=== PATIENT | male | born 1950 | race African-American/Black ===

== ENCOUNTER 2017-02-13 01:01 | Observation (INO) | payer BC, MEDICARE, OTHER ==
[2017-02-13 01:16] VITALS: BMI 25.8
--- NOTE | 2017-02-13 01:18 | PDOC ---
History of Present Illness - General Chief Complaint: Chest Pain Stated Complaint: CHEST PAIN Time Seen by Provider: 02/13/17 01:12 Past History - Past Medical History Allergies/Adverse Reactions: Allergies Allergy/AdvReac Type Severity Reaction Status Date / Time No Known Allergies Allergy Verified 02/13/17 01:14 Home Medications: Ambulatory Orders Apixaban [Eliquis] 2.5 mg PO BID 04/15/15 Insulin Glargine,Hum.rec.anlog [Lantus (10mL VIAL) -] 12 units SQ DAILY Carvedilol [Coreg -] 25 mg PO BID #60 tablet 01/26/16 Rosuvastatin [Crestor -] 20 mg PO DAILY #30 tablet 01/26/16 Aspirin Coated [Ecotrin -] 81 mg PO DAILY 02/18/16 Gabapentin 100 mg PO TID PRN 02/18/16 Acetaminophen [Tylenol .Regular Strength -] 650 mg PO Q6H PRN #0 tablet Albuterol 0.083% Nebulizer Shyla [Ventolin 0.083% Nebulizer Soln -] 1 amp NEB Q4H PRN #0 amp 02/19/16 Amlodipine Besylate [Norvasc -] 5 mg PO DAILY #30 tablet 02/19/16 Furosemide [Lasix -] 40 mg PO DAILY #30 tablet 02/19/16 Insulin Sliding Scale [Novolog Vial Sliding Scale -] 1 vial SQ HS units Levofloxacin [Levaquin -] 250 mg PO DAILY #7 tablet 02/19/16 Lisinopril [Prinivil] 5 mg PO DAILY tablet 02/19/16 Pantoprazole Sodium [Protonix -] 40 mg PO DAILY tablet.ec 02/19/16 Anemia: No Asthma: No Cardiac Disorders: Yes (CAD; ATRIAL FIBRILLATION) CVA: No COPD: No CHF: Yes Diabetes: Yes GI Disorders: No Disorders: Yes (RENAL INSUFFICIENCY) HTN: Yes Liver Disease: No Seizures: No Thyroid Disease: No - Surgical History Cardiac Surgery: Yes (POST ANGIOPLASTY) - Immunization History Immunization Up to Date: Yes - Psycho/Social/Smoking Cessation Hx Anxiety: No Suicidal Ideation: No Smoking History: Never smoked Have you smoked in the past 12 months: No Information on smoking cessation initiated: No Hx Alcohol Use: No Drug/Substance Use Hx: No Substance Use Type: None Hx Substance Use Treatment: No *Physical Exam - Vital Signs Last Vital Signs Temp Pulse Resp BP Pulse Ox 98.7 F 106 H 23 170/93 100 02/13/17 01:02/13/17 01:14 02/13/17 01:14 02/13/17 01:02/13/17 01:14
--- NOTE | 2017-02-13 01:36 | PDOC ---
History of Present Illness - General Chief Complaint: Chest Pain Stated Complaint: CHEST PAIN Time Seen by Provider: 02/13/17 01:12 - History of Present Illness Initial Comments: 02/13/17 01:30 67 year old male with PMH of Afib (on eliquist), [place] (01/2016), anemia, HTN, CHF ( EF 37% 01/2016), and DMII presenting with throat pain for the past three weeks that culminated in a "panic attack" earlier today. He said this burning sensation in his throat started all of a sudden three weeks ago. Pain is an 8/ 10 burning bilateral neck pain. Relieved by warm liquids without exacerbating factors. Relapsing and remitting. Nothing was different today about the pain but he just felt anxious because it has been going on for so long. Denies chest pain, nausea, vomiting, sob, diaphoresis, or radiation of pain. However, this exact pain occurred last year when he had his previous KS. 02/13/17 03:45 Past History - Past Medical History Allergies/Adverse Reactions: Allergies Allergy/AdvReac Type Severity Reaction Status Date / Time No Known Allergies Allergy Verified 02/13/17 01:14 Home Medications: Ambulatory Orders Apixaban [Eliquis] 2.5 mg PO BID 04/15/15 Insulin Glargine,Hum.rec.anlog [Lantus (10mL VIAL) -] 12 units SQ DAILY Rosuvastatin [Crestor -] 20 mg PO DAILY #30 tablet 01/26/16 Amlodipine Besylate [Norvasc -] 5 mg PO DAILY #30 tablet 02/19/16 Insulin Sliding Scale [Novolog Vial Sliding Scale -] 1 vial SQ HS units Hydralazine HCl [Apresoline -] 25 mg PO BID 02/13/17 Anemia: No Asthma: No Cardiac Disorders: Yes (CAD; ATRIAL FIBRILLATION) CVA: No COPD: No CHF: Yes Diabetes: Yes GI Disorders: No Disorders: Yes (RENAL INSUFFICIENCY) HTN: Yes Liver Disease: No Seizures: No Thyroid Disease: No - Surgical History Cardiac Surgery: Yes (POST ANGIOPLASTY) - Immunization History Immunization Up to Date: Yes - Psycho/Social/Smoking Cessation Hx Anxiety: No Suicidal Ideation: No Smoking History: Never smoked Have you smoked in the past 12 months: No Information on smoking cessation initiated: No Hx Alcohol Use: No Drug/Substance Use Hx: No Substance Use Type: None Hx Substance Use Treatment: No Review of Systems - Review of Systems Constitutional: No: Chills, Diaphoresis, Fever, Loss of Appetite HEENTM: Yes: Throat Pain Respiratory: No: Cough, Orthopnea, Shortness of Breath, SOB with Exertion Cardiac (ROS): Yes: Irregular Heart Rate. No: Chest Pain, Edema, Palpitations ABD/GI: No: Abdominal Distended, Constipated, Diarrhea, Nausea, Vomiting Neurological: No: Headache, Numbness, Paresthesia Psychiatric: Yes: Anxiety Endocrine: No: Excessive Sweating, Unexplained Weight Gain, Unexplained Weight Loss *Physical Exam - Vital Signs Last Vital Signs Temp Pulse Resp BP Pulse Ox 98.7 F 106 H 23 170/93 100 02/13/17 01:14 02/13/17 01:14 02/13/17 01:14 02/13/17 01:14 02/13/17 01:14 - Physical Exam General Appearance: Yes: Mild Distress HEENT: positive: Normal Voice Neck: positive: Trachea midline, Normal Thyroid, Supple. negative: Tender, Lymphadenopathy (R), Lymphadenopathy (L) Respiratory/Chest: positive: Lungs Clear, Normal Breath Sounds. negative: Respiratory Distress, Accessory Muscle Use Cardiovascular: positive: Irregular (Ocassionally irregular ). negative: Murmur , Tachycardia Gastrointestinal/Abdominal: positive: Normal Bowel Sounds, Flat, Soft. negative : Tender, Organomegaly Extremity: positive: Normal Capillary Refill, Normal Inspection Neurologic: positive: Fully Oriented, Alert ED Treatment Course - LABORATORY CBC & Chemistry Diagram: 02/13/17 01:27 02/13/17 01:27 Medical Decision Making - Medical Decision Making 67 year old male with PMH of HTN, DMII, afib (on eliquist) presenting with neck pain concerning for ACS. He claims this is the same type of pain he had when he had an KS last year. However, there are no EKG changes with a negative Troponin and this pain has been happening for three weeks. Creatinine also elevated to 2.4 which is around his baseline. His glucose returned elevated to 607. Patient admits that he has not been taking insulin for the past three days. 02/13/17 03:34 FS sugar was out of range confirming the elevated blood sugar. Will give 10 units IV push regular insulin and recheck FS in one hour. Attempted to get in touch with Dr. Cochran x 2 without response so will touched base with Dr. Harding for admission given this patient's presentation and lack of medical compliance leading to elevated blood sugars. Dr. Harding is willing to accept admission for this patient. Further HEART score pathway rule out is also warranted given his HEART score of 6 despite negative troponin. *DC/Admit/Observation/Transfer Diagnosis at time of Disposition: Type 2 diabetes mellitus with hyperglycemia - Discharge Dispostion Condition at time of disposition: Stable Admit: Yes - Attestations Physician Attestion: 02/13/17 03:51 I, Dr. Tim Adams, attest that this document has been prepared under my direction and personally reviewed by me in its entirety. I further attest, that it accurately reflects all work, treatment, procedures and medical decision -making performed by me.
[2017-02-13 01:42] LABS: MCH 28.5 pg (25.7-33.7); MCHC 32.7 g/dl (32.0-35.9); MEAN CELL VOLUME 87.2 fl (80-96); MEAN PLT VOLUME 9.7 fl (7.5-11.1); PLATELET COUNT 184 K/MM3 (134-434); RDW 14.2 % (11.9-15.9); WHITE BLOOD COUNT 6.2 K/mm3 (4.0-10.0)
[2017-02-13 01:50] LABS: INR 1.04 (0.82-1.09); PROTHROMBIN TIME (PATIENT) 11.5 SEC (9.98-11.88)
[2017-02-13 01:59] LABS: ALBUMIN 3.5 g/dl (3.4-5.0); ALK PHOS 55 U/L (45-117); ANION GAP 13 (8-16); BILIRUBIN,TOTAL 0.6 mg/dL (0.2-1.0); CALCIUM 8.7 mg/dL (8.5-10.1); CO2 23 mmol/L (21-32); CREATININE 2.4 mg/dL (0.7-1.3); SGOT/AST 18 U/L (15-37); SGPT/ALT 21 U/L (12-78); TOT PROT 6.9 g/dl (6.4-8.2); TROPONIN I < 0.02 ng/ml (0.00-0.05)
[2017-02-13 02:04] LABS: GLUCOSE,RANDOM 609 mg/dL (74-106)
[2017-02-13] MEDS ORDERED: INSULIN REGULAR HUMAN 100 UNITS/ML *VIAL IVPUSH ONE (03:47)
[2017-02-13] MEDS ORDERED: SODIUM CHLORIDE 0.9% 1000 ML INFUS.BAG IV ONE (03:49)
--- NOTE | 2017-02-13 04:06 | PDOC ---
Attending Attestation - Resident Resident Name: Tim Adams - ED Attending Attestation I have performed the following: I have examined & evaluated the patient, The case was reviewed & discussed with the resident, I agree w/resident's findings & plan, Exceptions are as noted <Karl Cook - Last Filed: 02/13/17 04:04> - Resident Resident Name: Tim Adams - ED Attending Attestation I have performed the following: I have examined & evaluated the patient, The case was reviewed & discussed with the resident, I agree w/resident's findings & plan, Exceptions are as noted - HPI HPI: 02/13/17 04:22 The patient is a 67 year old male with significant past medical history of afib on [place], [place] (01/2016), CAD s/p stents x3, hypertension, hyperlipidemia, and diabetes who presents to the ED for 3 weeks of throat pain. Patient describes his pain as a non-radiating burning sensation starting at the chest and radiating to both sides of his neck and 8/10. His pain is alleviated with warm liquids without exacerbating factors. States his pain is consistent with his previous OR last year. Admits to being noncompliant with his medications. Denies lightheadedness, diaphoresis, SOB, shoulder pain, arm pain, nausea, or vomiting. The patient denies fever, chills, cough, abdominal pain, and diarrhea. PCP: Dr. Luis Alberto Harding - Physicial Exam PE: 02/13/17 04:22 GENERAL: Well developed, well nourished. Awake and alert. No acute distress. HEENT: Normocephalic, atraumatic. PERRLA, EOMI. No conjunctival pallor. Sclera are non- icteric. Moist mucous membranes. Oropharynx is clear. NECK: Supple. Full ROM. No JVD. Carotid pulses 2+ and symmetric, without bruits. No thyromegaly. No lymphadenopathy. CARDIOVASCULAR: Regular rate and rhythm. No murmurs, rubs, or gallops. PULMONARY: No evidence of respiratory distress. Lungs clear to auscultation bilaterally. No wheezing, rales or rhonchi. ABDOMINAL: Soft. Non-tender. Non-distended. No rebound or guarding. No organomegaly. Normoactive bowel sounds. MUSCULOSKELETAL Normal range of motion at all joints. No bony deformities or tenderness. No CVA tenderness. EXTREMITIES: No cyanosis. No clubbing. No edema. No calf tenderness. SKIN: Warm and dry. Normal capillary refill. No rashes. No jaundice. NEUROLOGICAL: Alert, awake, appropriate. Cranial nerves 2-12 intact. No gross neurological deficits. <Kari Mckee - Last Filed: 02/13/17 05:01> Heart Score/ECG Review - ECG Impressions Comment:: 02/13/17 05:00 Atrial fibrillation @94bpm Incomplete LBBB ST & T wave abnormality, consider lateral ischemia Abnormal ECG <Kari Mckee - Last Filed: 02/13/17 05:01> Medical Decision Making - Medical Decision Making 02/13/17 04:22 Documentation prepared by Kari Mckee, acting as emergency medical technician for Karl Cook MD/. <Kari Mckee - Last Filed: 02/13/17 05:01>
[2017-02-13] MEDS ORDERED: INSULIN REGULAR HUMAN 100 UNITS/ML *VIAL ONE (04:13)
[2017-02-13] MEDS ORDERED: ACETAMINOPHEN 325 MG TABLET (FP) PO PRN (08:01)
[2017-02-13 08:53] LABS: BASOPHIL 0.9 % (0-2.0); EOSINOPHIL 0.9 % (0-4.5); MCHC 33.4 g/dl (32.0-35.9); MEAN CELL VOLUME 86.8 fl (80-96); MEAN PLT VOLUME 8.6 fl (7.5-11.1); NEUTROPHILS 69.8 % (42.8-82.8); PLATELET COUNT 186 K/MM3 (134-434); RDW 14.3 % (11.9-15.9)
[2017-02-13 09:26] LABS: ALBUMIN 3.3 g/dl (3.4-5.0); ALK PHOS 54 U/L (45-117); ANION GAP 6 (8-16); BILIRUBIN,TOTAL 0.6 mg/dL (0.2-1.0); CALCIUM 9.2 mg/dL (8.5-10.1); CHOLESTEROL 165 mg/dL (50-200); CO2 29 mmol/L (21-32); CREATININE 1.9 mg/dL (0.7-1.3); GLUCOSE,RANDOM 245 mg/dL (74-106); LDL CHOLESTEROL (ONLY SJRH) 83 mg/dL (5-100); MAGNESIUM 2.4 mg/dL (1.8-2.4); SGOT/AST 16 U/L (15-37); SGPT/ALT 21 U/L (12-78); TOT PROT 6.6 g/dl (6.4-8.2); TROPONIN I 0.46 ng/ml (0.00-0.05)
--- NOTE | 2017-02-13 09:28 | HP ---
Admitting History and Physical - Primary Care Physician PCP: Luis Alberto Harding - Admission Chief Complaint: chest pain History of Present Illness: ER HISTORY HPI: 02/13/17 04:22 The patient is a 67 year old male with significant past medical history of afib on eliquis, [place] (01/2016), CAD s/p stents x3, hypertension, hyperlipidemia, and diabetes who presents to the ED for 3 weeks of throat pain. Patient describes his pain as a non-radiating burning sensation starting at the chest and radiating to both sides of his neck and 8/10. His pain is alleviated with warm liquids without exacerbating factors. States his pain is consistent with his previous [place] last year. Admits to being noncompliant with his medications. Denies lightheadedness, diaphoresis, SOB, shoulder pain, arm pain, nausea, or vomiting. The patient denies fever, chills, cough, abdominal pain, and diarrhea. PCP: Dr. Luis Alberto Harding Pt examined by me in Telemetry pt states he feels fine. He c/o intermittent throat pain , moves upwards to chin and shoulders. He states he feels like he may have a heart attack and decided to come to ER . He states it felt like the OH he had last year. History Source: Patient Limitations to Obtaining History: No Limitations - Past Medical History Cardiovascular: Yes: AFIB, CAD (stent x3), HTN, Hyperlipdemia Pulmonary: Yes: Sleep Apnea Renal/: Yes: Renal Inusuff - Smoking History Smoking history: Never smoked Have you smoked in the past 12 months: No - Alcohol/Substance Use Hx Alcohol Use: No Home Medications - Allergies Allergies/Adverse Reactions: Allergies Allergy/AdvReac Type Severity Reaction Status Date / Time No Known Allergies Allergy Verified 02/13/17 01:14 - Home Medications Home Medications: Ambulatory Orders Apixaban [Eliquis] 2.5 mg PO BID 04/15/15 Insulin Glargine,Hum.rec.anlog [Lantus (10mL VIAL) -] 12 units SQ DAILY Rosuvastatin [Crestor -] 20 mg PO DAILY #30 tablet 01/26/16 Amlodipine Besylate [Norvasc -] 5 mg PO DAILY #30 tablet 02/19/16 Insulin Sliding Scale [Novolog Vial Sliding Scale -] 1 vial SQ HS units Hydralazine HCl [Apresoline -] 25 mg PO BID 02/13/17 Review of Systems - Review of Systems Constitutional: denies: Chills, Fever, Lethargy, Loss of Appetite, Weakness Cardiovascular: reports: Other (neck pain). denies: Chest Pain, Edema, Palpitations, Shortness of Breath Physical Examination Vital Signs: Vital Signs Temperature 98.7 F 02/13/17 01:14 Pulse Rate 82 02/13/17 06:37 Respiratory Rate 19 02/13/17 06:37 Blood Pressure 160/88 02/13/17 06:37 O2 Sat by Pulse Oximetry (%) 100 02/13/17 06:37 Constitutional: Yes: No Distress, Calm Neck: Yes: Trachea Midline. No: Lymphadenopathy, Tenderness Cardiovascular: Yes: Pulse Irregular Respiratory: Yes: CTA Bilaterally Gastrointestinal: Yes: Normal Bowel Sounds, Soft. 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) use of insulin (2) Chest pain Code(s): R07.9 - CHEST PAIN, UNSPECIFIED Qualifiers: Chest pain type: other chest pain Qualified Code(s): R07.89 - Other chest pain; R07.8 - Other chest pain (3) Chronic renal insufficiency, stage III (moderate) Code(s): N18.3 - CHRONIC KIDNEY DISEASE, STAGE 3 (MODERATE) (4) Diabetes mellitus, insulin dependent (IDDM), uncontrolled Code(s): E10.65 - TYPE 1 DIABETES MELLITUS WITH HYPERGLYCEMIA Qualifiers: Diabetes mellitus complication status: without complication Qualified Code(s): E10.65 - Type 1 diabetes mellitus with hyperglycemia (5) HTN (hypertension) Code(s): I10 - ESSENTIAL (PRIMARY) HYPERTENSION Qualifiers: Hypertension type: renovascular hypertension Qualified Code(s): I15.0 - Renovascular hypertension Assessment/Plan PLAN Telemetry monitoring Cardiology eval Noted second set Troponin elevated, will check third set Check Kidney and urinary bladder sono - for renal failure iv fluids continue with meds stress test as per Cardiology DVT prophylaxis-- ELiquis check A1C Time spent 40 min
[2017-02-13] MEDS: INSULIN DETEMIR 100 UNITS/ML MDV SQ SCH ×2 (10:00→21:34)
[2017-02-13] MEDS: APIXABAN 2.5 MG TABLET PO SCH ×2 (10:31→21:33)
[2017-02-13] MEDS: amLODIPine BESYLATE 5 MG TABLET (FP) PO SCH (10:31)
[2017-02-13] MEDS: hydrALAZINE HCL 25 MG TABLET (FP) PO SCH ×2 (10:32→21:32)
--- NOTE | 2017-02-13 11:34 | CON.CARD ---
Cardiology Consult (text) - Consultation Consultation Note: CC: cp hpi: 67 yo m hx cad s/p pci, htn, hld, ckd, pafib, zachary, ED, here with cp. has been having some cold symptoms for the past few weeks with intermittent throat pain in the past few weeks when breathing cold air. On presentation had been sitting in front of air conditioner and had recurrence of throat discomfort. Somewhat similar to prior anginal pain which radiated to throat and so patient became concerned. no symptoms on exertion. no recent decrease in exercise capacity. no sob, palps, dizzy, loc, pnd, orthopnea, le edema. Sees Dr. Cochran for cardio. pmhx: Per hpi psurghx: PCI social hx: no tob fam hx: no premature cad/scd ROS: per hpi; no nvd, fever, rash, BAR, vision changes, wt loss, muscle pain, nasal congestion Ambulatory Orders Apixaban [Eliquis] 2.5 mg PO BID 04/15/15 Insulin Glargine,Hum.rec.anlog [Lantus (10mL VIAL) -] 12 units SQ DAILY Rosuvastatin [Crestor -] 20 mg PO DAILY #30 tablet 01/26/16 Amlodipine Besylate [Norvasc -] 5 mg PO DAILY #30 tablet 02/19/16 Insulin Sliding Scale [Novolog Vial Sliding Scale -] 1 vial SQ HS units Hydralazine HCl [Apresoline -] 25 mg PO BID 02/13/17 Current Medications Acetaminophen (Tylenol -) 650 mg PO Q6H PRN PRN Reason: FEVER OR PAIN Amlodipine Besylate (Norvasc -) 5 mg PO DAILY [facility] Last Admin: 02/13/17 10:31 Dose: 5 mg Apixaban (Eliquis -) 2.5 mg PO BID [facility] Last Admin: 02/13/17 10:31 Dose: 2.5 mg Hydralazine HCl (Apresoline -) 25 mg PO BID [facility] Last Admin: 02/13/17 10:32 Dose: 25 mg Insulin Aspart (Novolog Vial Sliding Scale -) 1 vial SQ [facility] PRN Reason: Protocol Insulin Detemir (Levemir Vial) 15 units SQ BID@0700,2200 [facility] Rosuvastatin Calcium (Crestor -) 20 mg PO HS [facility] Vital Signs - 24 hr 02/13/17 02/13/17 02/13/17 01:14 01:15 06:37 Temperature 98.7 F Pulse Rate 106 H Pulse Rate [ 82 Right] Respiratory 23 19 Rate Blood Pressure 170/93 Blood Pressure 160/88 [Left Arm] O2 Sat by Pulse 100 98 100 Oximetry (%) 02/13/17 08:02 Temperature 98 F Pulse Rate 77 Pulse Rate [ Right] Respiratory 20 Rate Blood Pressure 149/95 Blood Pressure [Left Arm] O2 Sat by Pulse Oximetry (%) Intake & Output 02/11/17 02/12/17 02/13/17 02/14/17 07:59 07:59 07:59 07:59 Weight 160 lb NAD, calm JVD flat, neck supple RRR nl s1, s2 2/6 murmur at apex CTAB, nl effort + bs soft nt nd ext without edema, cyanosis, clubbing + dp/pt no jaundice, diaphoresis CBC, BMP 02/13/17 08:35 02/13/17 08:35 Laboratory Tests 02/17/16 02/13/17 02/13/17 23:45 01:27 01:27 Creatinine 2.4 H D Random Glucose 609 H* D Hemoglobin A1c % Magnesium Total Bilirubin AST ALT Alkaline Phosphatase B-Natriuretic Peptide 2988.18 H Troponin I < 0.02 D Albumin Triglycerides Cholesterol Total LDL Cholesterol HDL Cholesterol 02/13/17 02/13/17 08:35 08:35 Creatinine Random Glucose Hemoglobin A1c % 10.6 H D Magnesium 2.4 Total Bilirubin 0.6 AST 16 ALT 21 Alkaline Phosphatase 54 B-Natriuretic Peptide 1047.86 H Troponin I 0.46 H D Albumin 3.3 L Triglycerides 126 D Cholesterol 165 Total LDL Cholesterol 83 HDL Cholesterol 47 D CXR: wnl ekg: afib, incomplete lbbb. lateral STD/TWI. similar to priors tele: rate controlled afib Cath/PCI 11/2013: left dominant system , LCx-OM1 and OM2 NEIDA PCI 11/2013 , then staged for mid LAD orb atherectomy and NEIDA PCI 12/2013--++ FFR Stress MPI 10/2013: 5 mins 30 secs, moderate inferior / infero-lateral ischemia (cath after this) pharm nuc stress 01/2016: No EKG changes. Large inferior fixed defect from base to apex with vibha-infarct ischemia of the apex. EF 37%. DEVIN 04/2015: normal LV / RV function, mod MR Echo 02/2015: normal LV/RV function, imp relaxation, no sig valv abn echo 01/2016: Mild LV dilation. Normal EF. Mild HK of basal inferior wall. Nl RV. Severe LAE. Mild RICARDO. Moderate to severe MR. Mild-mod TR. PVR 02/2015: mild left PAD, PÉREZ right 1.06, left 0.87 Arterial Doppler 03/2015: no sig stenosis Carotid Doppler 02/2015: mild athero, no sig stenosis a/p: 67 yo m hx cad s/p pci, htn, hld, ckd, pafib, zachary, ED, here with cp. cad s/p pci's: - intermediate troponin elevation from normal in setting of DEVORAH (cr 2.4 yesterday - blood sugar 609). Flat trend. nl ck-mb. low suspicion for acs - He is poor candidate for pci given anemia of unclear source and CKD thus have continued with med rx of cad. Will get stress test in am to rule out high risk disease. otherwise, con't current mgm't. -cont asa, crestor, norvasc. also on coreg as outpatient. will resume after stress testing. Anemia - stable, hgb pAF: - CHADSVasc = 3, on eliquis, stable. was on 5 mg bid as outpatient. will adjust dose accordingly - rate controlled. BB mgm't as above. Mod MR -bp control CKD - initially here with elevated CR, now improved. HPL: - cont crestor HTN: - monitor with ongoing med adjustments. zachary -cpap
[2017-02-13] MEDS: INSULIN SLIDING SCALE (NOVOLOG) 1 VIAL SQ SCH ×3 (13:04→21:33)
[2017-02-13 13:21] LABS: TROPONIN I 0.44 ng/ml (0.00-0.05)
--- NOTE | 2017-02-13 17:06 | EKG ---
Test Reason : Blood Pressure : / mmHG Vent. Rate : 094 BPM Atrial Rate : 357 BPM P-R Int : 000 ms QRS Dur : 106 ms QT Int : 346 ms P-R-T Axes : 000 063 161 degrees QTc Int : 432 ms ATRIAL FIBRILLATION WITH MODERATE VENTRICULAR RESPONSE INCOMPLETE LEFT BUNDLE BRANCH BLOCK ABNORMAL ECG WHEN COMPARED WITH ECG OF 17-FEB-2016 22:46, ATRIAL FIBRILLATION HAS REPLACED SINUS RHYTHM QT HAS SHORTENED Confirmed by NICK OVIEDO MD ([id number]) on 02/13/2017 5:06:12 PM Referred By: Confirmed By:NICK OVIEDO MD
[2017-02-13] MEDS: ROSUVASTATIN CA 20 MG TABLET (FP) PO SCH (21:32)
[2017-02-14] MEDS: INSULIN DETEMIR 100 UNITS/ML MDV SQ SCH ×2 (06:29→22:43)
[2017-02-14] MEDS: INSULIN SLIDING SCALE (NOVOLOG) 1 VIAL SQ SCH ×4 (06:31→22:43)
[2017-02-14 09:34] LABS: ANION GAP 9 (8-16); CALCIUM 8.6 mg/dL (8.5-10.1); CO2 27 mmol/L (21-32); CREATININE 1.9 mg/dL (0.7-1.3); GLUCOSE,RANDOM 151 mg/dL (74-106)
--- NOTE | 2017-02-14 10:10 | PN ---
Progress Note, Physician Chief Complaint: for stress test no complaints - Current Medication List Current Medications: Active Medications Acetaminophen (Tylenol -) 650 mg PO Q6H PRN PRN Reason: FEVER OR PAIN Amlodipine Besylate (Norvasc -) 5 mg PO DAILY [facility] Last Admin: 02/13/17 10:31 Dose: 5 mg Apixaban (Eliquis -) 5 mg PO BID [facility] Hydralazine HCl (Apresoline -) 25 mg PO BID [facility] Last Admin: 02/13/17 21:32 Dose: 25 mg Insulin Aspart (Novolog Vial Sliding Scale -) 1 vial SQ ACHS [facility] PRN Reason: Protocol Last Admin: 02/14/17 06:31 Dose: 3 units Insulin Detemir (Levemir Vial) 15 units SQ BID@0700,2200 [facility] Last Admin: 02/14/17 06:29 Dose: 15 units Rosuvastatin Calcium (Crestor -) 20 mg PO HS [facility] Last Admin: 02/13/17 21:32 Dose: 20 mg - Objective Vital Signs: Vital Signs Temperature 98.3 F 02/14/17 06:00 Pulse Rate 80 02/14/17 06:00 Respiratory Rate 18 02/14/17 06:00 Blood Pressure 132/82 02/14/17 06:00 O2 Sat by Pulse Oximetry (%) 100 02/13/17 21:00 Constitutional: Yes: No Distress, Calm Cardiovascular: Yes: Pulse Irregular Respiratory: Yes: CTA Bilaterally Gastrointestinal: Yes: Normal Bowel Sounds, Soft. No: Tenderness Edema: No Psychiatric: Yes: Alert Labs: CBC, BMP 02/13/17 08:35 02/14/17 05:48 INR, PTT INR 1.04 (0.82-1.09) 02/13/17 01:27 Problem List - Problems (1) Hyperglycemia due to type 2 diabetes mellitus Code(s): E11.65 - TYPE 2 DIABETES MELLITUS WITH HYPERGLYCEMIA Qualifiers: Diabetes mellitus chcf insulin use: with chcf use Qualified Code(s): E11.65 - Type 2 diabetes mellitus with hyperglycemia (2) Chest pain Code(s): R07.9 - CHEST PAIN, UNSPECIFIED Qualifiers: Chest pain type: other chest pain Qualified Code(s): R07.89 - Other chest pain; R07.8 - Other chest pain (3) Chronic renal insufficiency, stage III (moderate) Code(s): N18.3 - CHRONIC KIDNEY DISEASE, STAGE 3 (MODERATE) (4) Diabetes mellitus, insulin dependent (IDDM), uncontrolled Code(s): E10.65 - TYPE 1 DIABETES MELLITUS WITH HYPERGLYCEMIA Qualifiers: Diabetes mellitus complication status: without complication Qualified Code(s): E10.65 - Type 1 diabetes mellitus with hyperglycemia (5) HTN (hypertension) Code(s): I10 - ESSENTIAL (PRIMARY) HYPERTENSION Qualifiers: Hypertension type: renovascular hypertension Qualified Code(s): I15.0 - Renovascular hypertension Assessment/Plan PLAN Telemetry monitoring Cardiology eval appreciated for stress test Renal function at baseline- will dc fluids renal sono normal continue with meds A1C 10-- increase Levemir , dietitian eval DVT prophylaxis-- ELiquis
[2017-02-14] MEDS ORDERED: DIPYRIDAMOLE 50 MG/10 ML VIAL IVPB ONE (11:49)
[2017-02-14] MEDS: APIXABAN 5 MG TABLET PO SCH ×2 (13:46→22:28)
[2017-02-14] MEDS: hydrALAZINE HCL 25 MG TABLET (FP) PO SCH ×2 (13:46→22:28)
[2017-02-14] MEDS: amLODIPine BESYLATE 5 MG TABLET (FP) PO SCH (13:46)
[2017-02-14] MEDS: ROSUVASTATIN CA 20 MG TABLET (FP) PO SCH (22:28)
[2017-02-15] MEDS: INSULIN DETEMIR 100 UNITS/ML MDV SQ SCH (06:38)
[2017-02-15] MEDS: INSULIN SLIDING SCALE (NOVOLOG) 1 VIAL SQ SCH ×3 (06:38→16:32)
--- NOTE | 2017-02-15 08:24 | PN ---
Progress Note (short form) - Note Progress Note: CC: cp S: no recurrence of chest/throat discomfort. Had first part of stress test yesterday. no sob, palps, dizziness Active Medications Acetaminophen (Tylenol -) 650 mg PO Q6H PRN PRN Reason: FEVER OR PAIN Amlodipine Besylate (Norvasc -) 5 mg PO DAILY [facility] Last Admin: 02/13/17 10:31 Dose: 5 mg Apixaban (Eliquis -) 5 mg PO BID [facility] Hydralazine HCl (Apresoline -) 25 mg PO BID [facility] Last Admin: 02/13/17 21:32 Dose: 25 mg Insulin Aspart (Novolog Vial Sliding Scale -) 1 vial SQ ACHS [facility] PRN Reason: Protocol Last Admin: 02/14/17 06:31 Dose: 3 units Insulin Detemir (Levemir Vial) 15 units SQ BID@0700,2200 [facility] Last Admin: 02/14/17 06:29 Dose: 15 units Rosuvastatin Calcium (Crestor -) 20 mg PO HS [facility] Last Admin: 02/13/17 21:32 Dose: 20 mg Vital Signs Temperature 98.3 F 02/14/17 06:00 Pulse Rate 80 02/14/17 06:00 Respiratory Rate 18 02/14/17 06:00 Blood Pressure 132/82 02/14/17 06:00 O2 Sat by Pulse Oximetry (%) 100 02/13/17 21:00 NAD, calm JVD flat, neck supple RRR nl s1, s2 2/6 murmur at apex CTAB, nl effort + bs soft nt nd ext without edema, cyanosis, clubbing + dp/pt no jaundice, diaphoresis Laboratory Tests 02/13/17 02/13/17 02/13/17 08:35 08:35 12:45 Sodium Potassium Chloride Carbon Dioxide Anion Gap BUN Creatinine Random Glucose Hemoglobin A1c % 10.6 H D Calcium CK-MB (CK-2) 3.534 3.378 Troponin I 0.46 H D 0.44 H 02/14/17 05:48 Sodium 142 Potassium 3.6 Chloride 106 Carbon Dioxide 27 Anion Gap 9 BUN 30 H Creatinine 1.9 H Random Glucose 151 H D Hemoglobin A1c % Calcium 8.6 CK-MB (CK-2) Troponin I CXR: wnl ekg: afib, incomplete lbbb. lateral STD/TWI. similar to priors tele: rate controlled afib Cath/PCI 11/2013: left dominant system , LCx-OM1 and OM2 NEIDA PCI 11/2013 , then staged for mid LAD orb atherectomy and NEIDA PCI 12/2013--++ FFR Stress MPI 10/2013: 5 mins 30 secs, moderate inferior / infero-lateral ischemia (cath after this) pharm nuc stress 01/2016: No EKG changes. Large inferior fixed defect from base to apex with vibha-infarct ischemia of the apex. EF 37%. DEVIN 04/2015: normal LV / RV function, mod MR Echo 02/2015: normal LV/RV function, imp relaxation, no sig valv abn echo 01/2016: Mild LV dilation. Normal EF. Mild HK of basal inferior wall. Nl RV. Severe LAE. Mild RICARDO. Moderate to severe MR. Mild-mod TR. PVR 02/2015: mild left PAD, PÉREZ right 1.06, left 0.87 Arterial Doppler 03/2015: no sig stenosis Carotid Doppler 02/2015: mild athero, no sig stenosis a/p: 67 yo m hx cad s/p pci, htn, hld, ckd, pafib, zachary, ED, here with cp. cad s/p pci's: - intermediate troponin elevation from normal in setting of DEVORAH (cr 2.4 yesterday - blood sugar 609). Flat trend. nl ck-mb. low suspicion for acs - He is poor candidate for pci given anemia of unclear source and CKD thus have continued with med rx of cad. Sress test to rule out high risk disease. - Only did 1st part of stress test today. Will complete stress tomorrow. -cont asa, crestor, norvasc. also on coreg as outpatient. will resume after stress testing. Anemia - stable, hgb pAF: - CHADSVasc = 3, on eliquis, stable. was on 5 mg bid as outpatient. will adjust dose accordingly - rate controlled. BB mgm't as above. Mod MR -bp control CKD - initially here with elevated CR, now improved. HPL: - cont crestor HTN: - monitor with ongoing med adjustments. zachary -cpap
--- NOTE | 2017-02-15 10:24 | PN ---
Progress Note, Physician Chief Complaint: awaiting second part stress test No chest pain No throat pain - Current Medication List Current Medications: Active Medications Acetaminophen (Tylenol -) 650 mg PO Q6H PRN PRN Reason: FEVER OR PAIN Amlodipine Besylate (Norvasc -) 5 mg PO DAILY [facility] Last Admin: 02/14/17 13:46 Dose: 5 mg Apixaban (Eliquis -) 5 mg PO BID [facility] Last Admin: 02/14/17 22:28 Dose: 5 mg Hydralazine HCl (Apresoline -) 25 mg PO BID [facility] Last Admin: 02/14/17 22:28 Dose: 25 mg Insulin Aspart (Novolog Vial Sliding Scale -) 1 vial SQ ACHS [facility] PRN Reason: Protocol Last Admin: 02/15/17 06:38 Dose: Not Given Insulin Detemir (Levemir Vial) 18 units SQ BID@0700,2200 [facility] Last Admin: 02/15/17 06:38 Dose: Not Given Rosuvastatin Calcium (Crestor -) 20 mg PO HS [facility] Last Admin: 02/14/17 22:28 Dose: 20 mg - Objective Vital Signs: Vital Signs Temperature 98.2 F 02/15/17 08:15 Pulse Rate 94 H 02/15/17 08:15 Respiratory Rate 14 02/15/17 08:15 Blood Pressure 108/64 02/15/17 08:15 O2 Sat by Pulse Oximetry (%) 100 02/14/17 21:00 Constitutional: Yes: No Distress Cardiovascular: Yes: Pulse Irregular Respiratory: Yes: CTA Bilaterally Gastrointestinal: Yes: Normal Bowel Sounds, Soft. No: Distention, Tenderness Edema: No Labs: CBC, BMP 02/13/17 08:35 02/14/17 05:48 INR, PTT INR 1.04 (0.82-1.09) 02/13/17 01:27 Problem List - Problems (1) Hyperglycemia due to type 2 diabetes mellitus Code(s): E11.65 - TYPE 2 DIABETES MELLITUS WITH HYPERGLYCEMIA Qualifiers: Diabetes mellitus intermediate card tender insulin use: with intermediate card tender use Qualified Code(s): E11.65 - Type 2 diabetes mellitus with hyperglycemia (2) Chest pain Code(s): R07.9 - CHEST PAIN, UNSPECIFIED Qualifiers: Chest pain type: other chest pain Qualified Code(s): R07.89 - Other chest pain; R07.8 - Other chest pain (3) Chronic renal insufficiency, stage III (moderate) Code(s): N18.3 - CHRONIC KIDNEY DISEASE, STAGE 3 (MODERATE) (4) Diabetes mellitus, insulin dependent (IDDM), uncontrolled Code(s): E10.65 - TYPE 1 DIABETES MELLITUS WITH HYPERGLYCEMIA Qualifiers: Diabetes mellitus complication status: without complication (5) HTN (hypertension) Code(s): I10 - ESSENTIAL (PRIMARY) HYPERTENSION Qualifiers: Hypertension type: renovascular hypertension Qualified Code(s): I15.0 - Renovascular hypertension Assessment/Plan PLAN Telemetry monitoring for stress test- 2nd part today Renal function at baseline renal sono normal continue with meds A1C 10-- increase Levemir , dietitian eval DVT prophylaxis-- Kameron jarrell planning if stress test normal
[2017-02-15] MEDS: hydrALAZINE HCL 25 MG TABLET (FP) PO SCH (12:19)
[2017-02-15] MEDS: APIXABAN 5 MG TABLET PO SCH (12:19)
[2017-02-15] MEDS: amLODIPine BESYLATE 5 MG TABLET (FP) PO SCH (12:19)
--- NOTE | 2017-02-15 14:12 | PN ---
Progress Note (short form) - Note Progress Note: S: no recurrence of chest/throat discomfort. no sob, palps, dizziness Current Medications Generic Name Dose Route Start Last Admin Trade Name Gregorio PRN Reason Stop Dose Admin Acetaminophen 650 mg 02/13/17 08:01 Tylenol - PO Q6H PRN FEVER OR PAIN Amlodipine Besylate 5 mg 02/13/17 10:00 02/15/17 12:19 Norvasc - PO 5 mg DAILY [facility] Administration Apixaban 5 mg 02/14/17 10:00 02/15/17 12:19 Eliquis - PO 5 mg BID ANJALI Administration Hydralazine HCl 25 mg 02/13/17 10:00 02/15/17 12:19 Apresoline - PO 25 mg BID ANJALI Administration Insulin Aspart 1 vial 02/13/17 11:00 02/15/17 12:19 Novolog Vial Sliding Scale - SQ 3 units ACHS [facility] Administration Protocol Insulin Detemir 18 units 02/14/17 22:00 02/15/17 06:38 Levemir Vial SQ Not Given BID@0700,2200 [facility] Rosuvastatin Calcium 20 mg 02/13/17 22:00 02/14/17 22:28 Crestor - PO 20 mg HS ANJALI Administration Vital Signs Period Temp Pulse Resp BP Sys/Beckford Pulse Ox Last 24 Hr 97.8 F-98.8 F 80-94 14-20 108-150/64-76 96-100 NAD, calm JVD flat, neck supple RRR nl s1, s2 2/6 murmur at apex CTAB, nl effort + bs soft nt nd ext without edema, cyanosis, clubbing no jaundice, diaphoresis CBC, BMP 02/13/17 08:35 02/14/17 05:48 CXR: wnl ekg: afib, incomplete lbbb. lateral STD/TWI. similar to priors tele: rate controlled afib Cath/PCI 11/2013: left dominant system , LCx-OM1 and OM2 NEIDA PCI 11/2013 , then staged for mid LAD orb atherectomy and NEIDA PCI 12/2013--++ FFR Stress MPI 10/2013: 5 mins 30 secs, moderate inferior / infero-lateral ischemia (cath after this) pharm nuc stress 01/2016: No EKG changes. Large inferior fixed defect from base to apex with vibha-infarct ischemia of the apex. EF 37%. DEVIN 04/2015: normal LV / RV function, mod MR Echo 02/2015: normal LV/RV function, imp relaxation, no sig valv abn echo 01/2016: Mild LV dilation. Normal EF. Mild HK of basal inferior wall. Nl RV. Severe LAE. Mild RICARDO. Moderate to severe MR. Mild-mod TR. PVR 02/2015: mild left PAD, PÉREZ right 1.06, left 0.87 Arterial Doppler 03/2015: no sig stenosis Carotid Doppler 02/2015: mild athero, no sig stenosis a/p: 67 yo m hx cad s/p pci, htn, hld, ckd, pafib, zachary, ED, here with cp. cad s/p pci's: - intermediate troponin elevation from normal in setting of DEVORAH (cr 2.4 yesterday - blood sugar 609). Flat trend. nl ck-mb. low suspicion for acs - Stress test was done here to rule out high risk disease and stress test shows inferolateral scar with mild vibha-infarct ischemia which is similar to prior mibi from last year. - Given his relatively unchanged stress test results with low risk findings, and his anemia of unclear source and CKD, will cont with med rx of cad. -cont asa, crestor, norvasc, coreg. Anemia - stable, hgb pAF: - CHADSVasc = 3, on eliquis, stable. - rate controlled, cont coreg Mod MR -bp control CKD - initially here with elevated CR, now improved. HPL: - cont crestor HTN: - monitor with ongoing med adjustments. zachary -cpap cardiac winters stable for dc
--- NOTE | 2017-02-15 16:58 | DS ---
Physical Examination Vital Signs: Vital Signs Temperature 98.4 F 02/15/17 13:55 Pulse Rate 96 H 02/15/17 13:55 Respiratory Rate 18 02/15/17 13:55 Blood Pressure 121/71 02/15/17 13:55 O2 Sat by Pulse Oximetry (%) 96 02/15/17 09:00 Labs: CBC, BMP 02/13/17 08:35 02/14/17 05:48 Discharge Summary Reason For Visit: HYPERGLYCEMIA DUE TO TYPE 2 DM Current Active Problems Hyperglycemia due to type 2 diabetes mellitus (Acute) Hospital Course: see progress note of the same date Patient went for stress test today, second partsimilar findings as previous stress test. Cleared by cardiology for discharge to home Condition: Improved - Instructions Diet, Activity, Other Instructions: FOLLOW UP WITH PMD AND CARDIOLOGY. Referrals: Hamilton Cochran MD [Staff Physician] - Luis Alberto Harding MD [Primary Care Provider] - Disposition: HOME - Home Medications Comprehensive Discharge Medication List: Ambulatory Orders Apixaban [Eliquis] 2.5 mg PO BID 04/15/15 Insulin Glargine,Hum.rec.anlog [Lantus (10mL VIAL) -] 12 units SQ DAILY Rosuvastatin [Crestor -] 20 mg PO DAILY #30 tablet 01/26/16 Amlodipine Besylate [Norvasc -] 5 mg PO DAILY #30 tablet 02/19/16 Insulin Sliding Scale [Novolog Vial Sliding Scale -] 1 vial SQ HS units Hydralazine HCl [Apresoline -] 25 mg PO BID 02/13/17
[2017-02-15 18:41] VITALS: BP 117/80; PULSE 90; TEMP 98.2
== END 2017-02-15 18:16 | disposition home or self-care (01) ==
LOC: JER 01:01 → INTOOBSV 03:52 → JERBED 03:52 → J4W 07:43
PROVIDERS: ADMIT Internal Medicine; ATTEND Internal Medicine
PROC: 3E033VG Introduction of Insulin into Peripheral Vein, Percutaneous Approach (ICD-10-PCS; principal; 2017-02-13)
PROC: 3E013VG Introduction of Insulin into Subcutaneous Tissue, Percutaneous Approach (ICD-10-PCS; 2017-02-13)
DX: E11.65 Type 2 diabetes mellitus with hyperglycemia (principal); Z79.4 Long term (current) use of insulin; R07.9 Chest pain, unspecified; I12.9 Hypertensive chronic kidney disease with stage 1 through stage 4 chronic kidney disease, or unspecified chronic kidney disease; E11.22 Type 2 diabetes mellitus with diabetic chronic kidney disease; N18.3 Chronic kidney disease, stage 3 (moderate); I48.0 Paroxysmal atrial fibrillation; Z79.01 Long term (current) use of anticoagulants; I25.10 Atherosclerotic heart disease of native coronary artery without angina pectoris; I50.9 Heart failure, unspecified; G47.33 Obstructive sleep apnea (adult) (pediatric); Z99.89 Dependence on other enabling machines and devices; E78.5 Hyperlipidemia, unspecified; Z95.5 Presence of coronary angioplasty implant and graft
CPT/HCPCS: 36415; 71010-TC; 76775-TC; 76856-TC; 78452-TC; 80048; 80053; 80061; 82550; 82553; 83036; 83721; 83735; 83880; 84484; 85025; 85027; 85610; 93005; 93010; 93017; 99283-25; A9502; G0378; J1245

== ENCOUNTER 2017-02-24 12:39 | Emergency (ER) | payer BC ==
--- NOTE | 2017-02-24 12:46 | PDOC ---
History of Present Illness - General Chief Complaint: Weakness Stated Complaint: FEELING WEAK BLOOD PRESSURE LOW Time Seen by Provider: 02/24/17 12:44 History Source: Patient Exam Limitations: No Limitations - History of Present Illness Initial Comments: 02/24/17 12:50 67 y/o with a history of Afib on Eliquis, Insulin dependent DM, HTN, CHF, CAD s/ p MD (01/2016), anemia, HTN, CHF (EF 37% 01/2016) recent admission for hyperglycemia who presents emergency department with a complaint of weakness. Patient states he noticed his symptoms 2 days ago. He tells the nurse that he awoke this morning feeling well, developed weakness Decided to go to the pharmacy to try to get his glucometer He did not eat this morning because he got up late He checked his blood pressure and noted it was low - 105/60 He denies chest pain, palpitations. He noticed generalized weakness, denies focal weakness or numbness. Patient states he is tolerating po with no difficulty Has noted that earlier in the week his stools looked dark but they have reportedly cleared up. He was seen by his primary care physician this past week, he reported his symptoms, was asked to follow up with GI He denies fevers or chills PMH: Afib on Eliquis, DM, HTN, CAD, CHF PSH: Cardiac cathetherization, stent x 3 Meds: Eliquis, ASA, Insulin, Crestor, Norvasc, Coreg ALL: NKDA Social: denies alcohol, drug, cigarette use PMD: [employer] Tester: Faby 01/21/16 07:13 GENERAL/CONSTITUTIONAL: Yes: Weakness No: fever, chills, loss of appetite. HEAD, EYES, EARS, NOSE AND THROAT: No: change in vision, ear pain, discharge, sore throat, throat swelling. CARDIOVASCULAR: Yes: weakness No: lightheadedness, palpitations, syncope RESPIRATORY: No: shortness of breath, cough, wheezing, hemoptysis, stridor. GASTROINTESTINAL: No: nausea, vomiting, diarrhea, abdominal cramping, rectal bleeding, constipation. GENITOURINARY: No: dysuria, hematuria, frequency, urgency, flank pain. MUSCULOSKELETAL: No: back pain, neck pain, joint pain, muscle swelling or pain SKIN: No: lesions, pallor, rash or easy bruising. NEUROLOGIC: No: headache, vertigo, paresthesias, weakness ENDOCRINE: No: unexplained weight gain or loss HEMATOLOGIC/LYMPHATIC: No: anemia, easy bleeding, swelling nodes. GENERAL: The patient is in no acute distress, appear pale to me. HEAD: Normal with no signs of trauma. EYES: PERRLA, EOMI, sclera anicteric, conjunctiva pale. ENT: Ears normal, nares patent, oropharynx clear without exudates. Dry mucous membranes. NECK: Normal range of motion, supple without lymphadenopathy, JVD, or masses. LUNGS: Breath sounds equal, clear to auscultation bilaterally. No wheezes, and no crackles. HEART: Irregular rhythm, normal S1 and S2 without murmur, rub or gallop. ABDOMEN: Soft, nontender, normoactive bowel sounds. No guarding, no rebound. EXTREMITIES: Normal range of motion, no edema. No clubbing or cyanosis. No erythema, or tenderness. NEUROLOGICAL: Cranial nerves II through XII grossly intact. Normal speech. No focal neurological deficits. MUSCULOSKELETAL: Back non-tender to palpation, no CVA tenderness SKIN: Warm, Dry, normal turgor, no rashes or lesions noted. 02/24/17 12:51 02/24/17 13:05 02/24/17 13:08 Past History - Past Medical History Allergies/Adverse Reactions: Allergies Allergy/AdvReac Type Severity Reaction Status Date / Time No Known Allergies Allergy Verified 02/24/17 12:44 Home Medications: Ambulatory Orders Apixaban [Eliquis] 2.5 mg PO BID 04/15/15 Rosuvastatin [Crestor -] 20 mg PO DAILY #30 tablet 01/26/16 Hydralazine HCl [Apresoline -] 25 mg PO BID 02/13/17 Amlodipine Besylate [Norvasc -] 5 mg PO BID 02/24/17 Aspirin [Aspirin EC] 81 mg PO DAILY 02/24/17 Carvedilol [Coreg] 12.5 mg PO BID 02/24/17 Insulin Glargine,Hum.rec.anlog [Lantus (nf)] 12 units SQ DAILY 02/24/17 Anemia: Yes Asthma: No Cardiac Disorders: Yes (CAD; ATRIAL FIBRILLATION) CVA: No COPD: No CHF: Yes Diabetes: Yes GI Disorders: No Disorders: Yes (RENAL INSUFFICIENCY) HTN: Yes Liver Disease: No Seizures: No Thyroid Disease: No - Surgical History Cardiac Surgery: Yes (POST ANGIOPLASTY) - Immunization History Immunization Up to Date: Yes - Psycho/Social/Smoking Cessation Hx Anxiety: No Suicidal Ideation: No Smoking History: Never smoked Have you smoked in the past 12 months: No Hx Alcohol Use: No Drug/Substance Use Hx: No Substance Use Type: None Hx Substance Use Treatment: No ED Treatment Course - LABORATORY CBC & Chemistry Diagram: 02/24/17 13:12 02/24/17 13:12 Medical Decision Making - Medical Decision Making 02/24/17 13:07 Will do basic labs, will do EKG, will hydrate Will do CXR Will contact PMD 02/24/17 13:47 Laboratory Tests 02/13/17 02/24/17 02/24/17 08:35 13:12 13:12 WBC 7.0 4.9 Hgb 11.2 L 8.2 L Hct 33.6 L 24.9 L Plt Count 186 377 INR 1.27 H 02/24/17 14:32 02/24/17 14:32 Laboratory Tests 02/24/17 02/24/17 02/24/17 13:12 13:12 13:12 INR 1.27 H Sodium 136 Potassium 3.8 Chloride 105 Carbon Dioxide 23 BUN 23 H Creatinine 2.0 H Random Glucose 175 H D Creatine Kinase 182 H Troponin I < 0.03 L D Stool Occult Blood 02/24/17 14:26 INR Sodium Potassium Chloride Carbon Dioxide BUN Creatinine Random Glucose Creatine Kinase Troponin I Stool Occult Blood Negative Case reviewed with Dr. Butler. She recommends that patient be evaluated for active GI bleeding. If negative patient can be discharged home, given follow with his primary care physician. Patient states he feels better. Given 500 mL normal saline. Will follow up with his primary care physician, rotary adjuster, GI doctor next week. *DC/Admit/Observation/Transfer Diagnosis at time of Disposition: Weakness - Discharge Dispostion Disposition: HOME Condition at time of disposition: Stable Admit: No - Referrals Referrals: Luis Alberto Harding MD [Staff Physician] - Hamilton Cochran MD [Staff Physician] - Tab Moses MD [Staff Physician] - - Patient Instructions Printed Discharge Instructions: DI for Muscle Weakness Additional Instructions: Return to the emergency department immediately with ANY new, persistent or worsening symptoms. Continue any medications as previously prescribed by your physician. You should follow up with your primary doctor as soon as possible regarding today's emergency department visit. . Please make sure your doctor reviews the results of your emergency evaluation. Thank you for coming to the [facility] today for your care. It was a pleasure to see you today. Please note that your evaluation is INCOMPLETE until you follow-up with your primary doctor, rotary adjuster and GI doctor.
[2017-02-24 13:00] VITALS: TEMP 98; BMI 25.5
[2017-02-24 13:19] LABS: BASOPHIL 0.9 % (0-2.0); EOSINOPHIL 1.3 % (0-4.5); MCH 27.8 pg (25.7-33.7); MCHC 32.9 g/dl (32.0-35.9); MEAN CELL VOLUME 84.4 fl (80-96); MEAN PLT VOLUME 7.6 fl (7.5-11.1); NEUTROPHILS 70.8 % (42.8-82.8); PLATELET COUNT 377 K/MM3 (134-434); RDW 13.8 % (11.9-15.9); WHITE BLOOD COUNT 4.9 K/mm3 (4.0-10.8)
[2017-02-24 13:34] LABS: INR 1.27 (0.82-1.09); PROTHROMBIN TIME (PATIENT) 14.2 SEC (10.2-13.0)
[2017-02-24 13:40] LABS: CPK(DFH) 182 IU/L (38-174)
[2017-02-24 13:41] LABS: ALBUMIN 3.4 g/dl (3.5-5.0); ALK PHOS 38 U/L (32-92); ANION GAP 8 (8-16); BILIRUBIN,TOTAL 0.7 mg/dl (0.2-1.0); CALCIUM 9.2 mg/dl (8.4-10.2); CO2 23 mmol/L (22-28); GLUCOSE,RANDOM 175 mg/dl (74-106); SGOT/AST 18 U/L (10-42); SGPT/ALT 16 U/L (10-40); TOT PROT 6.2 g/dl (6.4-8.3)
[2017-02-24 13:51] LABS: TROPONIN I (DFP) < 0.03 ng/ml (0.03-0.50)
[2017-02-24 14:25] VITALS: BP 123/72; PULSE 71
[2017-02-24] MEDS ORDERED: SODIUM CHLORIDE IV STA (14:51)
[2017-02-24 15:15] LABS: CK INDEX FOR DOBBS 1.9 % (0.0-5.0)
--- NOTE | 2017-02-25 13:02 | EKG ---
Test Reason : Blood Pressure : / mmHG Vent. Rate : 067 BPM Atrial Rate : 375 BPM P-R Int : 000 ms QRS Dur : 098 ms QT Int : 422 ms P-R-T Axes : 000 053 136 degrees QTc Int : 445 ms ATRIAL FIBRILLATION NONSPECIFIC ST AND T WAVE ABNORMALITY ABNORMAL ECG WHEN COMPARED WITH ECG OF 13-FEB-2017 01:02, ST NO LONGER DEPRESSED IN V6 Confirmed by NENA KAUR MD ([id number]) on 02/25/2017 1:02:07 PM Referred By: TITO LEVY Confirmed By:NENA KAUR MD
== END 2017-02-24 15:04 | disposition home or self-care (01) ==
LOC: FER 12:39
PROC: 3E0337Z Introduction of Electrolytic and Water Balance Substance into Peripheral Vein, Percutaneous Approach (ICD-10-PCS; principal; 2017-02-24)
DX: R53.1 Weakness (principal); I48.91 Unspecified atrial fibrillation; I10 Essential (primary) hypertension; I50.9 Heart failure, unspecified; I25.10 Atherosclerotic heart disease of native coronary artery without angina pectoris; I25.2 Old myocardial infarction; E11.65 Type 2 diabetes mellitus with hyperglycemia; Z79.4 Long term (current) use of insulin
CPT/HCPCS: 36415; 71010-TC; 80053; 82272; 82550; 82553; 84484; 85025; 85610; 86850; 86900; 86901; 93005; 99283-25

== ENCOUNTER 2018-09-03 19:47 | Inpatient (IN) | payer BC, OTHER ==
--- NOTE | 2018-09-03 20:06 | PDOC ---
Rapid Medical Evaluation Chief Complaint: Chest Pain Time Seen by Provider: 09/03/18 20:03 Medical Evaluation: Allergies Allergy/AdvReac Type Severity Reaction Status Date / Time No Known Allergies Allergy Verified 02/24/17 12:44 Vital Signs Temp Pulse Resp BP Pulse Ox 97.9 F 112 H 18 178/138 H 96 09/03/18 19:57 09/03/18 19:57 09/03/18 19:57 09/03/18 19:57 09/03/18 19:57 09/03/18 20:05 I have performed a brief in-person evaluation of this patient. The patient presents with a chief complaint of: Sent by Dr. Harding for evaluation of Rapid Afib. Pt has been off of his meds for 6 months due to insurance issues. Denies chest pain/SOB, asymptomatic now Pertinent physical exam findings: Pt in no apparent distress I have ordered the following: CBC, CMP, cardiac markers, CXR, EKG The patient will proceed to the ED for further evaluation Discharge Disposition - Diagnosis Afib Qualifiers: Atrial fibrillation type: unspecified Qualified Code(s): I48.91 - Unspecified atrial fibrillation - Referrals - Patient Instructions - Post Discharge Activity
[2018-09-03 20:28] LABS: EOS % 0.2 % (0-4.5); HEMATOCRIT 51.3 % (35.4-49); HEMOGLOBIN 16.9 GM/dL (11.7-16.9); LYMPH % 15.8 % (8-40); MCH 27.6 pg (25.7-33.7); MCHC 32.9 g/dl (32.0-35.9); MEAN CELL VOLUME 83.8 fl (80-96); MEAN PLT VOLUME 8.6 fl (7.5-11.1); MONO % 8.7 % (3.8-10.2); NEUT % 74.3 % (42.8-82.8); PLATELET COUNT 267 K/MM3 (134-434); RBC 6.12 M/mm3 (4.00-5.60); RDW 16.3 % (11.9-15.9)
[2018-09-03] MEDS ORDERED: dilTIAZem HCL 50 MG/10 ML - 10 ML VIAL IVPUSH ONE (20:38)
[2018-09-03] MEDS ORDERED: FUROSEMIDE 40 MG/4 ML INJECTABLE VIAL IVPUSH ONE (20:39)
[2018-09-03 20:40] LABS: INR 1.05 (0.83-1.09); PROTHROMBIN TIME (PATIENT) 12.4 SEC (9.7-13.0)
--- NOTE | 2018-09-03 20:44 | PDOC ---
Attending Attestation - HPI HPI: 09/03/18 21:11 The patient is a 68 year old male with a past medical history of anemia, CAD, chronic atrial fibrillation, CHF, diabetes, hypertension, and renal insufficiency who presents to the emergency department sent by PCP for rapid atrial fibrillation and hypertension. The patient reports intermittent episodes of shortness of breath and palpitations at night for several weeks, but denies substernal chest pain. Patient reports he is not compliant with his medications as he states he only took his insulin today. He reports associated symptoms of orthopnea and lower extremity swelling. PCP: Dr. Luis Alberto Harding - Physicial Exam PE: slender 68 yo male in no acute distress head ncat neck supple, no bruits oropharynx no exudates Heart tachycardic. No gallops, murmurs, or rubs. lungs clear to auscultation bilaterally, no rales abd soft,flat Ext (+)b/l lower extremity edema. No clubbing or cyanosis, MAEx4 skin warm and dry,no rashes neuro A&Ox3,no gross focal neuro deficits - Medical Decision Making Documentation prepared by Prabhu Oakley, acting as medical clinic manager for Maxine Lernre MD. <Prabhu Oakley - Last Filed: 09/03/18 21:11> - Resident Resident Name: Sheeba Gordon - ED Attending Attestation I have performed the following: I have examined & evaluated the patient, The case was reviewed & discussed with the resident, I agree w/resident's findings & plan, Exceptions are as noted - HPI HPI: 09/03/18 20:41 68 yo male sent to ER for - Medical Decision Making pt has been noncomplaint with medications and has c/o weeks of intermittent palpitations and some sob presented in afib in rvr,pt responded to cardizem and now his rate is in the 80- 90s trop- 0.12 and needs to be trended,pt does NOT endorse chest pain imp afib /chf w LE admitted by hospitalist 09/03/18 22:03 <Maxine Lerner - Last Filed: 09/03/18 22:08>
[2018-09-03 20:50] LABS: ALBUMIN 2.8 g/dl (3.4-5.0); ALK PHOS 105 U/L (45-117); ANION GAP 9 MMOL/L (8-16); BILIRUBIN,TOTAL 1.3 mg/dL (0.2-1); BLOOD UREA NITROGEN 28 mg/dL (7-18); CALCIUM 9.2 mg/dL (8.5-10.1); CHLORIDE 105 mmol/L (98-107); CO2 28 mmol/L (21-32); CREATININE 2.8 mg/dL (0.55-1.3); GLUCOSE,RANDOM 122 mg/dL (74-106); LIPASE 114 U/L (73-393); MAGNESIUM 2.1 mg/dL (1.8-2.4); PHOSPHOROUS 3.6 mg/dL (2.5-4.9); POTASSIUM 3.8 mmol/L (3.5-5.1); SGOT/AST 32 U/L (15-37); SGPT/ALT 34 U/L (13-61); SODIUM 142 mmol/L (136-145); TOT PROT 6.8 g/dl (6.4-8.2)
[2018-09-03] MEDS ORDERED: FUROSEMIDE 40 MG/4 ML INJECTABLE VIAL ONE (20:54)
[2018-09-03] MEDS ORDERED: dilTIAZem HCL 125 MG/25 ML - 25 ML VIAL ONE (20:55)
--- NOTE | 2018-09-03 20:56 | PDOC ---
History of Present Illness - General Chief Complaint: Chest Pain Stated Complaint: CHEST PAIN Time Seen by Provider: 09/03/18 20:03 History Source: Patient Exam Limitations: No Limitations - History of Present Illness Initial Comments: 09/03/18 20:40 68YOM with h/o A-fib with RVR, IDDM, HTN, HLD, HF (EF 37% 01/2016), CAD s/p [place] (), and anemia who p/w SOB, cough productive of clear and white sputum, and orthopnea for the past 3 months, b/l leg swelling for the past week. He was sent in by his PCP Luis Alberto Harding for rapid A-fib. He explains that the has not had insurance for the past ~6 months and ran out of his medications at that time, and has been unable to take any of his prescribed medications (except he did take his last dose of insulin today). He has been having worsening leg swelling for a week but has not measured his weight at home. He denies any chest pain, abdominal pain, back pain, headache, dizziness/lightheadedness, neck pain, vision changes, or other symptoms. Past History - Past Medical History Allergies/Adverse Reactions: Allergies Allergy/AdvReac Type Severity Reaction Status Date / Time No Known Allergies Allergy Verified 02/24/17 12:44 Home Medications: Ambulatory Orders Apixaban [Eliquis] 2.5 mg PO BID #60 tablet 09/11/18 Aspirin [Aspirin EC] 81 mg PO DAILY #30 tablet. 09/11/18 Carvedilol [Coreg -] 25 mg PO BID #60 tablet 09/11/18 Furosemide [Lasix -] 80 mg PO BID@0600,1400 #60 tablet 09/11/18 Insulin Glargine,Hum.rec.anlog [Lantus (10mL VIAL) -] 12 units SQ DAILY #1 vial 09/11/18 Syring-Needl,Disp,Insul,0.3 ml [Insulin Syringe] 1 each MC DAILY #30 disp.syrin 09/11/18 Anemia: Yes Asthma: No Cardiac Disorders: Yes (CAD; ATRIAL FIBRILLATION) CVA: No COPD: No CHF: Yes DVT: No Dementia: No Diabetes: Yes GI Disorders: No Disorders: Yes (RENAL INSUFFICIENCY) HTN: Yes Liver Disease: No Seizures: No Thyroid Disease: No - Surgical History Cardiac Surgery: Yes (POST ANGIOPLASTY) - Immunization History Immunization Up to Date: Yes - Suicide/Smoking/Psychosocial Hx Smoking History: Never smoked Have you smoked in the past 12 months: No Information on smoking cessation initiated: No Hx Alcohol Use: No Drug/Substance Use Hx: No Substance Use Type: None Hx Substance Use Treatment: No Review of Systems - Review of Systems Able to Perform ROS?: Yes Comments:: 09/03/18 20:56 GEN: no fever, chills, malaise, generalized weakness, or weight change HEENT: no ear pain, sore throat, vision change, or eye pain CV: palpitations, leg edema, no chest pain, lightheadedness, or syncope RESP: cough, SOB, wheezing GI: no abdominal pain, nausea, vomiting, diarrhea, constipation, or white/black/ bloody stool : no dysuria, hematuria, incontinence, retention, bleeding, or discharge MSK: no neck/back pain, muscle weakness/pain, or joint swelling/pain NEURO: no headache, seizure, vertigo, numbness, tingling, or focal weakness PSYCH: no substance use, no behavior change SKIN: no jaundice, no rash ROS otherwise negative except as noted in HPI *Physical Exam - Vital Signs Last Vital Signs Temp Pulse Resp BP Pulse Ox 97.9 F 112 H 18 178/138 H 96 09/03/18 19:57 09/03/18 19:57 09/03/18 19:57 09/03/18 19:57 09/03/18 19:57 - Physical Exam Comments: 09/03/18 20:59 GENERAL: well-appearing, A/Ox4, no distress, answers questions appropriately HEENT: PERRLA, EOMI, moist mucous membranes NECK/BACK: no midline ttp, no spinal stepoff or deformity, no hematoma, full ROM , neck supple CARDIOVASCULAR: irregularly irregular and tachycardic, normal S1S2, no MGR, strong peripheral pulses, capillary refill <2 seconds, extremities wwp, @+ pitting edema BLE LUNGS/RESPIRATORY: no respiratory distress, CTAB, no cough heard GI/ABDOMEN: symmetric [id number], normoactive BS, soft, no ttp, no midline pulsatile masses : no CVA tenderness EXTREMITIES: no muscle atrophy, no acute deformity, edema as noted above SKIN: warm and dry, no pallor, no jaundice, no rash, no bruising, no skin breakdown, no cuts, no lesions NEUROLOGICAL: GCS 15, CN II-XII grossly intact, 5/5 strength proximally and distally, no facial droop Moderate Sedation - Procedure Monitoring Vital Signs: Procedure Monitoring Vital Signs Temperature 97.9 F 09/03/18 19:57 Pulse Rate 112 H 09/03/18 19:57 Respiratory Rate 18 09/03/18 19:57 Blood Pressure 178/138 H 09/03/18 19:57 O2 Sat by Pulse Oximetry (%) 96 09/03/18 19:57 Heart Score/ECG Review #1 09/03/18 19:54 A-fib with RVR rate 126 with normal axis, LVH voltages, TWI in I, II, III, aVF, and lateral precordial leads, no other ST-T changes ED Treatment Course - LABORATORY CBC & Chemistry Diagram: 09/11/18 06:30 09/11/18 06:30 - ADDITIONAL ORDERS Additional order review: 09/03/18 20:16 RBC 6.12 H MCV 83.8 MCHC 32.9 RDW 16.3 H MPV 8.6 Neutrophils % 74.3 Lymphocytes % 15.8 Monocytes % 8.7 Eosinophils % 0.2 Basophils % 1.0 Medical Decision Making - Medical Decision Making 09/03/18 21:03 Adult male Pt p/w A-fib with RVR, SOB, cough, leg edema. Initial Vital Signs Temp Pulse Resp BP Pulse Ox 97.9 F 112 H 18 178/138 H 96 09/03/18 19:57 09/03/18 19:57 09/03/18 19:57 09/03/18 19:57 09/03/18 19:57 Exam: As noted in Physical Exam section. DDX IBNLT: CHF, ACS, demand ischemia, PNA/bronchitis, etc. W/U ordered: Labs as noted below, EKG CXR. TX ordered: Diltiazem EKG: Reviewed; results as noted in ECG Review section. CXR: Nothing acute Laboratory Tests 09/03/18 09/03/18 09/03/18 20:16 20:16 20:16 WBC 6.0 RBC 6.12 H Hgb 16.9 Hct 51.3 H D MCV 83.8 MCH 27.6 MCHC 32.9 RDW 16.3 H Plt Count 267 D MPV 8.6 Absolute Neuts (auto) 4.5 Neutrophils % 74.3 Lymphocytes % 15.8 Monocytes % 8.7 Eosinophils % 0.2 Basophils % 1.0 Nucleated RBC % 0 PT with INR 12.40 INR 1.05 Sodium 142 Potassium 3.8 Chloride 105 Carbon Dioxide 28 Anion Gap 9 BUN 28 H Creatinine 2.8 H Creat Clearance w eGFR 22.65 Random Glucose 122 H Calcium 9.2 Phosphorus 3.6 Magnesium 2.1 Total Bilirubin 1.3 H AST 32 ALT 34 Alkaline Phosphatase 105 Creatine Kinase 429 H Creatine Kinase Index 2.1 CK-MB (CK-2) 9.4 H Troponin I 0.12 H Total Protein 6.8 Albumin 2.8 L Lipase 114 The Pt is unsafe for discharge at this time. They require further hospital observation, workup, and treatment. Patient's PCP is Dr. Harding. Microblog sent to [facility] for admission. Blank Decision to Admit order is placed per ED protocol. 09/03/18 22:04 I spoke with [facility] rep; decision to admit order corrected with Dr. Robles's name. *DC/Admit/Observation/Transfer Diagnosis at time of Disposition: SOB (shortness of breath), Acute kidney injury superimposed on CKD, Troponin I above reference range Afib Qualifiers: Atrial fibrillation type: unspecified Qualified Code(s): I48.91 - Unspecified atrial fibrillation - Discharge Dispostion Condition at time of disposition: Guarded Decision to Admit order: Yes - Prescriptions - Referrals - Patient Instructions - Post Discharge Activity
[2018-09-03] MEDS ORDERED: ASPIRIN 325 MG TABLET PO ONE (21:06)
[2018-09-03] MEDS ORDERED: ASPIRIN 325 MG TABLET ONE (21:56)
[2018-09-03 22:04] LABS: N-TERMINAL BNP 9630.6 pg/ml (5-125)
--- NOTE | 2018-09-03 22:56 | HP ---
CHIEF COMPLAINT: shortness of breath, cough and worsening lower extremity swelling for the past 2 -3 months PCP:Dr. Harding Cardiology: Dr. Cochran Nephrology:Dr. Mireya Nascimento HISTORY OF PRESENT ILLNESS: 68 year old male with history significant of atrial fibrillation on Eliquis for anticoagulation, coronary artery disease with prior [place] and 3 stents to left circumflex, obtuse marginal 1 and 2 at [facility] 01/2016, ejection fraction 37% 01/2016, IDDM, hyperlipidemia, systolic congestive heart failure, chronic renal insufficiency(baseline creatinine range between 1.8-2.4) , and sleep apnea (refuses to wear CPAP at home ) who presents to ER from PCP office with complaints of shortness of breath, productive cough with white sputum and worsening lower extremity swelling for the past 2-3 months. He reports he is able to lie flat at times and denies PND. He denies chest pain, dizziness, palpitations, syncopy, fever, abdominal pain, diarrhea, nausea or vomitting. He reports he has not been taking his medications for the past 6 months due to insurance issues. Upon evaluation in the ER he was ound to be in atrial fibrillation with RVR in the 130's. He received one dosage of IV Cardizem 10 mg and heart rate has improved. He was also hypertensive with SBP >200. Lab findings significant for BNP 9630, troponin 0.12, CK-MB 2.1,creatinine 2.8, albumin 2.8 and total bilirubin 1.3, normal LFT's. EKG with no acute ischemic changes. He received one dosage of IV lasix 40 mg and diuresing. Recent Travel:Denies PAST MEDICAL HISTORY: atrial fibrillation,coronary artery disease with prior DE and 3 stents, IDDM, hyperlipidemia, systolic congestive heart failure, chronic renal insufficiency, sleep apnea(has CPAP at home) PAST SURGICAL HISTORY: Denies Social History: Smoking:Denies Alcohol:Denies Drugs: Denies Family History: Allergies No Known Allergies Allergy (Verified 02/24/17 12:44) HOME MEDICATIONS: Home Medications Medication Instructions Recorded Apixaban [Eliquis] 2.5 mg PO BID 04/15/15 Rosuvastatin [Crestor -] 20 mg PO DAILY #30 tablet 01/26/16 hydrALAZINE HCL [Apresoline -] 25 mg PO BID 07/11/17 Amlodipine Besylate [Norvasc -] 5 mg PO BID 02/24/17 Aspirin [Aspirin EC] 81 mg PO DAILY 02/24/17 Carvedilol [Coreg] 12.5 mg PO BID 02/24/17 Insulin Glargine,Hum.rec.anlog 12 units SQ DAILY 02/24/17 [Lantus (nf)] Omeprazole Magnesium [Prilosec] 10 mg PO DAILY #30 suspdr.pkt 02/24/17 REVIEW OF SYSTEMS CONSTITUTIONAL: Absent:fever, chills, diaphoresis, generalized weakness, malaise, loss of appetite, weight change HEENT: Absent: rhinorrhea, nasal congestion, throat pain, throat swelling, difficulty swallowing, mouth swelling, ear pain, eye pain, visual changes CARDIOVASCULAR: Absent: chest pain, syncope, palpitations, irregular heart rate, lightheadedness , bilater lower extremity edema RESPIRATORY: Absent: cough, shortness of breath, dyspnea with exertion, orthopnea, wheezing, stridor, hemoptysis GASTROINTESTINAL: Absent: abdominal pain, abdominal distension, nausea, vomiting, diarrhea, constipation, melena, hematochezia GENITOURINARY: Absent: dysuria, frequency, urgency, hesitancy, hematuria, flank pain, genital pain MUSCULOSKELETAL: Absent: myalgia, arthralgia, joint swelling, back pain, neck pain SKIN: Absent: rash, itching, pallor, mild jaundice HEMATOLOGIC/IMMUNOLOGIC: Absent: easy bleeding, easy bruising, lymphadenopathy, frequent infections ENDOCRINE: Absent: unexplained weight gain, unexplained weight loss, heat intolerance, cold intolerance NEUROLOGIC: Absent: headache, focal weakness or paresthesias, dizziness, unsteady gait, seizure, mental status changes, bladder or bowel incontinence PSYCHIATRIC: Absent: anxiety, depression, suicidal or homicidal ideation, hallucinations. PHYSICAL EXAMINATION Vital Signs - 24 hr 09/03/18 19:57 Temperature 97.9 F Pulse Rate 112 H Respiratory 18 Rate Blood Pressure 178/138 H O2 Sat by Pulse 96 Oximetry (%) GENERAL: awake, alert, and fully oriented, in no acute distress HEAD: normal with no signs of trauma EYES: pupils equal, round and reactive EARS, NOSE, THROAT: ears normal, nares patent, oropharynx clear without exudates NECK: normal range of motion, supple without lymphadenopathy, JVD, or masses. LUNGS: breath sounds equal, clear to auscultation bilaterally. no wheezes, and no crackles. No accessory muscle use. HEART: irregular rate and rhythm, normal S1 and S2 without murmur, no rebound, no masses MUSCULOSKELETAL: normal range of motion at all joints. No bony deformities or tenderness. No CVA tenderness UPPER EXTREMITIES: 2+ pulses, warm, well-perfused. No cyanosis. No clubbing LOWER EXTREMITIES: 2+ pulses, warm, well-perfused. No calf tenderness. bilateral lower extremity edema NEUROLOGICAL: normal speech. Normal gait PSYCHIATRIC: cooperative. apropriate mood and affect SKIN: warm,dry,normal turgor, no rashes or lesions noted, normal capillary refill Laboratory Results - last 24 hr 09/03/18 09/03/18 09/03/18 20:16 20:16 20:16 WBC 6.0 RBC 6.12 H Hgb 16.9 Hct 51.3 H D MCV 83.8 MCH 27.6 MCHC 32.9 RDW 16.3 H Plt Count 267 D MPV 8.6 Absolute Neuts (auto) 4.5 Neutrophils % 74.3 Lymphocytes % 15.8 Monocytes % 8.7 Eosinophils % 0.2 Basophils % 1.0 Nucleated RBC % 0 PT with INR 12.40 INR 1.05 Sodium 142 Potassium 3.8 Chloride 105 Carbon Dioxide 28 Anion Gap 9 BUN 28 H Creatinine 2.8 H Creat Clearance w eGFR 22.65 Random Glucose 122 H Calcium 9.2 Phosphorus 3.6 Magnesium 2.1 Total Bilirubin 1.3 H AST 32 ALT 34 Alkaline Phosphatase 105 Creatine Kinase 429 H Creatine Kinase Index 2.1 CK-MB (CK-2) 9.4 H Troponin I 0.12 H B-Natriuretic Peptide 9630.6 H Total Protein 6.8 Albumin 2.8 L Lipase 114 Blood Type Antibody Screen 09/03/18 20:16 WBC RBC Hgb Hct MCV MCH MCHC RDW Plt Count MPV Absolute Neuts (auto) Neutrophils % Lymphocytes % Monocytes % Eosinophils % Basophils % Nucleated RBC % PT with INR INR Sodium Potassium Chloride Carbon Dioxide Anion Gap BUN Creatinine Creat Clearance w eGFR Random Glucose Calcium Phosphorus Magnesium Total Bilirubin AST ALT Alkaline Phosphatase Creatine Kinase Creatine Kinase Index CK-MB (CK-2) Troponin I B-Natriuretic Peptide Total Protein Albumin Lipase Blood Type A POSITIVE Antibody Screen Negative ASSESSMENT/PLAN: 68 year old male with past medical history of atrial fibrillation on Eliquis for anticoagulation, coronary artery disease with prior [place] and 3 stents to left circumflex, obtuse marginal 1 and 2 at [facility] 01/2016, systolic congestive heart failure, ischemic cardiomyopathy with EF of 37% (01/2016), chronic renal insufficiency with baseline creatinine ,IDDM, hyperlipidemia, and sleep apnea (refuses to wear CPAP at home ) who presented from PCP office with complaints of shortness of breath, productive cough with white sputum and worsening lower extremity swelling for the past 2-3 months. He was found to be in atrial fibrillation with RVR in setting of medication noncompliance secondary to insurance issues , acute systolic congestive heart failure and acute on chronic renal insufficiency. He is being admitted for an inpatient hospitalization for further medical and cardiac management. Acute Systolic Congestive Heart Failure/Ischemic Cardiomyopathy BNP elevated significantly. He has signs of fluid overload on exam. He denies orthopnea. He has no evidence of hypoxia and currently no tachycardia. He received one dosage of IV lasix 40 mg . Continue to monitor strict I&O's, electrolytes and renal studies closely. Will defer IV diuretics to Cardiology and Nephrology recommendations. Repat BMP in am. Echocardiogram has been ordered to evaluate LV function, and exclude wall motion and valvular abnormalities. Continue with coreg,hydralazine, no al/arb in setting of acute renal insufficiency. Cardiology consult (Dr. Cochran )requested. Atrial Fibrillation Heart rate is better controlled with one dosage of IV Cardizem 10 mg. Continue with coreg 12.5 mg BID for heart rate control. Would consider changing to metoprolol succinate for better heart rate control. Continue with appropriate dosage of Eliquis 2.5 mg twice daily (renal dosed). Pending echo to evaluate ejection fraction. Hypertension Uncontrolled in setting of medication noncompliance. Continue with coreg, amlodipine and hydralazine. Avoid al/arbs. Titrate hydralzaine as needed if remains hypertensive. Coronary Artery Disease Patient denies active anginal symptoms. He has an elevated troponoin of 0.12, Ekg with no acute ST changes. This is likely demand mediated ischemia. Will continue to trend troponins. Continue with baby aspirin and statin therapy. Echocardiogram pending. Hyperlipidemia Continue statin therapy. Acute on Chronic Renal Insufficiency Creatinine is 2.8 (baseline creatinine between 1.8-2.4). Nephrology consult (Dr. Azam Gomes) requested for further evaluation and management. Diabetes Accucheks before meals and at bedtime. Insulin as per sliding scale. Check hemoglobin a1c. Mild Jaundice Lipase and LFT's are normal. He has a mildly elevated bilirubin. He denies use of alcohol. Will check liver US. Albuminia Nutrition consult requested and recommend to add diabetic nutritional supplementation with meals. Sleep Apnea Refuses CPAP at home. FEN Low sodium,ADA diet Follow electrolytes and renal studies closely. DVT Prophylaxsis Bilateral SCD's and continue with systemic anticoagulation. Consulted case management for medication noncompliance secondary due to insurance issues. Further recommendations will be based on patient clinical symptoms and hospitalization course. Visit type - Emergency Visit Emergency Visit: Yes ED Registration Date: 09/03/18 Care time: The patient presented to the Emergency Department on the above date and was hospitalized for further evaluation of their emergent condition. - New Patient This patient is new to me today: Yes Date on this admission: 09/04/18 - Critical Care Critical Care patient: No
[2018-09-04] MEDS ORDERED: INSULIN (LEVEMIR) 100 UNITS/ML UNITS SQ ONE (06:54)
[2018-09-04] MEDS: INSULIN (LEVEMIR) 100 UNITS/ML UNITS SQ SCH (06:55)
[2018-09-04 07:18] LABS: BASO % 1.5 % (0-2.0); EOS % 1.3 % (0-4.5); HEMATOCRIT 47.1 % (35.4-49); HEMOGLOBIN 15.8 GM/dL (11.7-16.9); MCHC 33.5 g/dl (32.0-35.9); MEAN CELL VOLUME 83.6 fl (80-96); MEAN PLT VOLUME 8.7 fl (7.5-11.1); MONO % 13.1 % (3.8-10.2); NEUT % 61.1 % (42.8-82.8); PLATELET COUNT 241 K/MM3 (134-434); RBC 5.63 M/mm3 (4.00-5.60); RDW 15.9 % (11.9-15.9); WHITE BLOOD COUNT 4.8 K/mm3 (4.0-10.0)
[2018-09-04 08:02] LABS: CHOLESTEROL 333 mg/dL (50-200); HDL CHOLESTEROL 48 mg/dL (40-60); MAGNESIUM 2.2 mg/dL (1.8-2.4); TRIGLYCERIDES 136 mg/dL (0-150)
--- NOTE | 2018-09-04 08:53 | PDOC ---
*Physical Exam - Vital Signs Last Vital Signs Temp Pulse Resp BP Pulse Ox 98.5 F 97 H 18 157/133 H 97 09/04/18 06:25 09/04/18 07:25 09/04/18 07:25 09/04/18 07:25 09/04/18 07:25 - Physical Exam Comments: 09/04/18 08:52 Called to patient's bedside by RN. Patient is asymptomatic but the blood pressure has steadily increased. No evidence of end organ damage. Will order antihypertensive medication that is scheduled to be administered at 10 AM to be given at this time. Will reassess. ED Treatment Course - LABORATORY CBC & Chemistry Diagram: 09/04/18 07:03 09/03/18 20:16 - ADDITIONAL ORDERS Additional order review: Laboratory Results 09/03/18 09/03/18 20:16 20:16 Sodium 142 Potassium 3.8 Chloride 105 Carbon Dioxide 28 Anion Gap 9 BUN 28 H Creatinine 2.8 H Creat Clearance w eGFR 22.65 Random Glucose 122 H Calcium 9.2 Phosphorus 3.6 Magnesium 2.1 Total Bilirubin 1.3 H AST 32 ALT 34 Alkaline Phosphatase 105 Creatine Kinase 429 H Creatine Kinase Index 2.1 CK-MB (CK-2) 9.4 H Troponin I 0.12 H B-Natriuretic Peptide 9630.6 H Total Protein 6.8 Albumin 2.8 L Lipase 114 Blood Type A POSITIVE Antibody Screen Negative 09/03/18 20:16 RBC 6.12 H MCV 83.8 MCHC 32.9 RDW 16.3 H MPV 8.6 Neutrophils % 74.3 Lymphocytes % 15.8 Monocytes % 8.7 Eosinophils % 0.2 Basophils % 1.0 - Medications Given in the ED: ED Medications Discontinued Medications Generic Name Dose Route Start Last Admin Trade Name Freq PRN Reason Stop Dose Admin Aspirin 325 mg 09/03/18 21:06 09/03/18 22:11 Asa - PO 09/03/18 21:07 325 mg ONCE ONE Administration Diltiazem HCl 10 mg 09/03/18 20:38 09/03/18 21:02 Cardizem Injection - IVPUSH 09/03/18 20:39 10 mg ONCE ONE Administration Furosemide 20 mg 09/03/18 20:39 09/03/18 21:02 Lasix Injection - IVPUSH 09/03/18 20:40 20 mg ONCE ONE Administration *DC/Admit/Observation/Transfer Diagnosis at time of Disposition: SOB (shortness of breath), Acute kidney injury superimposed on CKD, Troponin I above reference range Afib Qualifiers: Atrial fibrillation type: unspecified Qualified Code(s): I48.91 - Unspecified atrial fibrillation - Discharge Dispostion Condition at time of disposition: Guarded - Referrals - Patient Instructions - Post Discharge Activity
[2018-09-04] MEDS ORDERED: PANTOPRAZOLE 40 MG TABLET (FP) ONE (09:03)
[2018-09-04] MEDS ORDERED: amLODIPine BESYLATE 5 MG TABLET (FP) ONE ×2 (09:04→22:40)
[2018-09-04] MEDS ORDERED: CARVEDILOL 12.5 MG TABLET (FP) ONE ×2 (09:04→22:40)
[2018-09-04] MEDS ORDERED: APIXABAN 5 MG TABLET PO ONE ×2 (09:04→22:40)
[2018-09-04] MEDS ORDERED: hydrALAZINE HCL 25 MG TABLET (FP) ONE ×2 (09:05→22:40)
[2018-09-04] MEDS ORDERED: ASPIRIN COATED 81 MG TABLET.EC ONE (09:05)
[2018-09-04] MEDS: PANTOPRAZOLE 20 MG TABLET (FP) PO SCH (09:30)
[2018-09-04] MEDS: hydrALAZINE HCL 25 MG TABLET (FP) PO SCH ×2 (09:30→22:44)
[2018-09-04] MEDS: amLODIPine BESYLATE 5 MG TABLET (FP) PO SCH ×2 (09:30→22:44)
[2018-09-04] MEDS: ASPIRIN COATED 81 MG TABLET.EC PO SCH (09:30)
[2018-09-04] MEDS ORDERED: APIXABAN 2.5 MG TABLET PO SCH (10:00)
[2018-09-04] MEDS ORDERED: hydrALAZINE HCL 25 MG TABLET (FP) PO SCH (10:00)
[2018-09-04] MEDS ORDERED: CARVEDILOL 12.5 MG TABLET (FP) PO SCH (10:00)
--- NOTE | 2018-09-04 10:06 | CON.CARD ---
Consult Consult Specialty:: Cardiology Referred by:: Medicine Reason for Consultation:: CHF exacerbation - History of Present Illness Chief Complaint: short of breath History of Present Illness: 68M h/o afib on eliquis, CAD s/p [place],3 stents to LCx, OM1 and OM2 2016, chronic systolic HF, DM, HLD, CKD, RUTHANN p/w dyspnea, cough, edema for 2-[address] Cochran for cardio. In the ER was in afib with RVR 130s, HR improved with IV cardizem 10 mg x 1, also BP >200 systolic in ER, improved. Received IV lasix , sob improving. Has not taken meds for at least a year due to insurance reasons, slowly has become more short of breath and now gets winded with talking , also edema has been worsening, complains of orthopnea as well. - Past Medical History Cardio/Vascular: Yes: AFIB, CAD (stent x3), HTN, Hyperlipdemia Pulmonary: Yes: Sleep Apnea Renal/: Yes: Renal Inusuff - Alcohol/Substance Use Hx Alcohol Use: No - Smoking History Smoking history: Never smoked Have you smoked in the past 12 months: No Home Medications - Allergies Allergies/Adverse Reactions: Allergies Allergy/AdvReac Type Severity Reaction Status Date / Time No Known Allergies Allergy Verified 02/24/17 12:44 - Home Medications Home Medications: Ambulatory Orders Apixaban [Eliquis] 2.5 mg PO BID 04/15/15 Rosuvastatin [Crestor -] 20 mg PO DAILY #30 tablet 01/26/16 hydrALAZINE HCL [Apresoline -] 25 mg PO BID 02/13/17 Amlodipine Besylate [Norvasc -] 5 mg PO BID 02/24/17 Aspirin [Aspirin EC] 81 mg PO DAILY 02/24/17 Carvedilol [Coreg] 12.5 mg PO BID 02/24/17 Insulin Glargine,Hum.rec.anlog [Lantus (nf)] 12 units SQ DAILY 02/24/17 Omeprazole Magnesium [Prilosec] 10 mg PO DAILY #30 suspdr.pkt 02/24/17 Family Disease History - Family Disease History Family History: Unremarkable Review of Systems - Review of Systems Constitutional: reports: No Symptoms Eyes: reports: No Symptoms HENT: reports: No Symptoms Neck: reports: No Symptoms Cardiovascular: reports: No Symptoms Respiratory: reports: No Symptoms Gastrointestinal: reports: No Symptoms Genitourinary: reports: No Symptoms Musculoskeletal: reports: No Symptoms Integumentary: reports: No Symptoms Neurological: reports: No Symptoms Endocrine: reports: No Symptoms Hematology/Lymphatic: reports: No Symptoms Psychiatric: reports: No Symptoms Vital Signs: Vital Signs Temperature 98.5 F 09/04/18 06:25 Pulse Rate 92 H 09/04/18 08:50 Respiratory Rate 20 09/04/18 08:50 Blood Pressure 162/116 H 09/04/18 08:50 O2 Sat by Pulse Oximetry (%) 99 09/04/18 08:50 Constitutional: Yes: No Distress, Calm Eyes: Yes: Conjunctiva Clear, EOM Intact HENT: Yes: Atraumatic, Normocephalic Neck: Yes: Supple, Trachea Midline Respiratory: Yes: Regular, CTA Bilaterally Gastrointestinal: Yes: Normal Bowel Sounds, Soft Cardiovascular: Yes: Regular Rate and Rhythm JVD: Yes Carotid Bruit: No PMI: Non-Displaced Heart Sounds: Yes: S1, S2 Extremities: No: Cold Edema: Yes Edema: LLE: 2+, RLE: 2+ Peripheral Pulses WNL: Yes Peripheral Pulses: 2+ Left Doralis Pedis, 2+ Right Dorsalis Pedis Integumentary: No: Jaundice Neurological: Yes: Alert, Oriented Psychiatric: No: Agitated - Other Data Labs, Other Data: CBC, BMP 09/04/18 07:03 09/03/18 20:16 INR, PTT INR 1.05 (0.83-1.09) 09/03/18 20:16 Troponin, BNP 09/03/18 09/03/18 09/04/18 20:16 23:36 07:03 Troponin I 0.12 H 0.18 H 0.26 H B-Natriuretic Peptide 9630.6 H Troponin, BNP 09/03/18 09/03/18 09/04/18 20:16 23:36 07:03 Troponin I 0.12 H 0.18 H 0.26 H B-Natriuretic Peptide 9630.6 H Assessment/Plan EKG: afib, LVH with repol abnormality CXR: mild congestion tele: afib 90s-100s, occ RVR Acute on chronic systolic HF - has not taken meds in over a year - BNP >9000 - echo pending - cont coreg, hydralazine; no BRUCE/ARB in setting of CKD - received IV lasix - start lasix 40 mg IV BID, trend Cr, lytes, daily standing weights Afib - received IV diltiazem 10 mg x 1, rate improved - cont eliquis, coreg - reportedly was on eliquis 2.5 mg BID at home, has Cr > 1.5 but does not meet other criteria for low dose - increase eliquis to 5 mg BID - increase coreg to 25 mg BID for improved rate control Elevated trop - indeterminate range, flat trend, EKG no ischemic changes, less likely ACS - likely demand ischemia in setting of CHF exac HTN - not compliant with meds at home - cont coreg, amlodipine, hydralazine, monitor BP HLD -LDL 264, total cholesterol 363 - was not taking statin as prescribed -restart rosuvastatin CAD - cont aspirin, statin DEVORAH on CKD - nephrology consulted - baseline 1.8-2.4 DM - manage per primary RUTHANN - refusing CPAP
--- NOTE | 2018-09-04 11:11 | PN ---
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 Pt examined in ER Sitting in bed, no SOB he admits he ran out of his meds for about a year due to insurance issues Vital Signs - 24 hr 09/03/18 09/03/18 09/04/18 19:57 23:18 01:57 Temperature 97.9 F 98.5 F 98.5 F Pulse Rate 112 H Pulse Rate [ 89 89 Right Radial] Respiratory 18 19 19 Rate Blood Pressure 178/138 H Blood Pressure 146/78 159/88 [Left Arm] O2 Sat by Pulse 96 98 99 Oximetry (%) 09/04/18 09/04/18 09/04/18 06:25 07:25 08:50 Temperature 98.5 F Pulse Rate Pulse Rate [ 99 H 97 H 92 H Right Radial] Respiratory 19 18 20 Rate Blood Pressure Blood Pressure 170/119 H 157/133 H 162/116 H [Left Arm] O2 Sat by Pulse 98 97 99 Oximetry (%) 09/04/18 13:12 Temperature 98.4 F Pulse Rate Pulse Rate [ 87 Right Radial] Respiratory 18 Rate Blood Pressure Blood Pressure 139/106 H [Left Arm] O2 Sat by Pulse 97 Oximetry (%) Current Medications Generic Name Dose Route Start Last Admin Trade Name Freq PRN Reason Stop Dose Admin Amlodipine Besylate 5 mg 09/04/18 10:00 09/04/18 09:30 Norvasc - PO 5 mg BID ANJALI Administration Apixaban 5 mg 09/04/18 11:10 Eliquis - PO BID ANJALI Aspirin 81 mg 09/04/18 10:00 09/04/18 09:30 Ecotrin - PO 81 mg DAILY ANJALI Administration Carvedilol 25 mg 09/04/18 11:06 Coreg - PO BID ANJALI Furosemide 40 mg 09/04/18 14:00 09/04/18 14:05 Lasix Injection - IVPUSH 40 mg BID@0600,1400 ANJALI Administration Hydralazine HCl 25 mg 09/04/18 10:00 09/04/18 09:30 Apresoline - PO 25 mg BID ANJALI Administration Insulin Detemir 12 units 09/04/18 07:00 09/04/18 06:55 Levemir Vial SQ 12 unit DAILY@0700 ANJALI Administration Pantoprazole Sodium 20 mg 09/04/18 10:00 09/04/18 09:30 Protonix - PO 20 mg DAILY ANJALI Administration Rosuvastatin Calcium 20 mg 09/04/18 22:00 Crestor - PO HS [facility] Laboratory Results - last 24 hr 09/03/18 09/03/18 09/03/18 20:16 20:16 20:16 WBC 6.0 RBC 6.12 H Hgb 16.9 Hct 51.3 H D MCV 83.8 MCH 27.6 MCHC 32.9 RDW 16.3 H Plt Count 267 D MPV 8.6 Absolute Neuts (auto) 4.5 Neutrophils % 74.3 Lymphocytes % 15.8 Monocytes % 8.7 Eosinophils % 0.2 Basophils % 1.0 Nucleated RBC % 0 PT with INR 12.40 INR 1.05 Sodium 142 Potassium 3.8 Chloride 105 Carbon Dioxide 28 Anion Gap 9 BUN 28 H Creatinine 2.8 H Creat Clearance w eGFR 22.65 POC Glucometer Random Glucose 122 H Hemoglobin A1c % Calcium 9.2 Phosphorus 3.6 Magnesium 2.1 Total Bilirubin 1.3 H AST 32 ALT 34 Alkaline Phosphatase 105 Creatine Kinase 429 H Creatine Kinase Index 2.1 CK-MB (CK-2) 9.4 H Troponin I 0.12 H B-Natriuretic Peptide 9630.6 H Total Protein 6.8 Albumin 2.8 L Triglycerides Cholesterol Total LDL Cholesterol HDL Cholesterol Lipase 114 Blood Type Antibody Screen 09/03/18 09/03/18 09/04/18 20:16 23:36 06:49 WBC RBC Hgb Hct MCV MCH MCHC RDW Plt Count MPV Absolute Neuts (auto) Neutrophils % Lymphocytes % Monocytes % Eosinophils % Basophils % Nucleated RBC % PT with INR INR Sodium Potassium Chloride Carbon Dioxide Anion Gap BUN Creatinine Creat Clearance w eGFR POC Glucometer 107.68340 Random Glucose Hemoglobin A1c % Calcium Phosphorus Magnesium Total Bilirubin AST ALT Alkaline Phosphatase Creatine Kinase Creatine Kinase Index CK-MB (CK-2) Troponin I 0.18 H B-Natriuretic Peptide Total Protein Albumin Triglycerides Cholesterol Total LDL Cholesterol HDL Cholesterol Lipase Blood Type A POSITIVE Antibody Screen Negative 09/04/18 09/04/18 09/04/18 07:03 07:03 07:03 WBC 4.8 RBC 5.63 H Hgb 15.8 Hct 47.1 MCV 83.6 MCH 28.0 MCHC 33.5 RDW 15.9 Plt Count 241 MPV 8.7 Absolute Neuts (auto) 2.9 Neutrophils % 61.1 Lymphocytes % 23.0 D Monocytes % 13.1 H Eosinophils % 1.3 D Basophils % 1.5 Nucleated RBC % 0 PT with INR INR Sodium 146 H Potassium 4.0 Chloride 107 Carbon Dioxide 29 Anion Gap 10 BUN 29 H Creatinine 2.7 H Creat Clearance w eGFR 23.62 POC Glucometer Random Glucose 112 H Hemoglobin A1c % 8.0 H Calcium 9.2 Phosphorus Magnesium 2.2 Total Bilirubin AST ALT Alkaline Phosphatase Creatine Kinase Creatine Kinase Index CK-MB (CK-2) Troponin I 0.26 H B-Natriuretic Peptide Total Protein Albumin Triglycerides 136 Cholesterol 333 H Total LDL Cholesterol 264 H HDL Cholesterol 48 Lipase Blood Type Antibody Screen S1 S2 Irregular Lungs decreased breath sounds B/L abd- soft, NT edema++ PLAN Lasix BID monitor renal function Baseline around 1.9-2 Hold off ACEI /ARB for now restarted statins and Eliquis Trend cardiac enzymes Cardiology and Renal consults appreciated Problem List - Problems (1) Acute kidney injury superimposed on CKD Code(s): N17.9 - ACUTE KIDNEY FAILURE, UNSPECIFIED; N18.9 - CHRONIC KIDNEY DISEASE, UNSPECIFIED (2) Afib Code(s): I48.91 - UNSPECIFIED ATRIAL FIBRILLATION Qualifiers: Atrial fibrillation type: unspecified Qualified Code(s): I48.91 - Unspecified atrial fibrillation (3) Shortness of breath Code(s): R06.02 - SHORTNESS OF BREATH (4) Diabetes mellitus, insulin dependent (IDDM), uncontrolled Code(s): E10.65 - TYPE 1 DIABETES MELLITUS WITH HYPERGLYCEMIA (5) HTN (hypertension) Code(s): I10 - ESSENTIAL (PRIMARY) HYPERTENSION Qualifiers: Hypertension type: renovascular hypertension Qualified Code(s): I15.0 - Renovascular hypertension (6) Systolic CHF, acute on chronic Code(s): I50.23 - ACUTE ON CHRONIC SYSTOLIC (CONGESTIVE) HEART FAILURE
--- NOTE | 2018-09-04 11:33 | ECHO ---
Name: TOMMIE KIM Exam:Adult Echocardiogram Study Date: 09/04/2018 09:29 AM Age: 68 yrs Reason For Study: FLUID OVERLOAD Height: 67 in Weight: 160 lb BSA: 1.8 m2 MMode/2D Measurements & Calculations IVSd: 1.1 cm Ao root diam: 3.2 cm LVIDd: 5.3 cm LA dimension: 4.4 cm LVIDs: 4.6 cm LVPWd: 0.99 cm EDV(Teich): 134.0 ml TAPSE: 1.8 cm ESV(Teich): 98.2 ml Doppler Measurements & Calculations MV E max rob: 115.0 cm/sec Ao V2 max: 170.5 cm/sec MV A max rob: 42.0 cm/sec Ao max P.6 mmHg MV E/A: 2.7 Ao V2 mean: 115.2 cm/sec MV dec time: 0.14 sec Ao mean P.0 mmHg Ao V2 VTI: 40.6 cm LV V1 max P.2 mmHg MR max rob: 565.5 cm/sec LV V1 max: 73.6 cm/sec MR max P.3 mmHg TR max rob: 350.5 cm/sec Med Peak E' Rob: 4.0 cm/sec TR max P.5 mmHg Med E/e': 28.9 Lat Peak E' Rob: 7.4 cm/sec Lat E/e': 15.5 Procedure A two-dimensional transthoracic echocardiogram with color flow and Doppler was performed. Left Ventricle The left ventricle is grossly normal size. Left ventricular systolic function is severely reduced. Th e transmitral spectral Doppler flow pattern is suggestive of restrictive physiology. There is severe gl obal hypokinesis of the left ventricle. Regional wall motion abnormalities cannot be excluded due to limit ed visualization. Atria The left atrium is mildly dilated. The right atrium is mildly dilated. 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 Mitral Valve There is moderate mitral valve thickening. There is no mitral valve stenosis. There is severe mitral regurgitation. Tricuspid Valve There is mild tricuspid valve thickening. There is no tricuspid stenosis. There is severe tricuspid regurgitation. Right ventricular systolic pressure is elevated at 40-50mmHg. Aortic Valve The aortic valve is not well visualized. No hemodynamically significant valvular aortic stenosis. No aortic regurgitation is present. Pulmonic Valve The pulmonic valve is not well visualized. There is no pulmonic valvular stenosis. Trace pulmonic raymond vular regurgitation. Great Vessels The aortic root is normal size. Pericardium/Pleura There is no pericardial effusion. Interpretation Summary The left ventricle is grossly normal size. The left atrium is mildly dilated. The right atrium is mildly dilated. There is moderate mitral valve thickening. There is severe mitral regurgitation. There is severe tricuspid regurgitation. Right ventricular systolic pressure is elevated at 40-50mmHg. There is severe global hypokinesis of the left ventricle. Regional wall motion abnormalities cannot be excluded due to limited visualization. Left ventricular systolic function is severely reduced. The aortic valve is not well visualized. The transmitral spectral Doppler flow pattern is suggestive of restrictive physiology. The atrial septum is aneurysmal. MD Olegario Gonzales 09/04/2018 11:33 AM
--- NOTE | 2018-09-04 11:45 | CONSULT ---
Consult - text type - Consultation Consultation Note: Renal consult for DEVORAH on CKD This is a 68 year old gentleman with hx of Afib on Eilquis, CAD s/p PCI, CHF, HTN, DM, Sleep Apnea who presented with increasing sob and leg swelling and to have DEVORAH on CKD in setting of fluid overload. Pt reports being off meds for x 1 year because of insurance reasons. Denies any CP, Abd pain, fever, chills, N/V/D. Appetite is good. No NSAID use, recent contrast exposure, recent Abx use. Making urine, no symptoms of obstruction. S/p IV lasix in the ED with improvement in symptoms. PMhx: as above Allergies: NKDA Family hx: NC Social hx: No T/A/D ROS: as per HPI, all other pertinent ros negative Home Medications Medication Instructions Recorded Apixaban [Eliquis] 2.5 mg PO BID 04/15/15 Rosuvastatin [Crestor -] 20 mg PO DAILY #30 tablet 01/26/16 hydrALAZINE HCL [Apresoline -] 25 mg PO BID 02/13/17 Amlodipine Besylate [Norvasc -] 5 mg PO BID 02/24/17 Aspirin [Aspirin EC] 81 mg PO DAILY 02/24/17 Carvedilol [Coreg] 12.5 mg PO BID 02/24/17 Insulin Glargine,Hum.rec.anlog 12 units SQ DAILY 02/24/17 [Lantus (nf)] Omeprazole Magnesium [Prilosec] 10 mg PO DAILY #30 suspdr.pkt 02/24/17 Vital Signs Temperature 98.5 F 09/04/18 06:25 Pulse Rate 92 H 09/04/18 08:50 Respiratory Rate 20 09/04/18 08:50 Blood Pressure 162/116 H 09/04/18 08:50 O2 Sat by Pulse Oximetry (%) 99 09/04/18 08:50 NAD awake and alert neck supple, no JVD RRR, no M/R CTA, no rales soft NT/ND, no rebound or guarding ++ edema in LE, no cyanosis or clubbing no bladder distension CBC, BMP 09/04/18 07:03 CBC, BMP 09/04/18 07:03 Current Medications Amlodipine Besylate (Norvasc -) 5 mg PO BID ANJALI Last Admin: 09/04/18 09:30 Dose: 5 mg Apixaban (Eliquis -) 5 mg PO BID [facility] OF [facility] Aspirin (Ecotrin -) 81 mg PO DAILY [facility] Last Admin: 09/04/18 09:30 Dose: 81 mg Carvedilol (Coreg -) 25 mg PO BID ON [facility] OF [facility] Furosemide (Lasix Injection -) 40 mg IVPUSH BID@0600,1400 ON [facility] OF [facility] Hydralazine HCl (Apresoline -) 25 mg PO BID [facility] Last Admin: 09/04/18 09:30 Dose: 25 mg Insulin Detemir (Levemir Vial) 12 units SQ DAILY@0700 [facility] Last Admin: 09/04/18 06:55 Dose: 12 unit Pantoprazole Sodium (Protonix -) 20 mg PO DAILY [facility] Last Admin: 09/04/18 09:30 Dose: 20 mg Rosuvastatin Calcium (Crestor -) 20 mg PO HS ON [facility] OF [facility] 68 year old gentleman with hx of Afib on Eilquis, CAD s/p PCI, CHF, HTN, DM, Sleep Apnea who presented with increasing sob and leg swelling and to have DEVORAH on CKD in setting of fluid overload #DEVORAH on CKD in setting of fluid overload r/o Cardio-renal syndrome vs. obstruction. vs progressive CKD #CHF exacerbation #Hypertension #Dm on insulin #Elevated liver enzymes Check urine studies for FeUrea, UPCR Check full renal US to r/o obstruction agree with continued IV lasix BID would withhold any BRUCE/ARB at this time Avoid NSAIDs, IV Contrast salt restricted diet trend daily weights Trend renal function and electrolytes Thank you will follow Eric Greenfield DO
[2018-09-04 11:58] LABS: ANION GAP 10 MMOL/L (8-16); BLOOD UREA NITROGEN 29 mg/dL (7-18); CALCIUM 9.2 mg/dL (8.5-10.1); CHLORIDE 107 mmol/L (98-107); CO2 29 mmol/L (21-32); CREATININE 2.7 mg/dL (0.55-1.3); GLUCOSE,RANDOM 112 mg/dL (74-106); SODIUM 146 mmol/L (136-145)
[2018-09-04] MEDS: FUROSEMIDE 40 MG/4 ML INJECTABLE VIAL IVPUSH SCH (14:05)
[2018-09-04] MEDS ORDERED: FUROSEMIDE 40 MG/4 ML INJECTABLE VIAL ONE (14:08)
--- NOTE | 2018-09-04 14:57 | EKG ---
Test Reason : Blood Pressure : / mmHG Vent. Rate : 098 BPM Atrial Rate : 394 BPM P-R Int : 000 ms QRS Dur : 098 ms QT Int : 370 ms P-R-T Axes : 000 059 198 degrees QTc Int : 472 ms ATRIAL FLUTTER WITH VARIABLE A-V BLOCK LEFT VENTRICULAR HYPERTROPHY WITH REPOLARIZATION ABNORMALITY CANNOT RULE OUT SEPTAL INFARCT , AGE UNDETERMINED ABNORMAL ECG WHEN COMPARED WITH ECG OF 03-SEP-2018 19:54, ATRIAL FLUTTER HAS REPLACED ATRIAL FIBRILLATION T WAVE INVERSION NOW EVIDENT IN ANTERIOR LEADS Confirmed by ZENAIDA BENNETT, SHIVANI ([id number]) on 09/04/2018 2:57:23 PM Referred By: Confirmed By:SHIVANI ESTEVEZ MD
[2018-09-04] MEDS: ROSUVASTATIN CA 20 MG TABLET (FP) PO SCH ×2 (22:44→23:54)
[2018-09-04] MEDS: APIXABAN 5 MG TABLET PO SCH (22:44)
[2018-09-04] MEDS: CARVEDILOL 25 MG TABLET (FP) PO SCH (22:44)
[2018-09-05] MEDS: FUROSEMIDE 40 MG/4 ML INJECTABLE VIAL IVPUSH SCH ×2 (05:30→13:50)
[2018-09-05] MEDS: INSULIN (LEVEMIR) 100 UNITS/ML UNITS SQ SCH (06:07)
[2018-09-05 07:09] LABS: BASO % 3.5 % (0-2.0); HEMOGLOBIN 14.9 GM/dL (11.7-16.9); LYMPH % 23.5 % (8-40); MCH 27.8 pg (25.7-33.7); MCHC 33.1 g/dl (32.0-35.9); MEAN PLT VOLUME 8.9 fl (7.5-11.1); MONO % 12.1 % (3.8-10.2); NEUT % 57.9 % (42.8-82.8); PLATELET COUNT 221 K/MM3 (134-434); RBC 5.36 M/mm3 (4.00-5.60); RDW 16.7 % (11.9-15.9); WHITE BLOOD COUNT 3.6 K/mm3 (4.0-10.0)
[2018-09-05 07:35] LABS: ALBUMIN 2.4 g/dl (3.4-5.0); ALK PHOS 88 U/L (45-117); ANION GAP 4 MMOL/L (8-16); BILIRUBIN,TOTAL 0.9 mg/dL (0.2-1); BLOOD UREA NITROGEN 27 mg/dL (7-18); CALCIUM 8.6 mg/dL (8.5-10.1); CHLORIDE 105 mmol/L (98-107); CO2 33 mmol/L (21-32); CREATININE 2.6 mg/dL (0.55-1.3); GLUCOSE,RANDOM 91 mg/dL (74-106); MAGNESIUM 2.2 mg/dL (1.8-2.4); PHOSPHOROUS 3.7 mg/dL (2.5-4.9); POTASSIUM 4.3 mmol/L (3.5-5.1); SGOT/AST 31 U/L (15-37); SGPT/ALT 31 U/L (13-61); SODIUM 142 mmol/L (136-145); TOT PROT 6.2 g/dl (6.4-8.2)
[2018-09-05] MEDS: APIXABAN 5 MG TABLET PO SCH ×2 (10:12→21:19)
[2018-09-05] MEDS: PANTOPRAZOLE 20 MG TABLET (FP) PO SCH (10:12)
[2018-09-05] MEDS: hydrALAZINE HCL 25 MG TABLET (FP) PO SCH ×2 (10:12→21:20)
[2018-09-05] MEDS: amLODIPine BESYLATE 5 MG TABLET (FP) PO SCH ×2 (10:12→21:19)
[2018-09-05] MEDS: ASPIRIN COATED 81 MG TABLET.EC PO SCH (10:12)
[2018-09-05] MEDS: CARVEDILOL 25 MG TABLET (FP) PO SCH ×2 (10:12→21:19)
--- NOTE | 2018-09-05 10:25 | PN ---
Progress Note (short form) - Note Progress Note: s: sob better, le edema improving. no cp palps dizzy o: Vital Signs Period Temp Pulse Resp BP Sys/Beckford Pulse Ox Last 24 Hr 97.3 F-98.4 F 63-87 18-18 139-156/73-106 97-100 Constitutional: Yes: No Distress, Calm Eyes: Yes: Conjunctiva Clear, Neck: Yes: Supple, Trachea Midline Respiratory: Yes: Regular, CTA Bilaterally Gastrointestinal: Yes: Normal Bowel Sounds, Soft Cardiovascular: Yes: Regular Rate and Rhythm JVD: Yes Heart Sounds: Yes: S1, S2 Extremities: No: Cold Edema: Yes Edema: LLE: 2+, RLE: 2+ Peripheral Pulses WNL: Yes Peripheral Pulses: 2+ Left Doralis Pedis, 2+ Right Dorsalis Pedis Integumentary: No: Jaundice Neurological: Yes: Alert, Oriented Psychiatric: No: Agitated Current Medications Generic Name Dose Route Start Last Admin Trade Name Freq PRN Reason Stop Dose Admin Amlodipine Besylate 5 mg 09/04/18 10:00 09/05/18 10:12 Norvasc - PO 5 mg BID ANJALI Administration Apixaban 5 mg 09/04/18 11:10 09/05/18 10:12 Eliquis - PO 5 mg BID ANJALI Administration Aspirin 81 mg 09/04/18 10:00 09/05/18 10:12 Ecotrin - PO 81 mg DAILY ANJALI Administration Carvedilol 25 mg 09/04/18 11:06 09/05/18 10:12 Coreg - PO 25 mg BID ANJALI Administration Furosemide 40 mg 09/04/18 14:00 09/05/18 05:30 Lasix Injection - IVPUSH 40 mg BID@0600,1400 ANJALI Administration Hydralazine HCl 25 mg 09/04/18 10:00 09/05/18 10:12 Apresoline - PO 25 mg BID ANJALI Administration Insulin Detemir 12 units 09/04/18 07:00 09/05/18 06:07 Levemir Vial SQ Not Given DAILY@0700 ANJALI Pantoprazole Sodium 20 mg 09/04/18 10:00 09/05/18 10:12 Protonix - PO 20 mg DAILY ANJALI Administration Rosuvastatin Calcium 20 mg 09/04/18 22:00 09/04/18 23:54 Crestor - PO 20 mg HS ANJALI Administration CBC, BMP 09/05/18 06:00 09/05/18 06:00 Assessment/Plan EKG: afib, LVH with repol abnormality CXR: mild congestion tele: afib, rate ok. nsvt 6 beats echo 08/2018: sev dec lvef, global hk, rv tds, mary, IASA, sev mr/tr, rvsp 40-50 Acute on chronic systolic HF - has not taken meds in over a year - BNP >9000 - cont coreg, hydralazine; no BRUCE/ARB in setting of CKD - received IV lasix, improving, cont same - cont lasix 40 mg IV BID, trend Cr, lytes, daily standing weights Afib - rate ok on coreg - cont eliquis Elevated trop - indeterminate range, flat trend, EKG no ischemic changes, less likely ACS - likely demand ischemia in setting of CHF exac HTN - not compliant with meds at home - cont coreg, amlodipine, hydralazine, monitor BP HLD -LDL 264, total cholesterol 363 - was not taking statin as prescribed -restart rosuvastatin CAD - cont aspirin, statin DEVORAH on CKD - nephrology consulted - baseline 1.8-2.4 DM - manage per primary RUTHANN - refusing CPAP
--- NOTE | 2018-09-05 13:51 | PN ---
Progress Note (short form) - Note Progress Note: no distress feels well Vital Signs - 24 hr 09/04/18 09/04/18 09/04/18 17:56 22:30 22:45 Temperature 97.9 F Pulse Rate Pulse Rate [ 63 86 Right Radial] Respiratory 18 18 Rate Blood Pressure Blood Pressure 149/89 148/96 [Left Arm] O2 Sat by Pulse 99 98 98 Oximetry (%) 09/04/18 09/05/18 09/05/18 23:30 02:13 06:00 Temperature 97.3 F L 97.3 F L 97.6 F Pulse Rate 76 72 82 Pulse Rate [ Right Radial] Respiratory 18 18 18 Rate Blood Pressure 156/99 156/85 148/73 Blood Pressure [Left Arm] O2 Sat by Pulse 100 Oximetry (%) 09/05/18 09/05/18 09:00 09:20 Temperature 97.6 F Pulse Rate 64 Pulse Rate [ Right Radial] Respiratory 18 18 Rate Blood Pressure 158/95 Blood Pressure [Left Arm] O2 Sat by Pulse 100 Oximetry (%) Current Medications Generic Name Dose Route Start Last Admin Trade Name Freq PRN Reason Stop Dose Admin Amlodipine Besylate 5 mg 09/04/18 10:00 09/05/18 10:12 Norvasc - PO 5 mg BID ANJALI Administration Apixaban 5 mg 09/04/18 11:10 09/05/18 10:12 Eliquis - PO 5 mg BID ANJALI Administration Aspirin 81 mg 09/04/18 10:00 09/05/18 10:12 Ecotrin - PO 81 mg DAILY ANJLAI Administration Carvedilol 25 mg 09/04/18 11:06 09/05/18 10:12 Coreg - PO 25 mg BID ANJALI Administration Furosemide 40 mg 09/04/18 14:00 09/05/18 05:30 Lasix Injection - IVPUSH 40 mg BID@0600,1400 ANJALI Administration Hydralazine HCl 25 mg 09/04/18 10:00 09/05/18 10:12 Apresoline - PO 25 mg BID ANJALI Administration Insulin Detemir 12 units 09/04/18 07:00 09/05/18 06:07 Levemir Vial SQ Not Given DAILY@0700 [facility] Pantoprazole Sodium 20 mg 09/04/18 10:00 09/05/18 10:12 Protonix - PO 20 mg DAILY ANJALI Administration Rosuvastatin Calcium 20 mg 09/04/18 22:00 09/04/18 23:54 Crestor - PO 20 mg HS ANJALI Administration Laboratory Results - last 24 hr 09/05/18 09/05/18 09/05/18 02:15 02:15 02:15 WBC RBC Hgb Hct MCV MCH MCHC RDW Plt Count MPV Absolute Neuts (auto) Neutrophils % Lymphocytes % Monocytes % Eosinophils % Basophils % Nucleated RBC % Sodium Potassium Chloride Carbon Dioxide Anion Gap BUN Creatinine Creat Clearance w eGFR POC Glucometer Random Glucose Calcium Phosphorus Magnesium Total Bilirubin AST ALT Alkaline Phosphatase Total Protein Albumin U Random Total Protein 541.6 H Ur Random Urea Nitrogn 607 Urine Creatinine 129.0 09/05/18 09/05/18 09/05/18 05:20 06:00 06:00 WBC 3.6 L RBC 5.36 Hgb 14.9 Hct 45.0 MCV 84.0 MCH 27.8 MCHC 33.1 RDW 16.7 H Plt Count 221 MPV 8.9 Absolute Neuts (auto) 2.1 Neutrophils % 57.9 Lymphocytes % 23.5 Monocytes % 12.1 H Eosinophils % 3.0 D Basophils % 3.5 H Nucleated RBC % 0 Sodium 142 Potassium 4.3 Chloride 105 Carbon Dioxide 33 H Anion Gap 4 L BUN 27 H Creatinine 2.6 H Creat Clearance w eGFR 24.67 POC Glucometer 74 Random Glucose 91 Calcium 8.6 Phosphorus 3.7 Magnesium 2.2 Total Bilirubin 0.9 AST 31 ALT 31 Alkaline Phosphatase 88 Total Protein 6.2 L Albumin 2.4 L U Random Total Protein Ur Random Urea Nitrogn Urine Creatinine 09/05/18 11:51 WBC RBC Hgb Hct MCV MCH MCHC RDW Plt Count MPV Absolute Neuts (auto) Neutrophils % Lymphocytes % Monocytes % Eosinophils % Basophils % Nucleated RBC % Sodium Potassium Chloride Carbon Dioxide Anion Gap BUN Creatinine Creat Clearance w eGFR POC Glucometer 107 Random Glucose Calcium Phosphorus Magnesium Total Bilirubin AST ALT Alkaline Phosphatase Total Protein Albumin U Random Total Protein Ur Random Urea Nitrogn Urine Creatinine S1 S2 Irregular Lungs decreased breath sounds B/L abd- soft, NT edema++ decreased PLAN Lasix BID monitor renal function Baseline around 1.9-2 Hold off ACEI /ARB for now restarted statins and Eliquis Problem List - Problems (1) Acute kidney injury superimposed on CKD Code(s): N17.9 - ACUTE KIDNEY FAILURE, UNSPECIFIED; N18.9 - CHRONIC KIDNEY DISEASE, UNSPECIFIED (2) Afib Code(s): I48.91 - UNSPECIFIED ATRIAL FIBRILLATION Qualifiers: Atrial fibrillation type: unspecified Qualified Code(s): I48.91 - Unspecified atrial fibrillation (3) Shortness of breath Code(s): R06.02 - SHORTNESS OF BREATH (4) Diabetes mellitus, insulin dependent (IDDM), uncontrolled Code(s): E10.65 - TYPE 1 DIABETES MELLITUS WITH HYPERGLYCEMIA (5) HTN (hypertension) Code(s): I10 - ESSENTIAL (PRIMARY) HYPERTENSION Qualifiers: Hypertension type: renovascular hypertension Qualified Code(s): I15.0 - Renovascular hypertension (6) Systolic CHF, acute on chronic Code(s): I50.23 - ACUTE ON CHRONIC SYSTOLIC (CONGESTIVE) HEART FAILURE
--- NOTE | 2018-09-05 15:03 | PN ---
Progress Note (short form) - Note Progress Note: Renal follow up for DEVORAH/CKD Pt seen and examined at the bedside no acute complaints no sob, cp, abd pain making urine Vital Signs Temperature 98.1 F 09/05/18 13:56 Pulse Rate 77 09/05/18 13:56 Respiratory Rate 18 09/05/18 13:56 Blood Pressure 114/70 09/05/18 13:56 O2 Sat by Pulse Oximetry (%) 100 09/05/18 09:00 Intake & Output 09/02/18 09/03/18 09/04/18 09/05/18 23:59 23:59 23:59 23:59 Output Total 400 Balance -400 Weight 72.575 kg 77.655 kg 76.204 kg NAD awake and alert neck supple, no JVD RRR, no M/R CTA, no rales soft NT/ND, no rebound or guarding ++ edema in LE, no cyanosis or clubbing CBC, BMP 09/05/18 06:00 09/05/18 06:00 Current Medications Amlodipine Besylate (Norvasc -) 5 mg PO BID [facility] Last Admin: 09/05/18 10:12 Dose: 5 mg Apixaban (Eliquis -) 5 mg PO BID [facility] Last Admin: 09/05/18 10:12 Dose: 5 mg Aspirin (Ecotrin -) 81 mg PO DAILY [facility] Last Admin: 09/05/18 10:12 Dose: 81 mg Carvedilol (Coreg -) 25 mg PO BID [facility] Last Admin: 09/05/18 10:12 Dose: 25 mg Furosemide (Lasix Injection -) 40 mg IVPUSH BID@0600,1400 [facility] Last Admin: 09/05/18 13:50 Dose: 40 mg Hydralazine HCl (Apresoline -) 25 mg PO BID [facility] Last Admin: 09/05/18 10:12 Dose: 25 mg Insulin Detemir (Levemir Vial) 12 units SQ DAILY@0700 [facility] Last Admin: 09/05/18 06:07 Dose: Not Given Pantoprazole Sodium (Protonix -) 20 mg PO DAILY [facility] Last Admin: 09/05/18 10:12 Dose: 20 mg Rosuvastatin Calcium (Crestor -) 20 mg PO HS [facility] Last Admin: 09/04/18 23:54 Dose: 20 mg 68 year old gentleman with hx of Afib on Eilquis, CAD s/p PCI, CHF, HTN, DM, Sleep Apnea who presented with increasing sob and leg swelling and to have DEVORAH on CKD in setting of fluid overload #DEVORAH on CKD in setting of fluid overload r/o Cardio-renal syndrome vs progressive CKD #CHF exacerbation #Hypertension #Dm on insulin #Elevated liver enzymes Renal function stable continue IV diuretics as per cardiology would withhold any BRUCE/ARB at this time Avoid NSAIDs, IV Contrast salt restricted diet trend daily weights Trend renal function and electrolytes Thank you will follow Eric Greenfield DO
[2018-09-05] MEDS: ROSUVASTATIN CA 20 MG TABLET (FP) PO SCH (21:19)
[2018-09-06] MEDS: FUROSEMIDE 40 MG/4 ML INJECTABLE VIAL IVPUSH SCH ×2 (05:43→13:49)
[2018-09-06 06:36] LABS: ANION GAP 6 MMOL/L (8-16); BLOOD UREA NITROGEN 30 mg/dL (7-18); CALCIUM 8.4 mg/dL (8.5-10.1); CHLORIDE 103 mmol/L (98-107); CO2 32 mmol/L (21-32); CREATININE 2.6 mg/dL (0.55-1.3); GLUCOSE,RANDOM 145 mg/dL (74-106); POTASSIUM 4.2 mmol/L (3.5-5.1); SODIUM 141 mmol/L (136-145)
[2018-09-06] MEDS: INSULIN (LEVEMIR) 100 UNITS/ML UNITS SQ SCH (09:08)
[2018-09-06] MEDS: hydrALAZINE HCL 25 MG TABLET (FP) PO SCH ×2 (09:09→21:34)
[2018-09-06] MEDS: amLODIPine BESYLATE 5 MG TABLET (FP) PO SCH ×2 (09:09→21:34)
[2018-09-06] MEDS: PANTOPRAZOLE 20 MG TABLET (FP) PO SCH (09:09)
[2018-09-06] MEDS: ASPIRIN COATED 81 MG TABLET.EC PO SCH (09:09)
[2018-09-06] MEDS: APIXABAN 5 MG TABLET PO SCH ×2 (09:13→21:34)
[2018-09-06] MEDS: CARVEDILOL 25 MG TABLET (FP) PO SCH ×2 (09:14→21:34)
--- NOTE | 2018-09-06 12:06 | PN ---
Progress Note (short form) - Note Progress Note: s: sob better, le edema improving. no cp palps dizzy o: Vital Signs Period Temp Pulse Resp BP Sys/Beckford Pulse Ox Last 24 Hr 97.4 F-98.2 F 71-85 18-20 114-127/63-86 97-97 Constitutional: Yes: No Distress, Calm Eyes: Yes: Conjunctiva Clear, Neck: Yes: Supple, Trachea Midline Respiratory: Yes: Regular, CTA Bilaterally Gastrointestinal: Yes: Normal Bowel Sounds, Soft Cardiovascular: Yes: Regular Rate and Rhythm JVD: Yes Heart Sounds: Yes: S1, S2 Extremities: No: Cold Edema: Yes Edema: LLE: 2+, RLE: 2+ Peripheral Pulses WNL: Yes Peripheral Pulses: 2+ Left Doralis Pedis, 2+ Right Dorsalis Pedis Integumentary: No: Jaundice Neurological: Yes: Alert, Oriented Psychiatric: No: Agitated Current Medications Generic Name Dose Route Start Last Admin Trade Name Freq PRN Reason Stop Dose Admin Amlodipine Besylate 5 mg 09/04/18 10:00 09/06/18 09:09 Norvasc - PO 5 mg BID ANJALI Administration Apixaban 5 mg 09/04/18 11:10 09/06/18 09:13 Eliquis - PO 5 mg BID ANJALI Administration Aspirin 81 mg 09/04/18 10:00 09/06/18 09:09 Ecotrin - PO 81 mg DAILY ANJALI Administration Carvedilol 25 mg 09/04/18 11:06 09/06/18 09:14 Coreg - PO 25 mg BID ANJALI Administration Furosemide 40 mg 09/04/18 14:00 09/06/18 05:43 Lasix Injection - IVPUSH 40 mg BID@0600,1400 ANJALI Administration Hydralazine HCl 25 mg 09/04/18 10:00 09/06/18 09:09 Apresoline - PO 25 mg BID ANJALI Administration Insulin Detemir 12 units 09/04/18 07:00 09/06/18 09:08 Levemir Vial SQ 12 unit DAILY@0700 ANJALI Administration Pantoprazole Sodium 20 mg 09/04/18 10:00 09/06/18 09:09 Protonix - PO 20 mg DAILY ANJALI Administration Rosuvastatin Calcium 20 mg 09/04/18 22:00 09/05/18 21:19 Crestor - PO 20 mg HS ANJALI Administration CBC, BMP 09/05/18 06:00 09/06/18 05:10 Assessment/Plan EKG: afib, LVH with repol abnormality CXR: mild congestion tele: afib, rate ok echo 08/2018: sev dec lvef, global hk, rv tds, mary, IASA, sev mr/tr, rvsp 40-50 Acute on chronic systolic HF - has not taken meds in over a year - BNP >9000 - cont coreg, hydralazine; no BRUCE/ARB in setting of CKD - received IV lasix, improving, cont same - cont lasix 40 mg IV BID, trend Cr, lytes, daily standing weights Afib - rate ok on coreg - cont eliquis Elevated trop - indeterminate range, flat trend, EKG no ischemic changes, less likely ACS - likely demand ischemia in setting of CHF exac HTN - not compliant with meds at home - cont coreg, amlodipine, hydralazine, monitor BP HLD -LDL 264, total cholesterol 363 - was not taking statin as prescribed -restart rosuvastatin CAD - cont aspirin, statin DEVORAH on CKD - nephrology consulted - baseline 1.8-2.4 DM - manage per primary RUTHANN - refusing CPAP
--- NOTE | 2018-09-06 12:10 | PN ---
Progress Note (short form) - Note Progress Note: Pt seen/ examined chart reviewed feels much better Vital Signs Temp 97.9 F 09/06/18 06:47 Pulse 82 09/06/18 06:47 Resp 20 09/06/18 08:57 BP 116/63 09/06/18 06:47 Pulse Ox 97 09/06/18 08:57 Intake & Output 09/05/18 09/06/18 09/06/18 23:59 11:59 23:59 Intake Total 100 Output Total 200 Balance -200 100 Weight 168 lb 168 lb 6 oz Intake: Oral 100 Output: Urine 200 Void 200 Other: Voiding Method Toilet Toilet # Unmeasured Voids Void 2 Height 5 ft 7 in Body Mass Index (BMI) 26.3 Weight Measurement Method Standing Scale Active Medications Amlodipine Besylate (Norvasc -) 5 mg PO BID [facility] Last Admin: 09/06/18 09:09 Dose: 5 mg Apixaban (Eliquis -) 5 mg PO BID [facility] Last Admin: 09/06/18 09:13 Dose: 5 mg Aspirin (Ecotrin -) 81 mg PO DAILY [facility] Last Admin: 09/06/18 09:09 Dose: 81 mg Carvedilol (Coreg -) 25 mg PO BID [facility] Last Admin: 09/06/18 09:14 Dose: 25 mg Furosemide (Lasix Injection -) 40 mg IVPUSH BID@0600,1400 [facility] Last Admin: 09/06/18 05:43 Dose: 40 mg Hydralazine HCl (Apresoline -) 25 mg PO BID [facility] Last Admin: 09/06/18 09:09 Dose: 25 mg Insulin Detemir (Levemir Vial) 12 units SQ DAILY@0700 [facility] Last Admin: 09/06/18 09:08 Dose: 12 unit Pantoprazole Sodium (Protonix -) 20 mg PO DAILY [facility] Last Admin: 09/06/18 09:09 Dose: 20 mg Rosuvastatin Calcium (Crestor -) 20 mg PO HS [facility] Last Admin: 09/05/18 21:19 Dose: 20 mg CBC, BMP 09/05/18 06:00 09/06/18 05:10 Physical Exam S1 S2 Irregular Lungs decreased breath sounds B/L abd- soft, NT edema++ Neuro - aox 3 PLAN Better Lasix BID monitor renal function Baseline around 1.9-2 Hold off ACEI /ARB for now restarted statins and Eliquis Compliance major issue - discussed again will follow Problem List - Problems (1) Acute kidney injury superimposed on CKD Code(s): N17.9 - ACUTE KIDNEY FAILURE, UNSPECIFIED; N18.9 - CHRONIC KIDNEY DISEASE, UNSPECIFIED (2) Afib Code(s): I48.91 - UNSPECIFIED ATRIAL FIBRILLATION Qualifiers: Atrial fibrillation type: unspecified Qualified Code(s): I48.91 - Unspecified atrial fibrillation (3) Shortness of breath Code(s): R06.02 - SHORTNESS OF BREATH (4) Diabetes mellitus, insulin dependent (IDDM), uncontrolled Code(s): E10.65 - TYPE 1 DIABETES MELLITUS WITH HYPERGLYCEMIA (5) HTN (hypertension) Code(s): I10 - ESSENTIAL (PRIMARY) HYPERTENSION Qualifiers: Hypertension type: renovascular hypertension Qualified Code(s): I15.0 - Renovascular hypertension (6) Systolic CHF, acute on chronic Code(s): I50.23 - ACUTE ON CHRONIC SYSTOLIC (CONGESTIVE) HEART FAILURE
--- NOTE | 2018-09-06 13:25 | PN ---
Progress Note (short form) - Note Progress Note: Renal follow up for DEVORAH/CKD Pt seen and examined at the bedside feels better amble to ambulate more no cough, sob at rest, cp, abd pain, N/V/D making urine Vital Signs Temperature 97.9 F 09/06/18 06:47 Pulse Rate 82 09/06/18 06:47 Respiratory Rate 20 09/06/18 08:57 Blood Pressure 116/63 09/06/18 06:47 O2 Sat by Pulse Oximetry (%) 97 09/06/18 08:57 Intake & Output 09/03/18 09/04/18 09/05/18 09/06/18 23:59 23:59 23:59 23:59 Intake Total 100 Output Total 600 Balance -600 100 Weight 72.575 kg 77.655 kg 76.204 kg 76.374 kg NAD awake and alert neck supple, no JVD RRR, no M/R CTA, no rales soft NT/ND, no rebound or guarding ++ edema in LE, no cyanosis or clubbing CBC, BMP 09/05/18 06:00 09/06/18 05:10 Current Medications Amlodipine Besylate (Norvasc -) 5 mg PO BID [facility] Last Admin: 09/06/18 09:09 Dose: 5 mg Apixaban (Eliquis -) 5 mg PO BID [facility] Last Admin: 09/06/18 09:13 Dose: 5 mg Aspirin (Ecotrin -) 81 mg PO DAILY [facility] Last Admin: 09/06/18 09:09 Dose: 81 mg Carvedilol (Coreg -) 25 mg PO BID [facility] Last Admin: 09/06/18 09:14 Dose: 25 mg Furosemide (Lasix Injection -) 40 mg IVPUSH BID@0600,1400 [facility] Last Admin: 09/06/18 05:43 Dose: 40 mg Hydralazine HCl (Apresoline -) 25 mg PO BID [facility] Last Admin: 09/06/18 09:09 Dose: 25 mg Insulin Detemir (Levemir Vial) 12 units SQ DAILY@0700 [facility] Last Admin: 09/06/18 09:08 Dose: 12 unit Pantoprazole Sodium (Protonix -) 20 mg PO DAILY [facility] Last Admin: 09/06/18 09:09 Dose: 20 mg Rosuvastatin Calcium (Crestor -) 20 mg PO HS [facility] Last Admin: 09/05/18 21:19 Dose: 20 mg 68 year old gentleman with hx of Afib on Eilquis, CAD s/p PCI, CHF, HTN, DM, Sleep Apnea who presented with increasing sob and leg swelling and to have DEVORAH on CKD in setting of fluid overload #DEVORAH on CKD in setting of fluid overload r/o Cardio-renal syndrome vs progressive CKD #CHF exacerbation #Hypertension #Dm on insulin #Elevated liver enzymes Renal function remains stable continue IV Lasix BID as per Cardiology would not start BRUCE/ARB while pt on IV lasix dose all meds for CrCl < 30 US of the liver showed no overt pathology Trend renal function and electrolytes daily Eric Greenfield DO
[2018-09-06] MEDS: ROSUVASTATIN CA 20 MG TABLET (FP) PO SCH (21:34)
[2018-09-07] MEDS: FUROSEMIDE 40 MG/4 ML INJECTABLE VIAL IVPUSH SCH ×2 (05:44→13:51)
[2018-09-07] MEDS: INSULIN (LEVEMIR) 100 UNITS/ML UNITS SQ SCH (07:18)
[2018-09-07 08:28] LABS: ALBUMIN 2.5 g/dl (3.4-5.0); ALK PHOS 83 U/L (45-117); ANION GAP 6 MMOL/L (8-16); BILIRUBIN,TOTAL 0.6 mg/dL (0.2-1); BLOOD UREA NITROGEN 35 mg/dL (7-18); CALCIUM 8.4 mg/dL (8.5-10.1); CHLORIDE 102 mmol/L (98-107); CO2 33 mmol/L (21-32); CREATININE 2.8 mg/dL (0.55-1.3); GLUCOSE,RANDOM 139 mg/dL (74-106); MAGNESIUM 2.1 mg/dL (1.8-2.4); PHOSPHOROUS 3.5 mg/dL (2.5-4.9); POTASSIUM 3.7 mmol/L (3.5-5.1); SGOT/AST 24 U/L (15-37); SGPT/ALT 30 U/L (13-61); SODIUM 141 mmol/L (136-145); TOT PROT 6.2 g/dl (6.4-8.2)
[2018-09-07] MEDS: ASPIRIN COATED 81 MG TABLET.EC PO SCH (09:43)
[2018-09-07] MEDS: PANTOPRAZOLE 20 MG TABLET (FP) PO SCH (09:43)
[2018-09-07] MEDS: CARVEDILOL 25 MG TABLET (FP) PO SCH ×2 (09:43→21:21)
[2018-09-07] MEDS: amLODIPine BESYLATE 5 MG TABLET (FP) PO SCH ×2 (09:43→21:21)
[2018-09-07] MEDS: APIXABAN 5 MG TABLET PO SCH ×2 (09:44→21:21)
[2018-09-07] MEDS: hydrALAZINE HCL 25 MG TABLET (FP) PO SCH ×2 (09:44→21:25)
--- NOTE | 2018-09-07 11:29 | PN ---
Progress Note, Physician History of Present Illness: Feels his breathing is significantly improved WEight down to 155 (168) Tele: Afib 60s - Current Medication List Current Medications: Active Medications Amlodipine Besylate (Norvasc -) 5 mg PO BID [facility] Last Admin: 09/07/18 09:43 Dose: 5 mg Apixaban (Eliquis -) 5 mg PO BID [facility] Last Admin: 09/07/18 09:44 Dose: 5 mg Aspirin (Ecotrin -) 81 mg PO DAILY [facility] Last Admin: 09/07/18 09:43 Dose: 81 mg Carvedilol (Coreg -) 25 mg PO BID [facility] Last Admin: 09/07/18 09:43 Dose: 25 mg Furosemide (Lasix Injection -) 40 mg IVPUSH BID@0600,1400 [facility] Last Admin: 09/07/18 05:44 Dose: 40 mg Hydralazine HCl (Apresoline -) 25 mg PO BID [facility] Last Admin: 09/07/18 09:44 Dose: 25 mg Insulin Detemir (Levemir Vial) 12 units SQ DAILY@0700 [facility] Last Admin: 09/07/18 07:18 Dose: 12 unit Pantoprazole Sodium (Protonix -) 20 mg PO DAILY [facility] Last Admin: 09/07/18 09:43 Dose: 20 mg Rosuvastatin Calcium (Crestor -) 20 mg PO HS [facility] Last Admin: 09/06/18 21:34 Dose: 20 mg - Objective Vital Signs: Vital Signs Temperature 97.9 F 09/07/18 07:00 Pulse Rate 72 09/07/18 07:00 Respiratory Rate 18 09/07/18 09:00 Blood Pressure 126/70 09/07/18 07:00 O2 Sat by Pulse Oximetry (%) 97 09/07/18 09:00 Constitutional: Yes: No Distress, Calm Eyes: Yes: WNL HENT: Yes: WNL Neck: Yes: WNL Cardiovascular: Yes: Pulse Irregular Respiratory: Yes: CTA Bilaterally Gastrointestinal: Yes: Normal Bowel Sounds Musculoskeletal: Yes: WNL Extremities: Yes: WNL Edema: Yes Edema: LLE: 2+, RLE: 2+ Labs: CBC, BMP 09/05/18 06:00 09/07/18 06:30 INR, PTT INR 1.05 (0.83-1.09) 09/03/18 20:16 Assessment/Plan Acute on chronic systolic HF - has not taken meds in over a year - BNP >9000 - cont coreg, hydralazine; no BRUCE/ARB in setting of CKD - 09/07/2018: Creat 2.8 (2.6) weight down, cont lasix 40 mg IV BID, trend Cr closely, lytes, daily standing weights Afib - rate ok on coreg - cont eliquis Elevated trop - indeterminate range, flat trend, EKG no ischemic changes, less likely ACS - likely demand ischemia in setting of CHF exac HTN - not compliant with meds at home - cont coreg, amlodipine, hydralazine, monitor BP HLD -LDL 264, total cholesterol 363 - was not taking statin as prescribed -restart rosuvastatin CAD - cont aspirin, statin
--- NOTE | 2018-09-07 12:01 | PN ---
Progress Note (short form) - Note Progress Note: pt seen/ examined chart reviewed all f/u noted. comfortable feels better legs still swollen Vital Signs Temp 97.9 F 09/07/18 07:00 Pulse 72 09/07/18 07:00 Resp 18 09/07/18 09:00 BP 126/70 09/07/18 07:00 Pulse Ox 97 09/07/18 09:00 Intake & Output 09/06/18 09/07/18 09/07/18 23:59 11:59 23:59 Intake Total 790 100 Balance 790 100 Weight 155 lb 8 oz Intake: Oral 790 100 Other: Voiding Method Toilet Toilet # Unmeasured Voids Void 2 Bowel Movement Yes Weight Measurement Method Standing Scale Active Medications Amlodipine Besylate (Norvasc -) 5 mg PO BID [facility] Last Admin: 09/07/18 09:43 Dose: 5 mg Apixaban (Eliquis -) 5 mg PO BID [facility] Last Admin: 09/07/18 09:44 Dose: 5 mg Aspirin (Ecotrin -) 81 mg PO DAILY [facility] Last Admin: 09/07/18 09:43 Dose: 81 mg Carvedilol (Coreg -) 25 mg PO BID [facility] Last Admin: 09/07/18 09:43 Dose: 25 mg Furosemide (Lasix Injection -) 40 mg IVPUSH BID@0600,1400 [facility] Last Admin: 09/07/18 05:44 Dose: 40 mg Hydralazine HCl (Apresoline -) 25 mg PO BID [facility] Last Admin: 09/07/18 09:44 Dose: 25 mg Insulin Detemir (Levemir Vial) 12 units SQ DAILY@0700 [facility] Last Admin: 09/07/18 07:18 Dose: 12 unit Pantoprazole Sodium (Protonix -) 20 mg PO DAILY [facility] Last Admin: 09/07/18 09:43 Dose: 20 mg Rosuvastatin Calcium (Crestor -) 20 mg PO HS [facility] Last Admin: 09/06/18 21:34 Dose: 20 mg CBC, BMP 09/05/18 06:00 09/07/18 06:30 Physical Exam S1 S2 Irregular Lungs decreased breath sounds B/L abd- soft, NT edema++ Neuro - aox 3 PLAN Better Continue Lasix BID monitor renal function Baseline around 1.9-2 Hold off ACEI /ARB for now restarted statins and Eliquis Compliance major issue - will follow Monitor rosendo Problem List - Problems (1) Acute kidney injury superimposed on CKD Code(s): N17.9 - ACUTE KIDNEY FAILURE, UNSPECIFIED; N18.9 - CHRONIC KIDNEY DISEASE, UNSPECIFIED (2) Afib Code(s): I48.91 - UNSPECIFIED ATRIAL FIBRILLATION Qualifiers: Atrial fibrillation type: unspecified Qualified Code(s): I48.91 - Unspecified atrial fibrillation (3) Shortness of breath Code(s): R06.02 - SHORTNESS OF BREATH (4) Diabetes mellitus, insulin dependent (IDDM), uncontrolled Code(s): E10.65 - TYPE 1 DIABETES MELLITUS WITH HYPERGLYCEMIA (5) HTN (hypertension) Code(s): I10 - ESSENTIAL (PRIMARY) HYPERTENSION Qualifiers: Hypertension type: renovascular hypertension Qualified Code(s): I15.0 - Renovascular hypertension (6) Systolic CHF, acute on chronic Code(s): I50.23 - ACUTE ON CHRONIC SYSTOLIC (CONGESTIVE) HEART FAILURE
--- NOTE | 2018-09-07 12:54 | PN ---
Progress Note, Physician Chief Complaint: The patient seen and examined in his room. Reports he is feeling better, but still significantly swollen LE. Denies any chest pains. Maintains good urine output. - Current Medication List Current Medications: Active Medications Amlodipine Besylate (Norvasc -) 5 mg PO BID [facility] Last Admin: 09/07/18 09:43 Dose: 5 mg Apixaban (Eliquis -) 5 mg PO BID [facility] Last Admin: 09/07/18 09:44 Dose: 5 mg Aspirin (Ecotrin -) 81 mg PO DAILY [facility] Last Admin: 09/07/18 09:43 Dose: 81 mg Carvedilol (Coreg -) 25 mg PO BID [facility] Last Admin: 09/07/18 09:43 Dose: 25 mg Furosemide (Lasix Injection -) 40 mg IVPUSH BID@0600,1400 [facility] Last Admin: 09/07/18 05:44 Dose: 40 mg Hydralazine HCl (Apresoline -) 25 mg PO BID [facility] Last Admin: 09/07/18 09:44 Dose: 25 mg Insulin Detemir (Levemir Vial) 12 units SQ DAILY@0700 [facility] Last Admin: 09/07/18 07:18 Dose: 12 unit Pantoprazole Sodium (Protonix -) 20 mg PO DAILY [facility] Last Admin: 09/07/18 09:43 Dose: 20 mg Rosuvastatin Calcium (Crestor -) 20 mg PO HS [facility] Last Admin: 09/06/18 21:34 Dose: 20 mg - Objective Vital Signs: Vital Signs Temperature 97.9 F 09/07/18 07:00 Pulse Rate 72 09/07/18 07:00 Respiratory Rate 18 09/07/18 09:00 Blood Pressure 126/70 09/07/18 07:00 O2 Sat by Pulse Oximetry (%) 97 09/07/18 09:00 Constitutional: Yes: No Distress, Anxious Eyes: Yes: Conjunctiva Clear HENT: Yes: Normocephalic Neck: Yes: Trachea Midline Cardiovascular: Yes: Tachycardia, Pulse Irregular, S1, S2 Respiratory: Yes: CTA Bilaterally, Diminished Gastrointestinal: Yes: Normal Bowel Sounds, Soft Edema: Yes Edema: LLE: 2+, RLE: 2+ Neurological: Yes: Alert, Oriented Labs: CBC, BMP 09/05/18 06:00 09/07/18 06:30 INR, PTT INR 1.05 (0.83-1.09) 09/03/18 20:16 Problem List - Problems (1) Afib Code(s): I48.91 - UNSPECIFIED ATRIAL FIBRILLATION Qualifiers: Atrial fibrillation type: unspecified Qualified Code(s): I48.91 - Unspecified atrial fibrillation (2) Shortness of breath Code(s): R06.02 - SHORTNESS OF BREATH (3) Systolic CHF, acute on chronic Code(s): I50.23 - ACUTE ON CHRONIC SYSTOLIC (CONGESTIVE) HEART FAILURE (4) Anemia Code(s): D64.9 - ANEMIA, UNSPECIFIED (5) Chronic renal insufficiency, stage III (moderate) Code(s): N18.3 - CHRONIC KIDNEY DISEASE, STAGE 3 (MODERATE) (6) HTN (hypertension) Code(s): I10 - ESSENTIAL (PRIMARY) HYPERTENSION Qualifiers: Hypertension type: renovascular hypertension Qualified Code(s): I15.0 - Renovascular hypertension (7) Weakness Code(s): R53.1 - WEAKNESS Assessment/Plan 68 year old gentleman with hx of Afib on Eilquis, CAD s/p PCI, CHF, HTN, DM, Sleep Apnea who presented with increasing sob and leg swelling and to have DEVORAH on CKD in setting of fluid overload DEVORAH on CKD in setting of fluid overload . Azotemia is slowly progressive. May have to settle for higher degree of azotemia to keep him out of the CHF. CHF exacerbation... Will continue the IV Lasix as ordered. Hypertension DM on insulin Thank you. Mireya Nascimento MD
--- NOTE | 2018-09-07 16:49 | EKG ---
Test Reason : Blood Pressure : / mmHG Vent. Rate : 126 BPM Atrial Rate : 119 BPM P-R Int : 000 ms QRS Dur : 096 ms QT Int : 276 ms P-R-T Axes : 000 070 225 degrees QTc Int : 399 ms ATRIAL FIBRILLATION WITH RAPID VENTRICULAR RESPONSE MODERATE VOLTAGE CRITERIA FOR LVH, MAY BE NORMAL VARIANT ABNORMAL ECG WHEN COMPARED WITH ECG OF 24-FEB-2017 12:55, VENT. RATE HAS INCREASED BY [address] NOW DEPRESSED IN LATERAL LEADS NONSPECIFIC T WAVE ABNORMALITY NOW EVIDENT IN INFERIOR LEADS Confirmed by Yoana Titus ([id number]) on 09/07/2018 4:49:15 PM Referred By: Confirmed By:Yoana Titus
[2018-09-07] MEDS: ROSUVASTATIN CA 20 MG TABLET (FP) PO SCH (21:21)
[2018-09-08] MEDS: INSULIN (LEVEMIR) 100 UNITS/ML UNITS SQ SCH (06:26)
[2018-09-08] MEDS: FUROSEMIDE 40 MG/4 ML INJECTABLE VIAL IVPUSH SCH ×2 (06:26→14:04)
[2018-09-08] MEDS: hydrALAZINE HCL 25 MG TABLET (FP) PO SCH ×2 (09:47→21:10)
[2018-09-08] MEDS: CARVEDILOL 25 MG TABLET (FP) PO SCH ×2 (09:47→21:10)
[2018-09-08] MEDS: amLODIPine BESYLATE 5 MG TABLET (FP) PO SCH (09:47)
[2018-09-08] MEDS: ASPIRIN COATED 81 MG TABLET.EC PO SCH (09:47)
[2018-09-08] MEDS: APIXABAN 5 MG TABLET PO SCH ×2 (09:47→21:10)
[2018-09-08] MEDS: PANTOPRAZOLE 20 MG TABLET (FP) PO SCH (09:47)
--- NOTE | 2018-09-08 10:00 | PN ---
Progress Note, Physician History of Present Illness: No CV complaints overnight Dyspnea unchanged Tele: Afib at 65 with PVCs - Current Medication List Current Medications: Active Medications Amlodipine Besylate (Norvasc -) 5 mg PO BID [facility] Last Admin: 09/08/18 09:47 Dose: 5 mg Apixaban (Eliquis -) 5 mg PO BID [facility] Last Admin: 09/08/18 09:47 Dose: 5 mg Aspirin (Ecotrin -) 81 mg PO DAILY [facility] Last Admin: 09/08/18 09:47 Dose: 81 mg Carvedilol (Coreg -) 25 mg PO BID [facility] Last Admin: 09/08/18 09:47 Dose: 25 mg Furosemide (Lasix Injection -) 40 mg IVPUSH BID@0600,1400 [facility] Last Admin: 09/08/18 06:26 Dose: 40 mg Hydralazine HCl (Apresoline -) 25 mg PO BID [facility] Last Admin: 09/08/18 09:47 Dose: 25 mg Insulin Detemir (Levemir Vial) 12 units SQ DAILY@0700 [facility] Last Admin: 09/08/18 06:26 Dose: 12 unit Pantoprazole Sodium (Protonix -) 20 mg PO DAILY [facility] Last Admin: 09/08/18 09:47 Dose: 20 mg Rosuvastatin Calcium (Crestor -) 20 mg PO HS [facility] Last Admin: 09/07/18 21:21 Dose: 20 mg - Objective Vital Signs: Vital Signs Temperature 98.0 F 09/08/18 09:49 Pulse Rate 70 09/08/18 09:49 Respiratory Rate 16 09/08/18 09:49 Blood Pressure 118/73 09/08/18 09:49 O2 Sat by Pulse Oximetry (%) 97 09/07/18 21:00 Constitutional: Yes: No Distress Eyes: Yes: WNL HENT: Yes: WNL Neck: Yes: WNL Cardiovascular: Yes: Pulse Irregular Respiratory: Yes: CTA Bilaterally Musculoskeletal: Yes: WNL Extremities: Yes: WNL Edema: LLE: 2+, RLE: 2+ Labs: CBC, BMP 09/05/18 06:00 09/07/18 06:30 INR, PTT INR 1.05 (0.83-1.09) 09/03/18 20:16 Assessment/Plan Acute on chronic systolic HF - has not taken meds in over a year - BNP >9000 - cont coreg, hydralazine; no BRUCE/ARB in setting of CKD - 09/07/2018: Creat 2.8 (2.6) weight down, cont lasix 40 mg IV BID, trend Cr closely, lytes, daily standing weights - 09/08/2018: Creat Pending. Weight 168 (?accuracy). Continue lasix dosing Afib - rate ok on coreg - cont eliquis Elevated trop - indeterminate range, flat trend, EKG no ischemic changes, less likely ACS - likely demand ischemia in setting of CHF exac
--- NOTE | 2018-09-08 12:49 | PN ---
Progress Note (short form) - Note Progress Note: pt seen/ examined feels better sitting in chair Vital Signs Temp 98.0 F 09/08/18 09:49 Pulse 70 09/08/18 09:49 Resp 16 09/08/18 09:49 BP 118/73 09/08/18 09:49 Pulse Ox 97 09/07/18 21:00 Intake & Output 09/07/18 09/08/18 09/08/18 23:59 11:59 23:59 Intake Total 500 Balance 500 Weight 168 lb 6.4 oz Intake: Oral 500 Other: Voiding Method Toilet Toilet # Unmeasured Voids Void 2 Bowel Movement No Weight Measurement Method Standing Scale Active Medications Amlodipine Besylate (Norvasc -) 5 mg PO BID [facility] Last Admin: 09/08/18 09:47 Dose: 5 mg Apixaban (Eliquis -) 5 mg PO BID [facility] Last Admin: 09/08/18 09:47 Dose: 5 mg Aspirin (Ecotrin -) 81 mg PO DAILY [facility] Last Admin: 09/08/18 09:47 Dose: 81 mg Carvedilol (Coreg -) 25 mg PO BID [facility] Last Admin: 09/08/18 09:47 Dose: 25 mg Furosemide (Lasix Injection -) 40 mg IVPUSH BID@0600,1400 [facility] Last Admin: 09/08/18 06:26 Dose: 40 mg Hydralazine HCl (Apresoline -) 25 mg PO BID [facility] Last Admin: 09/08/18 09:47 Dose: 25 mg Insulin Detemir (Levemir Vial) 12 units SQ DAILY@0700 [facility] Last Admin: 09/08/18 06:26 Dose: 12 unit Pantoprazole Sodium (Protonix -) 20 mg PO DAILY [facility] Last Admin: 09/08/18 09:47 Dose: 20 mg Rosuvastatin Calcium (Crestor -) 20 mg PO HS [facility] Last Admin: 09/07/18 21:21 Dose: 20 mg CBC, BMP 09/05/18 06:00 09/07/18 06:30 Physical Exam awake/ comfortable S1 S2 Irregular Lungs decreased breath sounds B/L abd- soft, NT edema++ Neuro - aox 3 PLAN Better Continue Lasix BID monitor renal function Baseline around 1.9-2 Hold off ACEI /ARB for now restarted statins and Eliquis Compliance major issue - will follow Monitor lytes
--- NOTE | 2018-09-08 13:38 | PN ---
Progress Note, Physician Chief Complaint: The patient seen and examined in his room. Reports he is feeling better, but still significantly swollen LE. Denies any chest pains. Maintains good urine output. History of Present Illness: This is a 68 year old gentleman with hx of Afib on Eilquis, CAD s/p PCI, CHF, HTN, DM, Sleep Apnea who presented with increasing SOB and leg swelling and found to have DEVORAH on CKD in setting of fluid overload - Current Medication List Current Medications: Active Medications Amlodipine Besylate (Norvasc -) 5 mg PO BID [facility] Last Admin: 09/08/18 09:47 Dose: 5 mg Apixaban (Eliquis -) 5 mg PO BID [facility] Last Admin: 09/08/18 09:47 Dose: 5 mg Aspirin (Ecotrin -) 81 mg PO DAILY [facility] Last Admin: 09/08/18 09:47 Dose: 81 mg Carvedilol (Coreg -) 25 mg PO BID [facility] Last Admin: 09/08/18 09:47 Dose: 25 mg Furosemide (Lasix Injection -) 40 mg IVPUSH BID@0600,1400 [facility] Last Admin: 09/08/18 06:26 Dose: 40 mg Hydralazine HCl (Apresoline -) 25 mg PO BID [facility] Last Admin: 09/08/18 09:47 Dose: 25 mg Insulin Detemir (Levemir Vial) 12 units SQ DAILY@0700 [facility] Last Admin: 09/08/18 06:26 Dose: 12 unit Pantoprazole Sodium (Protonix -) 20 mg PO DAILY [facility] Last Admin: 09/08/18 09:47 Dose: 20 mg Rosuvastatin Calcium (Crestor -) 20 mg PO HS [facility] Last Admin: 09/07/18 21:21 Dose: 20 mg - Objective Vital Signs: Vital Signs Temperature 98.0 F 09/08/18 09:49 Pulse Rate 70 09/08/18 09:49 Respiratory Rate 16 09/08/18 09:49 Blood Pressure 118/73 09/08/18 09:49 O2 Sat by Pulse Oximetry (%) 97 09/07/18 21:00 Constitutional: Yes: Well Nourished, Calm Eyes: Yes: Conjunctiva Clear HENT: Yes: Normocephalic Neck: Yes: Trachea Midline Cardiovascular: Yes: Tachycardia, Pulse Irregular, S1, S2 Respiratory: Yes: CTA Bilaterally, Diminished Gastrointestinal: Yes: Normal Bowel Sounds, Soft Genitourinary: No: CVA Tenderness - Left, CVA Tenderness - Right, Hematuria, Incontinence Musculoskeletal: Yes: Joint Stiffness Edema: Yes Edema: LLE: 2+, RLE: 2+ Neurological: Yes: Alert, Oriented Psychiatric: Yes: Alert Labs: CBC, BMP 09/05/18 06:00 09/07/18 06:30 INR, PTT INR 1.05 (0.83-1.09) 09/03/18 20:16 Problem List - Problems (1) Afib Code(s): I48.91 - UNSPECIFIED ATRIAL FIBRILLATION Qualifiers: Atrial fibrillation type: unspecified Qualified Code(s): I48.91 - Unspecified atrial fibrillation (2) Shortness of breath Code(s): R06.02 - SHORTNESS OF BREATH (3) Systolic CHF, acute on chronic Code(s): I50.23 - ACUTE ON CHRONIC SYSTOLIC (CONGESTIVE) HEART FAILURE (4) Anemia Code(s): D64.9 - ANEMIA, UNSPECIFIED (5) Chronic renal insufficiency, stage III (moderate) Code(s): N18.3 - CHRONIC KIDNEY DISEASE, STAGE 3 (MODERATE) (6) HTN (hypertension) Code(s): I10 - ESSENTIAL (PRIMARY) HYPERTENSION Qualifiers: Hypertension type: renovascular hypertension Qualified Code(s): I15.0 - Renovascular hypertension (7) Weakness Code(s): R53.1 - WEAKNESS Assessment/Plan 68 year old gentleman with hx of Afib on Eilquis, CAD s/p PCI, CHF, HTN, DM, Sleep Apnea who presented with increasing sob and leg swelling and to have DEVORAH on CKD in setting of fluid overload DEVORAH on CKD in setting of fluid overload . Azotemia is slowly progressive. May have to settle for higher degree of azotemia to keep him out of the CHF. CHF exacerbation... Will continue the IV Lasix as ordered. Some of the edema may be 2/2 Amlodipine. Hypertension DM on insulin Will D/C Amlodipine. BP too well controlled. Thank you. Mireya Nascimento MD
[2018-09-08] MEDS: ROSUVASTATIN CA 20 MG TABLET (FP) PO SCH (21:10)
[2018-09-09] MEDS: INSULIN (LEVEMIR) 100 UNITS/ML UNITS SQ SCH (06:33)
[2018-09-09] MEDS: FUROSEMIDE 40 MG/4 ML INJECTABLE VIAL IVPUSH SCH ×2 (06:33→14:06)
[2018-09-09 07:36] LABS: ANION GAP 8 MMOL/L (8-16); BLOOD UREA NITROGEN 42 mg/dL (7-18); CALCIUM 8.3 mg/dL (8.5-10.1); CHLORIDE 105 mmol/L (98-107); CO2 30 mmol/L (21-32); CREATININE 2.7 mg/dL (0.55-1.3); GLUCOSE,RANDOM 133 mg/dL (74-106); POTASSIUM 3.8 mmol/L (3.5-5.1); SODIUM 142 mmol/L (136-145)
--- NOTE | 2018-09-09 09:40 | PN ---
Progress Note, Physician Chief Complaint: sob History of Present Illness: notes leg swelling and orthopnea for about 1 months. also with cough sometimes with white phlegm no chest pain orthopnea resolved here (? elevating head of bed??) swelling persists no cigs - Current Medication List Current Medications: Active Medications Apixaban (Eliquis -) 5 mg PO BID [facility] Last Admin: 09/08/18 21:10 Dose: 5 mg Aspirin (Ecotrin -) 81 mg PO DAILY [facility] Last Admin: 09/08/18 09:47 Dose: 81 mg Carvedilol (Coreg -) 25 mg PO BID [facility] Last Admin: 09/08/18 21:10 Dose: 25 mg Furosemide (Lasix Injection -) 40 mg IVPUSH BID@0600,1400 [facility] Last Admin: 09/09/18 06:33 Dose: 40 mg Hydralazine HCl (Apresoline -) 25 mg PO BID [facility] Last Admin: 09/08/18 21:10 Dose: 25 mg Insulin Detemir (Levemir Vial) 12 units SQ DAILY@0700 [facility] Last Admin: 09/09/18 06:33 Dose: 12 unit Pantoprazole Sodium (Protonix -) 20 mg PO DAILY [facility] Last Admin: 09/08/18 09:47 Dose: 20 mg Rosuvastatin Calcium (Crestor -) 20 mg PO HS [facility] Last Admin: 09/08/18 21:10 Dose: 20 mg - Objective Vital Signs: Vital Signs Temperature 97.7 F 09/09/18 06:00 Pulse Rate 64 09/09/18 06:00 Respiratory Rate 18 09/09/18 06:00 Blood Pressure 130/72 09/09/18 06:00 O2 Sat by Pulse Oximetry (%) 98 09/08/18 20:24 Constitutional: Yes: No Distress, Calm Eyes: No: Sclera Icterus HENT: No: Nasal Congestion Cardiovascular: Yes: Pulse Irregular, S1, S2, Other (PMI non diplaced). No: JVD (in chair), Gallop, Murmur Respiratory: Yes: CTA Bilaterally. No: Accessory Muscle Use, Rales, Wheezes Gastrointestinal: Yes: Normal Bowel Sounds, Soft. No: Tenderness Musculoskeletal: Yes: Other (No kyphosis) Extremities: No: Cold Edema: Yes (2+ pretib) Integumentary: No: Jaundice Neurological: Yes: Alert, Oriented (x3) Psychiatric: No: Agitated Labs: CBC, BMP 09/05/18 06:00 09/09/18 06:00 INR, PTT INR 1.05 (0.83-1.09) 09/03/18 20:16 Assessment/Plan EKG: afib, LVH with repol abnormality CXR: mild congestion Echo 08/2018: sev dec lvef, global hk, rv tds, mary, IASA, sev mr/tr, rvsp 40-50 Echo 01/2016: Mild LV dilation. Mild HK of basal inferior wall. Normal overall LVEF. Nl RV. Severe LAE. Mild RICARDO. Moderate to severe MR. Mild-mod TR. MPI 2017: 5 min (96% MPHR). non-diagnostic ECG. large region of inferolateral scar with mild vibha-infarct ischemia. IL akinesis, EF 35% tele: AF, good HR Acute on chronic systolic HF -discrepant EF findings on past echoes (normal) vs MPIs (35% as of 2017) -echo here severe LV syst dysfunction, with severe MR/TR, mild-mod pulm HTN - has not taken meds in over a year - BNP >9000 (low GFR). + JVD on exam per notes. CXR mildly congested - receiving lasix 40 IV bid here - cont coreg, hydralazine. no BRUCE/ARB in setting of CKD - unknown dry weight (last saw us 2016). pt says usually 160-165 at baseline. - 2/4: orthopnea and cough resolved. signif LE swelling persists. notes signif UOP to lasix. wt has not come down (consistently 168-170). bun rising, creat stable. increase lasix to 80 IV BID. reassess in AM Afib - rate ok on coreg - cont eliquis Elevated trop - indeterminate range, flat trend, EKG no ischemic changes, less likely ACS - likely demand ischemia in setting of CHF exac HTN - not compliant with meds at home - well controlled here - cont current meds HLD -LDL 264, total cholesterol 363 - was not taking statin as prescribed -restarted rosuvastatin here CAD -h/o s/p SD with 3 stents 2015 (to LCx, OM1 and OM2) - cont aspirin, statin DEVORAH on CKD - nephrology consulted - baseline 1.8-2.4 - stable here DM - manage per primary RUTHANN - refuses CPAP
[2018-09-09] MEDS: PANTOPRAZOLE 20 MG TABLET (FP) PO SCH (10:14)
[2018-09-09] MEDS: CARVEDILOL 25 MG TABLET (FP) PO SCH ×2 (10:15→21:49)
[2018-09-09] MEDS: ASPIRIN COATED 81 MG TABLET.EC PO SCH (10:15)
[2018-09-09] MEDS: APIXABAN 5 MG TABLET PO SCH ×2 (10:15→21:49)
[2018-09-09] MEDS: hydrALAZINE HCL 25 MG TABLET (FP) PO SCH ×2 (10:15→21:49)
--- NOTE | 2018-09-09 12:16 | PN ---
Progress Note (short form) - Note Progress Note: pt seen/ examined discussed with Dr. Brenner today. weight essentially same legs still swollen patient subjectively fee Denies chest pain Vital Signs Temp 97.9 F 09/09/18 10:00 Pulse 76 09/09/18 10:00 Resp 18 09/09/18 10:00 BP 143/63 09/09/18 10:00 Pulse Ox 98 09/08/18 20:24 Intake & Output 09/08/18 09/09/18 09/09/18 23:59 11:59 23:59 Intake Total 600 420 Balance 600 420 Weight 170 lb Intake: Oral 600 420 Other: Voiding Method Toilet Toilet # Unmeasured Voids Void 1 2 Bowel Movement No No Weight Measurement Method Standing Scale Active Medications Apixaban (Eliquis -) 5 mg PO BID [facility] Last Admin: 09/09/18 10:15 Dose: 5 mg Aspirin (Ecotrin -) 81 mg PO DAILY [facility] Last Admin: 09/09/18 10:15 Dose: 81 mg Carvedilol (Coreg -) 25 mg PO BID [facility] Last Admin: 09/09/18 10:15 Dose: 25 mg Furosemide (Lasix Injection -) 80 mg IVPUSH BID@0600,1400 [facility] Hydralazine HCl (Apresoline -) 25 mg PO BID [facility] Last Admin: 09/09/18 10:15 Dose: 25 mg Insulin Detemir (Levemir Vial) 12 units SQ DAILY@0700 [facility] Last Admin: 09/09/18 06:33 Dose: 12 unit Pantoprazole Sodium (Protonix -) 20 mg PO DAILY [facility] Last Admin: 09/09/18 10:14 Dose: 20 mg Rosuvastatin Calcium (Crestor -) 20 mg PO [facility] Last Admin: 09/08/18 21:10 Dose: 20 mg CBC, BMP 09/05/18 06:00 09/09/18 06:00 Physical Exam awake/ comfortable S1 S2 Irregular Lungs decreased breath sounds B/L abd- soft, NT edema++ Neuro - aox 3 PLAN Discussed Continue Lasix BID--- 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 monitor closely in telemetry and will follow
[2018-09-09] MEDS ORDERED: FUROSEMIDE 40 MG/4 ML INJECTABLE VIAL IVPUSH SCH (14:00)
--- NOTE | 2018-09-09 17:00 | PN ---
Progress Note (short form) - Note Progress Note: Renal follow up for DEVORAH/CKD Pt seen and examined at the bedside SOB/WALKER now resolved no chest pain has LE edema Vital Signs Temperature 97.3 F L 09/09/18 14:10 Pulse Rate 73 09/09/18 14:10 Respiratory Rate 16 09/09/18 14:10 Blood Pressure 123/72 09/09/18 14:10 O2 Sat by Pulse Oximetry (%) 98 09/09/18 09:00 Intake & Output 09/06/18 09/07/18 09/08/18 09/09/18 23:59 23:59 23:59 23:59 Intake Total 890 004 389 9729 Output Total 1800 Balance 890 600 600 -380 Weight 76.374 kg 70.534 kg 76.385 kg 77.111 kg NAD neck supple, no JVD RRR, no M/R CTA, no rales soft NT/ND, no rebound or guarding ++ edema in LE, no cyanosis or clubbing CBC, BMP 09/05/18 06:00 09/09/18 06:00 Current Medications Apixaban (Eliquis -) 5 mg PO BID [facility] Last Admin: 09/09/18 10:15 Dose: 5 mg Aspirin (Ecotrin -) 81 mg PO DAILY [facility] Last Admin: 09/09/18 10:15 Dose: 81 mg Carvedilol (Coreg -) 25 mg PO BID [facility] Last Admin: 09/09/18 10:15 Dose: 25 mg Furosemide (Lasix Injection -) 80 mg IVPUSH BID@0600,1400 [facility] Last Admin: 09/09/18 14:06 Dose: 80 mg Hydralazine HCl (Apresoline -) 25 mg PO BID [facility] Last Admin: 09/09/18 10:15 Dose: 25 mg Insulin Detemir (Levemir Vial) 12 units SQ DAILY@0700 [facility] Last Admin: 09/09/18 06:33 Dose: 12 unit Pantoprazole Sodium (Protonix -) 20 mg PO DAILY [facility] Last Admin: 09/09/18 10:14 Dose: 20 mg Rosuvastatin Calcium (Crestor -) 20 mg PO HS [facility] Last Admin: 09/08/18 21:10 Dose: 20 mg 68 year old gentleman with hx of Afib on Eilquis, CAD s/p PCI, CHF, HTN, DM, Sleep Apnea who presented with increasing sob and leg swelling and to have DEVORAH on CKD in setting of fluid overload #DEVORAH on CKD in setting of fluid overload r/o Cardio-renal syndrome vs progressive CKD #CHF exacerbation #Hypertension #Dm on insulin #Elevated liver enzymes Renal function remains stable continue IV Lasix BID as per Cardiology discharge planning once pt is evolemic Eric Greenfield DO
[2018-09-09] MEDS: ROSUVASTATIN CA 20 MG TABLET (FP) PO SCH (21:49)
[2018-09-10] MEDS: INSULIN (LEVEMIR) 100 UNITS/ML UNITS SQ SCH (06:26)
[2018-09-10] MEDS: FUROSEMIDE 40 MG/4 ML INJECTABLE VIAL IVPUSH SCH ×2 (06:26→13:44)
[2018-09-10 07:38] LABS: ANION GAP 6 MMOL/L (8-16); BLOOD UREA NITROGEN 41 mg/dL (7-18); CALCIUM 8.3 mg/dL (8.5-10.1); CHLORIDE 104 mmol/L (98-107); CO2 33 mmol/L (21-32); CREATININE 2.6 mg/dL (0.55-1.3); GLUCOSE,RANDOM 123 mg/dL (74-106); POTASSIUM 3.7 mmol/L (3.5-5.1); SODIUM 143 mmol/L (136-145)
--- NOTE | 2018-09-10 09:30 | PN ---
Progress Note (short form) - Note Progress Note: s: Current Medications Apixaban (Eliquis -) 5 mg PO BID [facility] Last Admin: 09/09/18 21:49 Dose: 5 mg Aspirin (Ecotrin -) 81 mg PO DAILY [facility] Last Admin: 09/09/18 10:15 Dose: 81 mg Carvedilol (Coreg -) 25 mg PO BID [facility] Last Admin: 09/09/18 21:49 Dose: 25 mg Furosemide (Lasix Injection -) 80 mg IVPUSH BID@0600,1400 [facility] Last Admin: 09/10/18 06:26 Dose: 80 mg Hydralazine HCl (Apresoline -) 25 mg PO BID [facility] Last Admin: 09/09/18 21:49 Dose: 25 mg Insulin Detemir (Levemir Vial) 12 units SQ DAILY@0700 [facility] Last Admin: 09/10/18 06:26 Dose: 12 unit Pantoprazole Sodium (Protonix -) 20 mg PO DAILY [facility] Last Admin: 09/09/18 10:14 Dose: 20 mg Rosuvastatin Calcium (Crestor -) 20 mg PO HS [facility] Last Admin: 09/09/18 21:49 Dose: 20 mg Vital Signs Period Temp Pulse Resp BP Sys/Beckford Pulse Ox Last 24 Hr 97.3 F-98.9 F 70-81 16-18 119-148/63-84 Constitutional: Yes: No Distress, Calm Eyes: No: Sclera Icterus HENT: No: Nasal Congestion Cardiovascular: Yes: Pulse Irregular, S1, S2, Other (PMI non diplaced). No: JVD (in chair), Gallop, Murmur Respiratory: Yes: CTA Bilaterally. No: Accessory Muscle Use, Rales, Wheezes Gastrointestinal: Yes: Normal Bowel Sounds, Soft. No: Tenderness Musculoskeletal: Yes: Other (No kyphosis) Extremities: No: Cold Edema: Yes (2+ pretib) Integumentary: No: Jaundice Neurological: Yes: Alert, Oriented (x3) Psychiatric: No: Agitated Assessment/Plan EKG: afib, LVH with repol abnormality CXR: mild congestion Echo 08/2018: sev dec lvef, global hk, rv tds, mary, IASA, sev mr/tr, rvsp 40-50 Echo 01/2016: Mild LV dilation. Mild HK of basal inferior wall. Normal overall LVEF. Nl RV. Severe LAE. Mild RICARDO. Moderate to severe MR. Mild-mod TR. MPI 2017: 5 min (96% MPHR). non-diagnostic ECG. large region of inferolateral scar with mild vibha-infarct ischemia. IL akinesis, EF 35% tele: AF, good HR Acute on chronic systolic HF -discrepant EF findings on past echoes (normal) vs MPIs (35% as of 2017) -echo here severe LV syst dysfunction, with severe MR/TR, mild-mod pulm HTN - has not taken meds in over a year - BNP >9000 (low GFR). + JVD on exam per notes. CXR mildly congested - receiving lasix 40 IV bid here - cont coreg, hydralazine. no BRUCE/ARB in setting of CKD - unknown dry weight (last saw us 2016). pt says usually 160-165 at baseline. - 2/4: orthopnea and cough resolved. signif LE swelling persists. notes signif UOP to lasix. wt has not come down (consistently 168-170). bun rising, creat stable. increase lasix to 80 IV BID. reassess in AM - 2/5: Cr decreasing, weight down 170->167, will continue lasix 80 mg IV BID, monitor Cr, lytes, daily standing weights Afib - rate ok on coreg - cont eliquis Elevated trop - indeterminate range, flat trend, EKG no ischemic changes, less likely ACS - likely demand ischemia in setting of CHF exac HTN - not compliant with meds at home - well controlled here - cont current meds HLD -LDL 264, total cholesterol 363 - was not taking statin as prescribed -restarted rosuvastatin here CAD -h/o s/p AR with 3 stents 2015 (to LCx, OM1 and OM2) - cont aspirin, statin DEVORAH on CKD - nephrology consulted - baseline 1.8-2.4 - stable here DM - manage per primary RUTHANN - refuses CPAP
[2018-09-10] MEDS: CARVEDILOL 25 MG TABLET (FP) PO SCH ×2 (09:32→21:17)
[2018-09-10] MEDS: hydrALAZINE HCL 25 MG TABLET (FP) PO SCH ×2 (09:32→21:17)
[2018-09-10] MEDS: ASPIRIN COATED 81 MG TABLET.EC PO SCH (09:32)
[2018-09-10] MEDS: APIXABAN 5 MG TABLET PO SCH ×2 (09:32→21:17)
[2018-09-10] MEDS: PANTOPRAZOLE 20 MG TABLET (FP) PO SCH (09:32)
--- NOTE | 2018-09-10 10:41 | PN ---
Progress Note (short form) - Note Progress Note: no distress no SOB Vital Signs - 24 hr 09/09/18 09/09/18 09/09/18 14:10 17:26 22:00 Temperature 97.3 F L 98.0 F 98.5 F Pulse Rate 73 77 70 Respiratory 16 16 17 Rate Blood Pressure 123/72 126/64 148/78 09/10/18 09/10/18 09/10/18 01:46 06:10 09:00 Temperature 98.9 F 98.3 F Pulse Rate 79 81 Respiratory 18 18 18 Rate Blood Pressure 126/71 119/84 09/10/18 09:33 Temperature 98.4 F Pulse Rate 74 Respiratory 18 Rate Blood Pressure 124/78 Current Medications Generic Name Dose Route Start Last Admin Trade Name Freq PRN Reason Stop Dose Admin Apixaban 5 mg 09/04/18 11:10 09/10/18 09:32 Eliquis - PO 5 mg BID [facility] Administration Aspirin 81 mg 09/04/18 10:00 09/10/18 09:32 Ecotrin - PO 81 mg DAILY [facility] Administration Carvedilol 25 mg 09/04/18 11:06 09/10/18 09:32 Coreg - PO 25 mg BID [facility] Administration Furosemide 80 mg 09/09/18 14:00 09/10/18 06:26 Lasix Injection - IVPUSH 80 mg BID@0600,1400 [facility] Administration Hydralazine HCl 25 mg 09/04/18 10:00 09/10/18 09:32 Apresoline - PO 25 mg BID [facility] Administration Insulin Detemir 12 units 09/04/18 07:00 09/10/18 06:26 Levemir Vial SQ 12 unit DAILY@0700 [facility] Administration Pantoprazole Sodium 20 mg 09/04/18 10:00 09/10/18 09:32 Protonix - PO 20 mg DAILY [facility] Administration Rosuvastatin Calcium 20 mg 09/04/18 22:00 09/09/18 21:49 Crestor - PO 20 mg HS [facility] Administration Laboratory Results - last 24 hr 09/09/18 09/10/18 09/10/18 23:19 05:32 06:00 Sodium 143 Potassium 3.7 Chloride 104 Carbon Dioxide 33 H Anion Gap 6 L BUN 41 H Creatinine 2.6 H Creat Clearance w eGFR 24.67 POC Glucometer 135 121 Random Glucose 123 H Calcium 8.3 L s1 S2 irregular Lungs decreased breath sounds B/L abd- soft, NT edema++ decreased PLAN Lasix BID- increased to 80mg iv bid monitor renal function- improving weight decreased 170 ---> 167 lbs Baseline around 1.9-2 Hold off ACEI /ARB for now restarted statins and Eliquis Problem List - Problems (1) Acute kidney injury superimposed on CKD Code(s): N17.9 - ACUTE KIDNEY FAILURE, UNSPECIFIED; N18.9 - CHRONIC KIDNEY DISEASE, UNSPECIFIED (2) Afib Code(s): I48.91 - UNSPECIFIED ATRIAL FIBRILLATION Qualifiers: Atrial fibrillation type: unspecified Qualified Code(s): I48.91 - Unspecified atrial fibrillation (3) Shortness of breath Code(s): R06.02 - SHORTNESS OF BREATH (4) Diabetes mellitus, insulin dependent (IDDM), uncontrolled Code(s): E10.65 - TYPE 1 DIABETES MELLITUS WITH HYPERGLYCEMIA (5) HTN (hypertension) Code(s): I10 - ESSENTIAL (PRIMARY) HYPERTENSION Qualifiers: Hypertension type: renovascular hypertension Qualified Code(s): I15.0 - Renovascular hypertension (6) Systolic CHF, acute on chronic Code(s): I50.23 - ACUTE ON CHRONIC SYSTOLIC (CONGESTIVE) HEART FAILURE
--- NOTE | 2018-09-10 13:21 | PN ---
Progress Note (short form) - Note Progress Note: Renal follow up for DEVORAH/CKD Pt seen and examined at the bedside no acute complaints legs remains swollen, but no sob or crook making urine on IV diuretics Vital Signs Temperature 98.4 F 09/10/18 09:33 Pulse Rate 74 09/10/18 09:33 Respiratory Rate 18 09/10/18 09:33 Blood Pressure 124/78 09/10/18 09:33 O2 Sat by Pulse Oximetry (%) 98 09/09/18 09:00 Intake & Output 09/07/18 09/08/18 09/09/18 09/10/18 23:59 23:59 23:59 23:59 Intake Total 092 338 6792 500 Output Total 1800 Balance 600 600 -280 500 Weight 70.534 kg 76.385 kg 77.111 kg 75.75 kg NAD neck supple, no JVD RRR, no M/R CTA, no rales soft NT/ND, no rebound or guarding ++ edema in LE, no cyanosis or clubbing CBC, BMP 09/05/18 06:00 09/10/18 06:00 Current Medications Apixaban (Eliquis -) 5 mg PO BID [facility] Last Admin: 09/10/18 09:32 Dose: 5 mg Aspirin (Ecotrin -) 81 mg PO DAILY [facility] Last Admin: 09/10/18 09:32 Dose: 81 mg Carvedilol (Coreg -) 25 mg PO BID [facility] Last Admin: 09/10/18 09:32 Dose: 25 mg Furosemide (Lasix Injection -) 80 mg IVPUSH BID@0600,1400 [facility] Last Admin: 09/10/18 06:26 Dose: 80 mg Hydralazine HCl (Apresoline -) 25 mg PO BID [facility] Last Admin: 09/10/18 09:32 Dose: 25 mg Insulin Detemir (Levemir Vial) 12 units SQ DAILY@0700 [facility] Last Admin: 09/10/18 06:26 Dose: 12 unit Pantoprazole Sodium (Protonix -) 20 mg PO DAILY [facility] Last Admin: 09/10/18 09:32 Dose: 20 mg Rosuvastatin Calcium (Crestor -) 20 mg PO HS [facility] Last Admin: 09/09/18 21:49 Dose: 20 mg 68 year old gentleman with hx of Afib on Eilquis, CAD s/p PCI, CHF, HTN, DM, Sleep Apnea who presented with increasing sob and leg swelling and to have DEVORAH on CKD in setting of fluid overload #DEVORAH on CKD in setting of fluid overload r/o Cardio-renal syndrome vs progressive CKD #CHF exacerbation #Hypertension #Dm on insulin Renal function remains stable at this time continue IV diuretics as per Cardiology trend renal function and electrolytes low salt diet trend daily weights discharge planning based on cardiology and primary Eric Greenfield DO
[2018-09-10] MEDS: ROSUVASTATIN CA 20 MG TABLET (FP) PO SCH (21:17)
[2018-09-11 06:09] VITALS: BP 139/64; PULSE 81; TEMP 97.6
[2018-09-11] MEDS: FUROSEMIDE 40 MG/4 ML INJECTABLE VIAL IVPUSH SCH (06:19)
[2018-09-11] MEDS: INSULIN (LEVEMIR) 100 UNITS/ML UNITS SQ SCH (06:22)
[2018-09-11 07:03] LABS: HEMATOCRIT 38.3 % (35.4-49); HEMOGLOBIN 13.1 GM/dL (11.7-16.9); MCH 28.4 pg (25.7-33.7); MCHC 34.2 g/dl (32.0-35.9); MEAN CELL VOLUME 82.8 fl (80-96); MEAN PLT VOLUME 8.6 fl (7.5-11.1); PLATELET COUNT 198 K/MM3 (134-434); RBC 4.62 M/mm3 (4.00-5.60); RDW 16.4 % (11.9-15.9); WHITE BLOOD COUNT 5.5 K/mm3 (4.0-10.0)
[2018-09-11 07:22] LABS: ANION GAP 5 MMOL/L (8-16); BLOOD UREA NITROGEN 39 mg/dL (7-18); CALCIUM 8.1 mg/dL (8.5-10.1); CHLORIDE 103 mmol/L (98-107); CO2 32 mmol/L (21-32); CREATININE 2.4 mg/dL (0.55-1.3); GLUCOSE,RANDOM 137 mg/dL (74-106); POTASSIUM 3.4 mmol/L (3.5-5.1); SODIUM 140 mmol/L (136-145)
[2018-09-11] MEDS: CARVEDILOL 25 MG TABLET (FP) PO SCH (09:33)
[2018-09-11] MEDS: APIXABAN 5 MG TABLET PO SCH (09:33)
[2018-09-11] MEDS: hydrALAZINE HCL 25 MG TABLET (FP) PO SCH (09:33)
[2018-09-11] MEDS: PANTOPRAZOLE 20 MG TABLET (FP) PO SCH (09:33)
[2018-09-11] MEDS: ASPIRIN COATED 81 MG TABLET.EC PO SCH (09:33)
--- NOTE | 2018-09-11 09:52 | PN ---
Progress Note (short form) - Note Progress Note: no distress no sob feels well Vital Signs - 24 hr 09/10/18 09/10/18 09/10/18 13:44 14:09 18:00 Temperature 98.4 F 97.7 F 97.8 F Pulse Rate 66 62 67 Respiratory 18 14 16 Rate Blood Pressure 124/63 106/52 L 152/91 O2 Sat by Pulse Oximetry (%) 09/10/18 09/10/18 09/11/18 20:46 20:48 01:51 Temperature 97.4 F L 97.4 F L Pulse Rate 67 72 Respiratory 14 18 Rate Blood Pressure 141/84 126/70 O2 Sat by Pulse 97 Oximetry (%) 09/11/18 09/11/18 06:00 09:00 Temperature 97.6 F Pulse Rate 81 Respiratory 18 18 Rate Blood Pressure 139/64 O2 Sat by Pulse 97 Oximetry (%) Current Medications Generic Name Dose Route Start Last Admin Trade Name Freq PRN Reason Stop Dose Admin Apixaban 5 mg 09/04/18 11:10 09/11/18 09:33 Eliquis - PO 5 mg BID [facility] Administration Aspirin 81 mg 09/04/18 10:00 09/11/18 09:33 Ecotrin - PO 81 mg DAILY [facility] Administration Carvedilol 25 mg 09/04/18 11:06 09/11/18 09:33 Coreg - PO 25 mg BID [facility] Administration Furosemide 80 mg 09/09/18 14:00 09/11/18 06:19 Lasix Injection - IVPUSH 80 mg BID@0600,1400 [facility] Administration Hydralazine HCl 25 mg 09/04/18 10:00 09/11/18 09:33 Apresoline - PO 25 mg BID [facility] Administration Insulin Detemir 12 units 09/04/18 07:00 09/11/18 06:22 Levemir Vial SQ 12 unit DAILY@0700 [facility] Administration Pantoprazole Sodium 20 mg 09/04/18 10:00 09/11/18 09:33 Protonix - PO 20 mg DAILY [facility] Administration Rosuvastatin Calcium 20 mg 09/04/18 22:00 09/10/18 21:17 Crestor - PO 20 mg HS [facility] Administration Laboratory Results - last 24 hr 09/10/18 09/10/18 09/11/18 16:37 21:15 06:21 WBC RBC Hgb Hct MCV MCH MCHC RDW Plt Count MPV Sodium Potassium Chloride Carbon Dioxide Anion Gap BUN Creatinine Creat Clearance w eGFR POC Glucometer 182 143 139 Random Glucose Calcium 09/11/18 09/11/18 06:30 06:30 WBC 5.5 RBC 4.62 Hgb 13.1 Hct 38.3 MCV 82.8 MCH 28.4 MCHC 34.2 RDW 16.4 H Plt Count 198 MPV 8.6 Sodium 140 Potassium 3.4 L Chloride 103 Carbon Dioxide 32 Anion Gap 5 L BUN 39 H Creatinine 2.4 H Creat Clearance w eGFR 27.06 POC Glucometer Random Glucose 137 H Calcium 8.1 L s1 S2 irregular Lungs decreased breath sounds B/L abd- soft, NT edema++ decreased PLAN Lasix BID- increased to 80mg iv bid replace potassium monitor renal function- improving weight decreased 167 lbs-->165lbs Baseline around 1.9-2 Hold off ACEI /ARB for now dc planning- pt states he doesnt have med coverage till Sep 20 Problem List - Problems (1) Acute kidney injury superimposed on CKD Code(s): N17.9 - ACUTE KIDNEY FAILURE, UNSPECIFIED; N18.9 - CHRONIC KIDNEY DISEASE, UNSPECIFIED (2) Afib Code(s): I48.91 - UNSPECIFIED ATRIAL FIBRILLATION Qualifiers: Atrial fibrillation type: unspecified Qualified Code(s): I48.91 - Unspecified atrial fibrillation (3) Shortness of breath Code(s): R06.02 - SHORTNESS OF BREATH (4) Diabetes mellitus, insulin dependent (IDDM), uncontrolled Code(s): E10.65 - TYPE 1 DIABETES MELLITUS WITH HYPERGLYCEMIA (5) HTN (hypertension) Code(s): I10 - ESSENTIAL (PRIMARY) HYPERTENSION Qualifiers: Hypertension type: renovascular hypertension Qualified Code(s): I15.0 - Renovascular hypertension (6) Systolic CHF, acute on chronic Code(s): I50.23 - ACUTE ON CHRONIC SYSTOLIC (CONGESTIVE) HEART FAILURE
--- NOTE | 2018-09-11 09:54 | PN ---
Progress Note (short form) - Note Progress Note: s: edema improving. no sob, cp, dizziness. Current Medications Apixaban (Eliquis -) 5 mg PO BID [facility] Last Admin: 09/11/18 09:33 Dose: 5 mg Aspirin (Ecotrin -) 81 mg PO DAILY [facility] Last Admin: 09/11/18 09:33 Dose: 81 mg Carvedilol (Coreg -) 25 mg PO BID [facility] Last Admin: 09/11/18 09:33 Dose: 25 mg Furosemide (Lasix Injection -) 80 mg IVPUSH BID@0600,1400 [facility] Last Admin: 09/11/18 06:19 Dose: 80 mg Hydralazine HCl (Apresoline -) 25 mg PO BID [facility] Last Admin: 09/11/18 09:33 Dose: 25 mg Insulin Detemir (Levemir Vial) 12 units SQ DAILY@0700 [facility] Last Admin: 09/11/18 06:22 Dose: 12 unit Pantoprazole Sodium (Protonix -) 20 mg PO DAILY [facility] Last Admin: 09/11/18 09:33 Dose: 20 mg Rosuvastatin Calcium (Crestor -) 20 mg PO HS [facility] Last Admin: 09/10/18 21:17 Dose: 20 mg Vital Signs Period Temp Pulse Resp BP Sys/Beckford Pulse Ox Last 24 Hr 97.4 F-98.4 F 62-81 14-18 106-152/52-91 97 Constitutional: Yes: No Distress, Calm Eyes: No: Sclera Icterus HENT: No: Nasal Congestion Cardiovascular: Yes: Pulse Irregular, S1, S2, Other (PMI non diplaced). No: JVD (in chair), Gallop, Murmur Respiratory: Yes: CTA Bilaterally. No: Accessory Muscle Use, Rales, Wheezes Gastrointestinal: Yes: Normal Bowel Sounds, Soft. No: Tenderness Musculoskeletal: Yes: Other (No kyphosis) Extremities: No: Cold Edema: Yes (2+ pretib) Integumentary: No: Jaundice Neurological: Yes: Alert, Oriented (x3) Psychiatric: No: Agitated Assessment/Plan EKG: afib, LVH with repol abnormality CXR: mild congestion Echo 08/2018: sev dec lvef, global hk, rv tds, mary, IASA, sev mr/tr, rvsp 40-50 Echo 01/2016: Mild LV dilation. Mild HK of basal inferior wall. Normal overall LVEF. Nl RV. Severe LAE. Mild RICARDO. Moderate to severe MR. Mild-mod TR. MPI 2017: 5 min (96% MPHR). non-diagnostic ECG. large region of inferolateral scar with mild vibha-infarct ischemia. IL akinesis, EF 35% tele: AF, good HR Acute on chronic systolic HF -discrepant EF findings on past echoes (normal) vs MPIs (35% as of 2017) -echo here severe LV syst dysfunction, with severe MR/TR, mild-mod pulm HTN - has not taken meds in over a year - BNP >9000 (low GFR). + JVD on exam per notes. CXR mildly congested - receiving lasix 40 IV bid here - cont coreg, hydralazine. no BRUCE/ARB in setting of CKD - unknown dry weight (last saw us 2016). pt says usually 160-165 at baseline. - 2/4: orthopnea and cough resolved. signif LE swelling persists. notes signif UOP to lasix. wt has not come down (consistently 168-170). bun rising, creat stable. increase lasix to 80 IV BID. reassess in AM - 2/5: Cr and weight decreasing, edema improving will continue lasix 80 mg IV BID, monitor Cr, lytes, daily standing weights - 2/6 Cr and weight down, edema improved. no dyspnea/orthopnea. transition to PO lasix 80 mg BID. advised to follow up with Dr. Cochran in 1-2 weeks Afib - rate ok on coreg - cont eliquis Elevated trop - indeterminate range, flat trend, EKG no ischemic changes, less likely ACS - likely demand ischemia in setting of CHF exac HTN - not compliant with meds at home - well controlled here - cont current meds HLD -LDL 264, total cholesterol 363 - was not taking statin as prescribed -restarted rosuvastatin here CAD -h/o s/p MN with 3 stents 2015 (to LCx, OM1 and OM2) - cont aspirin, statin DEVORAH on CKD - nephrology consulted - baseline 1.8-2.4 - stable here DM - manage per primary RUTHANN - refuses CPAP
[2018-09-11] MEDS ORDERED: POTASSIUM CHLORIDE TABS 20 MEQ TABLET.ER (FP) PO ONE (10:45)
--- NOTE | 2018-09-11 11:39 | PN ---
Progress Note (short form) - Note Progress Note: Renal follow up for DEVORAH/CKD Pt seen and examined at the bedside feels better no sob or crook legs remain swollen but is able to ambulate making urine Vital Signs Temperature 97.6 F 09/11/18 06:00 Pulse Rate 81 09/11/18 06:00 Respiratory Rate 18 09/11/18 09:00 Blood Pressure 139/64 09/11/18 06:00 O2 Sat by Pulse Oximetry (%) 97 09/11/18 09:00 Intake & Output 09/08/18 09/09/18 09/10/18 09/11/18 23:59 23:59 23:59 23:59 Intake Total 600 1520 1280 610 Output Total 1800 Balance 600 -280 1280 610 Weight 76.385 kg 77.111 kg 75.75 kg 74.956 kg NAD neck supple, no JVD RRR, no M/R CTA, no rales soft NT/ND, no rebound or guarding + edema in LE CBC, BMP 09/11/18 06:30 09/11/18 06:30 Current Medications Apixaban (Eliquis -) 5 mg PO BID [facility] Last Admin: 09/11/18 09:33 Dose: 5 mg Aspirin (Ecotrin -) 81 mg PO DAILY [facility] Last Admin: 09/11/18 09:33 Dose: 81 mg Carvedilol (Coreg -) 25 mg PO BID [facility] Last Admin: 09/11/18 09:33 Dose: 25 mg Furosemide (Lasix Injection -) 80 mg IVPUSH BID@0600,1400 [facility] Last Admin: 09/11/18 06:19 Dose: 80 mg Hydralazine HCl (Apresoline -) 25 mg PO BID [facility] Last Admin: 09/11/18 09:33 Dose: 25 mg Insulin Detemir (Levemir Vial) 12 units SQ DAILY@0700 [facility] Last Admin: 09/11/18 06:22 Dose: 12 unit Pantoprazole Sodium (Protonix -) 20 mg PO DAILY [facility] Last Admin: 09/11/18 09:33 Dose: 20 mg Rosuvastatin Calcium (Crestor -) 20 mg PO HS [facility] Last Admin: 09/10/18 21:17 Dose: 20 mg 68 year old gentleman with hx of Afib on Eilquis, CAD s/p PCI, CHF, HTN, DM, Sleep Apnea who presented with increasing sob and leg swelling and to have DEVORAH on CKD in setting of fluid overload #DEVORAH on CKD in setting of fluid overload r/o Cardio-renal syndrome vs progressive CKD #CHF exacerbation #Hypertension #Dm on insulin Renal function stable can be discharged home on Lasix 80mg BID maintain low salt diet continue Coreg can d/c hydralazine as BP is well within goal needs follow up with renal and cardiology as a outpatient discharge planning as per primary rEic Greenfield DO
--- NOTE | 2018-09-11 12:05 | DS ---
Physical Examination Vital Signs: Vital Signs Temperature 97.6 F 09/11/18 06:00 Pulse Rate 81 09/11/18 06:00 Respiratory Rate 18 09/11/18 09:00 Blood Pressure 139/64 09/11/18 06:00 O2 Sat by Pulse Oximetry (%) 97 09/11/18 09:00 Labs: CBC, BMP 09/11/18 06:30 09/11/18 06:30 Discharge Summary Reason For Visit: ELEVATED TROPONIN I LEVEL SHORTNESS OF BREATH ATRI Current Active Problems Acute kidney injury superimposed on CKD (Acute) Afib (Acute) Shortness of breath (Acute) Systolic CHF, acute on chronic (Acute) Troponin I above reference range (Acute) Hospital Course: see progress note Condition: Improved - Instructions Referrals: Hamilton Cochran MD [Staff Physician] - Luis Alberto Harding MD [Staff Physician] - Eric Greenfield MD [Staff Physician] - Disposition: HOME - Home Medications Comprehensive Discharge Medication List: Ambulatory Orders Apixaban [Eliquis] 2.5 mg PO BID #60 tablet 09/11/18 Aspirin [Aspirin EC] 81 mg PO DAILY #30 tablet. 09/11/18 Carvedilol [Coreg -] 25 mg PO BID #60 tablet 09/11/18 Furosemide [Lasix -] 80 mg PO BID@0600,1400 #60 tablet 09/11/18 Insulin Glargine,Hum.rec.anlog [Lantus (10mL VIAL) -] 12 units SQ DAILY #1 vial 09/11/18 Syring-Needl,Disp,Insul,0.3 ml [Insulin Syringe] 1 each [facility] DAILY #30 disp.syrin 09/11/18
[2018-09-11] MEDS ORDERED: FUROSEMIDE 40 MG TABLET (FP) PO SCH (14:00)
[2018-09-11 15:32] VITALS: BMI 25.8
== END 2018-09-11 14:09 | disposition home or self-care (01) | DRG 682 ==
LOC: JER 19:47 → JERBED 21:35 → J4S 09-04 23:30
PROVIDERS: ADMIT Internal Medicine; ATTEND Internal Medicine
DX: N17.9 Acute kidney failure, unspecified (principal); I50.23 Acute on chronic systolic (congestive) heart failure; I13.0 Hypertensive heart and chronic kidney disease with heart failure and stage 1 through stage 4 chronic kidney disease, or unspecified chronic kidney disease; E11.22 Type 2 diabetes mellitus with diabetic chronic kidney disease; E11.65 Type 2 diabetes mellitus with hyperglycemia; I48.2 Chronic atrial fibrillation; N18.3 Chronic kidney disease, stage 3 (moderate); I34.0 Nonrheumatic mitral (valve) insufficiency; I36.1 Nonrheumatic tricuspid (valve) insufficiency; I27.20 Pulmonary hypertension, unspecified; I25.10 Atherosclerotic heart disease of native coronary artery without angina pectoris; I25.2 Old myocardial infarction; Z79.4 Long term (current) use of insulin; G47.33 Obstructive sleep apnea (adult) (pediatric); E78.5 Hyperlipidemia, unspecified; Z79.01 Long term (current) use of anticoagulants; Z95.5 Presence of coronary angioplasty implant and graft; Z91.14 Patient's other noncompliance with medication regimen; R74.8 Abnormal levels of other serum enzymes; R32 Unspecified urinary incontinence; R31.9 Hematuria, unspecified
CPT/HCPCS: 36415; 71045-TC-FY; 76705-TC; 80048; 80053; 80061; 82550; 82553; 82570; 82962; 83036; 83690; 83721; 83735; 83880; 84100; 84156; 84484; 84540; 85025; 85027; 85610; 86850; 86900; 86901; 93005; 93010; 93306-TC; 99285-25

== ENCOUNTER 2021-03-11 22:32 | Inpatient (IN) | payer OTHER ==
[2021-03-12 00:41] LABS: BASO % 2.1 % (0-2.0); EOS % 0.1 % (0-4.5); HEMATOCRIT 17.1 % (35.4-49); MCHC 31.1 g/dl (32.0-35.9); MEAN PLT VOLUME 8.1 fl (7.5-11.1); MONO % 6.9 % (3.8-10.2); NEUT % 80.9 % (42.8-82.8); PLATELET COUNT 281 10^3/uL (134-434); RBC 2.68 M/mm3 (4.00-5.60); RDW 18.9 % (11.9-15.9); WHITE BLOOD COUNT 6.6 K/mm3 (4.0-10.0)
[2021-03-12 00:42] LABS: MCH 19.9 pg (25.7-33.7)
[2021-03-12 00:43] LABS: HEMOGLOBIN 5.3 GM/dL (11.7-16.9)
[2021-03-12 00:47] LABS: INR 1.78 (0.83-1.09); PROTHROMBIN TIME (PATIENT) 21.2 SEC (9.7-13.0)
[2021-03-12 00:50] LABS: ACTIVATED PTT 31.1 SECONDS (25.2-36.5)
[2021-03-12 01:01] LABS: CALCIUM 9.2 mg/dL (8.5-10.1)
[2021-03-12 01:02] LABS: ALBUMIN 3.1 g/dl (3.4-5.0); BLOOD UREA NITROGEN 75.8 mg/dL (7-18)
[2021-03-12 01:05] LABS: CREATININE 3.8 mg/dL (0.55-1.3)
[2021-03-12 01:07] LABS: BILIRUBIN,TOTAL 0.7 mg/dL (0.2-1); TOT PROT 6.8 g/dl (6.4-8.2)
[2021-03-12 01:10] LABS: N-TERMINAL BNP 2787.3 pg/ml (5-125)
[2021-03-12 05:54] LABS: ANISOCYTOSIS 1+; MACROCYTOSIS 1+; OVALOCYTE 1+; PLATELET ESTIMATE NORMAL
[2021-03-12] MEDS: FUROSEMIDE 40 MG TABLET (FP) PO SCH ×2 (07:00→15:16)
[2021-03-12] MEDS ORDERED: FUROSEMIDE 40 MG TABLET (FP) ONE (07:03)
[2021-03-12] MEDS: SEVELAMER CARBONATE 800 MG TAB (FP) PO SCH ×3 (08:00→18:00)
[2021-03-12] MEDS: NIFEdipine E.R. 90 MG TABLET PO SCH (10:00)
[2021-03-12] MEDS: CARVEDILOL 3.125 MG TABLET (FP) PO SCH ×2 (10:00→22:01)
[2021-03-12] MEDS ORDERED: PANTOPRAZOLE SODIUM 40 MG VIAL IVPUSH SCH (11:00)
[2021-03-12] MEDS ORDERED: MINERAL OIL ENEMA 133 ML ENEMA PR ONE (11:59)
[2021-03-12] MEDS: PANTOPRAZOLE SODIUM 80 MG in SODIUM CHLORIDE 100 ML IVPB SCH ×2 (12:11→23:44)
[2021-03-12] MEDS ORDERED: PANTOPRAZOLE SODIUM 40 MG VIAL ONE (12:15)
[2021-03-12 13:22] LABS: BASO % 1.1 % (0-2.0); HEMATOCRIT 24.5 % (35.4-49); HEMOGLOBIN 8.2 GM/dL (11.7-16.9); LYMPH % 10.4 % (8-40); MCH 24.4 pg (25.7-33.7); MCHC 33.3 g/dl (32.0-35.9); MEAN CELL VOLUME 73.3 fl (80-96); MEAN PLT VOLUME 8.1 fl (7.5-11.1); MONO % 14.9 % (3.8-10.2); NEUT % 73.6 % (42.8-82.8); PLATELET COUNT 225 10^3/uL (134-434); RBC 3.34 M/mm3 (4.00-5.60); RDW 25.5 % (11.9-15.9); WHITE BLOOD COUNT 7.7 K/mm3 (4.0-10.0)
[2021-03-12 13:49] LABS: CALCIUM 9.1 mg/dL (8.5-10.1)
[2021-03-12 13:50] LABS: BLOOD UREA NITROGEN 72.3 mg/dL (7-18)
[2021-03-12 13:53] LABS: CREATININE 3.3 mg/dL (0.55-1.3)
[2021-03-12] MEDS: POLYETHYLENE GLYCOL (HEALTHYLAX) 3350 17 GM PACKET PO SCH ×2 (15:15→22:02)
[2021-03-12] MEDS: MUPIROCIN 2% TOPICAL OINTMENT FOR DECOLONIZATION NS SCH ×2 (17:21→22:02)
[2021-03-12] MEDS: INSULIN SLIDING SCALE (NOVOLOG) 1 VIAL SQ SCH ×3 (18:31→18:35)
[2021-03-12 19:42] LABS: BASO % 1.4 % (0-2.0); EOS % 0.6 % (0-4.5); HEMATOCRIT 27.4 % (35.4-49); HEMOGLOBIN 8.9 GM/dL (11.7-16.9); LYMPH % 11.6 % (8-40); MCH 23.6 pg (25.7-33.7); MCHC 32.5 g/dl (32.0-35.9); MEAN CELL VOLUME 72.6 fl (80-96); MEAN PLT VOLUME 7.6 fl (7.5-11.1); MONO % 11.8 % (3.8-10.2); NEUT % 74.6 % (42.8-82.8); PLATELET COUNT 241 10^3/uL (134-434); RBC 3.77 M/mm3 (4.00-5.60); RDW 25.2 % (11.9-15.9); WHITE BLOOD COUNT 7.8 K/mm3 (4.0-10.0)
[2021-03-12] MEDS ORDERED: PT OWN MED DRAWER 7, Y5N ONE (21:05)
[2021-03-12] MEDS: ATORVASTATIN CA 80 MG TABLET (FP) PO SCH (22:01)
[2021-03-12] MEDS: CHLORHEXIDINE GLUCONATE 4% CLEANSER FOR DECOLONIZATION TP SCH (22:02)
[2021-03-13] MEDS: PANTOPRAZOLE SODIUM 40 MG VIAL IVPUSH SCH ×2 (00:28→09:12)
[2021-03-13] MEDS: INSULIN SLIDING SCALE (NOVOLOG) 1 VIAL SQ SCH ×4 (06:02→21:53)
[2021-03-13] MEDS: POLYETHYLENE GLYCOL (HEALTHYLAX) 3350 17 GM PACKET PO SCH ×3 (06:02→21:41)
[2021-03-13] MEDS: FUROSEMIDE 40 MG TABLET (FP) PO SCH (06:02)
[2021-03-13 06:50] LABS: BASO % 0.7 % (0-2.0); EOS % 1.2 % (0-4.5); HEMOGLOBIN 8.1 GM/dL (11.7-16.9); LYMPH % 13.6 % (8-40); MCH 23.5 pg (25.7-33.7); MCHC 32.5 g/dl (32.0-35.9); MEAN CELL VOLUME 72.4 fl (80-96); MEAN PLT VOLUME 7.9 fl (7.5-11.1); MONO % 13.8 % (3.8-10.2); NEUT % 70.7 % (42.8-82.8); PLATELET COUNT 217 10^3/uL (134-434); RBC 3.46 M/mm3 (4.00-5.60); RDW 24.4 % (11.9-15.9); WHITE BLOOD COUNT 7.5 K/mm3 (4.0-10.0)
[2021-03-13 07:10] LABS: ALBUMIN 2.7 g/dl (3.4-5.0); BLOOD UREA NITROGEN 65.2 mg/dL (7-18); MAGNESIUM 2.1 mg/dL (1.8-2.4)
[2021-03-13 07:13] LABS: CREATININE 3.2 mg/dL (0.55-1.3); PHOSPHOROUS 3.6 mg/dL (2.5-4.9)
[2021-03-13 07:14] LABS: TOT PROT 5.9 g/dl (6.4-8.2)
[2021-03-13] MEDS: SEVELAMER CARBONATE 800 MG TAB (FP) PO SCH (09:00)
[2021-03-13] MEDS: MUPIROCIN 2% TOPICAL OINTMENT FOR DECOLONIZATION NS SCH ×2 (09:11→21:40)
[2021-03-13] MEDS: CARVEDILOL 3.125 MG TABLET (FP) PO SCH ×2 (09:11→21:40)
[2021-03-13] MEDS: NIFEdipine E.R. 90 MG TABLET PO SCH (09:12)
[2021-03-13] MEDS: PANTOPRAZOLE SODIUM 80 MG in SODIUM CHLORIDE 100 ML IVPB SCH ×2 (11:54→21:03)
[2021-03-13 17:52] LABS: BASO % 0.5 % (0-2.0); HEMATOCRIT 24.4 % (35.4-49); LYMPH % 12.6 % (8-40); MCH 23.5 pg (25.7-33.7); MCHC 32.9 g/dl (32.0-35.9); MEAN CELL VOLUME 71.4 fl (80-96); MEAN PLT VOLUME 7.8 fl (7.5-11.1); NEUT % 71.9 % (42.8-82.8); PLATELET COUNT 225 10^3/uL (134-434); RBC 3.42 M/mm3 (4.00-5.60); RDW 24.9 % (11.9-15.9); WHITE BLOOD COUNT 7.1 K/mm3 (4.0-10.0)
[2021-03-13] MEDS: ATORVASTATIN CA 80 MG TABLET (FP) PO SCH (21:40)
[2021-03-13] MEDS: CHLORHEXIDINE GLUCONATE 4% CLEANSER FOR DECOLONIZATION TP SCH (21:41)
[2021-03-14] MEDS: POLYETHYLENE GLYCOL (HEALTHYLAX) 3350 17 GM PACKET PO SCH ×3 (06:50→21:17)
[2021-03-14] MEDS: INSULIN SLIDING SCALE (NOVOLOG) 1 VIAL SQ SCH ×4 (06:51→21:17)
[2021-03-14 07:50] LABS: HEMATOCRIT 24.7 % (35.4-49); HEMOGLOBIN 8.1 GM/dL (11.7-16.9); MCH 23.8 pg (25.7-33.7); MCHC 32.8 g/dl (32.0-35.9); MEAN CELL VOLUME 72.5 fl (80-96); MEAN PLT VOLUME 8.2 fl (7.5-11.1); PLATELET COUNT 222 10^3/uL (134-434); RBC 3.41 M/mm3 (4.00-5.60); RDW 25.1 % (11.9-15.9); WHITE BLOOD COUNT 6.8 K/mm3 (4.0-10.0)
[2021-03-14 07:55] LABS: INR 1.33 (0.83-1.09)
[2021-03-14 07:58] LABS: ACTIVATED PTT 28.9 SECONDS (25.2-36.5)
[2021-03-14 08:18] LABS: ALBUMIN 2.6 g/dl (3.4-5.0); BLOOD UREA NITROGEN 50.6 mg/dL (7-18); CALCIUM 8.5 mg/dL (8.5-10.1); MAGNESIUM 1.9 mg/dL (1.8-2.4)
[2021-03-14 08:22] LABS: PHOSPHOROUS 2.8 mg/dL (2.5-4.9); TOT PROT 5.7 g/dl (6.4-8.2)
[2021-03-14] MEDS: MUPIROCIN 2% TOPICAL OINTMENT FOR DECOLONIZATION NS SCH ×2 (09:01→21:17)
[2021-03-14] MEDS: CARVEDILOL 3.125 MG TABLET (FP) PO SCH (09:01)
[2021-03-14] MEDS: PANTOPRAZOLE SODIUM 80 MG in SODIUM CHLORIDE 100 ML IVPB SCH ×2 (09:01→18:11)
[2021-03-14] MEDS: NIFEdipine E.R. 90 MG TABLET PO SCH (09:02)
[2021-03-14 15:22] VITALS: BMI 21.9
[2021-03-14] MEDS: CARVEDILOL 6.25 MG TABLET (FP) PO SCH (21:17)
[2021-03-14] MEDS: CHLORHEXIDINE GLUCONATE 4% CLEANSER FOR DECOLONIZATION TP SCH (21:17)
[2021-03-14] MEDS: ATORVASTATIN CA 80 MG TABLET (FP) PO SCH (21:17)
[2021-03-15] MEDS: PANTOPRAZOLE SODIUM 80 MG in SODIUM CHLORIDE 100 ML IVPB SCH ×3 (04:39→23:02)
[2021-03-15] MEDS: POLYETHYLENE GLYCOL (HEALTHYLAX) 3350 17 GM PACKET PO SCH ×3 (06:27→21:16)
[2021-03-15] MEDS: INSULIN SLIDING SCALE (NOVOLOG) 1 VIAL SQ SCH ×4 (06:27→21:17)
[2021-03-15 07:02] LABS: BASO % 0.2 % (0-2.0); EOS % 2.7 % (0-4.5); HEMATOCRIT 22.9 % (35.4-49); HEMOGLOBIN 7.5 GM/dL (11.7-16.9); LYMPH % 11.2 % (8-40); MCH 23.5 pg (25.7-33.7); MCHC 32.7 g/dl (32.0-35.9); MEAN CELL VOLUME 71.7 fl (80-96); MEAN PLT VOLUME 8.2 fl (7.5-11.1); MONO % 12.9 % (3.8-10.2); PLATELET COUNT 235 10^3/uL (134-434); RDW 25.3 % (11.9-15.9); WHITE BLOOD COUNT 7.7 K/mm3 (4.0-10.0)
[2021-03-15 07:27] LABS: CALCIUM 8.3 mg/dL (8.5-10.1)
[2021-03-15 07:31] LABS: PHOSPHOROUS 3.4 mg/dL (2.5-4.9)
[2021-03-15 07:32] LABS: BLOOD UREA NITROGEN 41.7 mg/dL (7-18)
[2021-03-15 07:36] LABS: CREATININE 3.1 mg/dL (0.55-1.3)
[2021-03-15 08:50] LABS: ANISOCYTOSIS 2+; MACROCYTOSIS 1+; OVALOCYTE 1+; PLATELET ESTIMATE NORMAL
[2021-03-15] MEDS: NIFEdipine E.R. 90 MG TABLET PO SCH (09:12)
[2021-03-15] MEDS: CARVEDILOL 6.25 MG TABLET (FP) PO SCH ×2 (09:12→21:16)
[2021-03-15] MEDS ORDERED: POTASSIUM CHLORIDE TABS 20 MEQ TABLET.ER (FP) PO ONE (11:30)
[2021-03-15] MEDS ORDERED: PEG 3350/NA SULF BICARB CL/KCL 4000 ML SOLN.RECON PO ONE (12:00)
[2021-03-15] MEDS ORDERED: POTASSIUM CHLORIDE ORAL LIQUID 20 MEQ/15 ML PO ONE (15:00)
[2021-03-15] MEDS ORDERED: PT OWN MED DRAWER 7, Y5N ONE (17:36)
[2021-03-15] MEDS ORDERED: BISACODYL 5 MG TABLET.DR (FP) PO ONE (20:00)
[2021-03-15] MEDS ORDERED: INSULIN (NOVOLOG) ASPART 100 UNITS/ML 10ML VIAL ONE (21:09)
[2021-03-15] MEDS: ATORVASTATIN CA 80 MG TABLET (FP) PO SCH (21:17)
[2021-03-16 06:52] LABS: BASO % 0.5 % (0-2.0); EOS % 1.7 % (0-4.5); HEMATOCRIT 26.3 % (35.4-49); HEMOGLOBIN 8.6 GM/dL (11.7-16.9); LYMPH % 9.8 % (8-40); MCH 24.1 pg (25.7-33.7); MCHC 32.7 g/dl (32.0-35.9); MEAN CELL VOLUME 73.5 fl (80-96); MEAN PLT VOLUME 8.2 fl (7.5-11.1); MONO % 12.5 % (3.8-10.2); NEUT % 75.5 % (42.8-82.8); PLATELET COUNT 222 10^3/uL (134-434); RBC 3.58 M/mm3 (4.00-5.60); RDW 25.3 % (11.9-15.9); WHITE BLOOD COUNT 9.7 K/mm3 (4.0-10.0)
[2021-03-16] MEDS: POLYETHYLENE GLYCOL (HEALTHYLAX) 3350 17 GM PACKET PO SCH ×3 (06:56→21:41)
[2021-03-16] MEDS: INSULIN SLIDING SCALE (NOVOLOG) 1 VIAL SQ SCH ×4 (06:57→21:46)
[2021-03-16 06:59] LABS: INR 1.48 (0.83-1.09); PROTHROMBIN TIME (PATIENT) 17.7 SEC (9.7-13.0)
[2021-03-16 07:16] LABS: BLOOD UREA NITROGEN 41.7 mg/dL (7-18); CALCIUM 8.3 mg/dL (8.5-10.1)
[2021-03-16 07:21] LABS: CREATININE 3.3 mg/dL (0.55-1.3); PHOSPHOROUS 3.1 mg/dL (2.5-4.9)
[2021-03-16] MEDS: PANTOPRAZOLE SODIUM 80 MG in SODIUM CHLORIDE 100 ML IVPB SCH (09:13)
[2021-03-16] MEDS: CARVEDILOL 6.25 MG TABLET (FP) PO SCH ×2 (10:21→21:41)
[2021-03-16] MEDS: NIFEdipine E.R. 90 MG TABLET PO SCH (10:21)
[2021-03-16] MEDS: KCL 10 MEQ IVPB 10 MEQ/100 ML INFUS.BAG IVPB SCH ×3 (11:19→14:07)
[2021-03-16] MEDS ORDERED: PEG 3350/NA SULF BICARB CL/KCL 4000 ML SOLN.RECON PO ONE (16:00)
[2021-03-16] MEDS ORDERED: BISACODYL 5 MG TABLET.DR (FP) PO ONE (17:00)
[2021-03-16] MEDS ORDERED: PT OWN MED DRAWER 7, Y5N ONE (21:35)
[2021-03-16] MEDS: ATORVASTATIN CA 80 MG TABLET (FP) PO SCH (21:41)
[2021-03-17] MEDS: POLYETHYLENE GLYCOL (HEALTHYLAX) 3350 17 GM PACKET PO SCH ×3 (06:21→21:41)
[2021-03-17] MEDS: INSULIN SLIDING SCALE (NOVOLOG) 1 VIAL SQ SCH ×4 (06:42→21:44)
[2021-03-17] MEDS: NIFEdipine E.R. 90 MG TABLET PO SCH (09:35)
[2021-03-17] MEDS: CARVEDILOL 6.25 MG TABLET (FP) PO SCH ×2 (09:35→21:41)
[2021-03-17] MEDS ORDERED: ETOMIDATE 20 MG/10 ML AMPUL IVPUSH ONE (11:57)
[2021-03-17] MEDS: ATORVASTATIN CA 80 MG TABLET (FP) PO SCH (21:41)
[2021-03-18] MEDS ORDERED: ACETAMINOPHEN 325 MG TABLET (FP) PO ONE (02:35)
[2021-03-18] MEDS ORDERED: ACETAMINOPHEN 325 MG TABLET (FP) PO PRN (02:36)
[2021-03-18] MEDS: POLYETHYLENE GLYCOL (HEALTHYLAX) 3350 17 GM PACKET PO SCH (06:46)
[2021-03-18] MEDS: INSULIN SLIDING SCALE (NOVOLOG) 1 VIAL SQ SCH ×4 (06:46→22:45)
[2021-03-18 07:19] LABS: HEMATOCRIT 27.9 % (35.4-49); HEMOGLOBIN 9.2 GM/dL (11.7-16.9); MCH 24.2 pg (25.7-33.7); MEAN CELL VOLUME 73.3 fl (80-96); PLATELET COUNT 282 10^3/uL (134-434); RDW 24.6 % (11.9-15.9); WHITE BLOOD COUNT 7.8 K/mm3 (4.0-10.0)
[2021-03-18 07:36] LABS: CALCIUM 8.2 mg/dL (8.5-10.1)
[2021-03-18 07:37] LABS: ALBUMIN 2.3 g/dl (3.4-5.0); BLOOD UREA NITROGEN 28.3 mg/dL (7-18); MAGNESIUM 1.9 mg/dL (1.8-2.4)
[2021-03-18 07:40] LABS: PHOSPHOROUS 3.7 mg/dL (2.5-4.9)
[2021-03-18 07:41] LABS: BILIRUBIN,TOTAL 1.8 mg/dL (0.2-1)
[2021-03-18 07:42] LABS: TOT PROT 5.4 g/dl (6.4-8.2)
[2021-03-18] MEDS: NIFEdipine E.R. 90 MG TABLET PO SCH (09:45)
[2021-03-18] MEDS: CARVEDILOL 6.25 MG TABLET (FP) PO SCH ×2 (09:45→22:45)
[2021-03-18] MEDS ORDERED: INSULIN (NOVOLOG) ASPART 100 UNITS/ML 10ML VIAL ONE (11:40)
[2021-03-18] MEDS ORDERED: HEPARIN NA (PORCINE) 5,000 UNITS/ML 1ML VIAL IVPUSH PRN ×2 (12:27)
[2021-03-18] MEDS ORDERED: PT OWN MED DRAWER 7, Y5N ONE (13:16)
[2021-03-18] MEDS: POTASSIUM CHLORIDE TABS 20 MEQ TABLET.ER (FP) PO SCH ×2 (13:27→22:45)
[2021-03-18] MEDS: HEPARIN - 25,000 UNIT in SODIUM CHLORIDE 495 ML IV SCH (13:32)
[2021-03-18] MEDS ORDERED: RIVAROXABAN 15 MG TABLET PO SCH (18:00)
[2021-03-18] MEDS: ATORVASTATIN CA 80 MG TABLET (FP) PO SCH (22:45)
[2021-03-19] MEDS: INSULIN SLIDING SCALE (NOVOLOG) 1 VIAL SQ SCH ×4 (07:29→21:46)
[2021-03-19 07:33] LABS: BASO % 0.7 % (0-2.0); EOS % 3.3 % (0-4.5); HEMATOCRIT 25.1 % (35.4-49); HEMOGLOBIN 8.4 GM/dL (11.7-16.9); LYMPH % 14.8 % (8-40); MCH 24.2 pg (25.7-33.7); MCHC 33.3 g/dl (32.0-35.9); MEAN CELL VOLUME 72.8 fl (80-96); MEAN PLT VOLUME 8.1 fl (7.5-11.1); NEUT % 68.2 % (42.8-82.8); PLATELET COUNT 265 10^3/uL (134-434); RBC 3.45 M/mm3 (4.00-5.60); RDW 24.7 % (11.9-15.9); WHITE BLOOD COUNT 6.6 K/mm3 (4.0-10.0)
[2021-03-19 07:55] LABS: CALCIUM 7.8 mg/dL (8.5-10.1)
[2021-03-19 07:56] LABS: BLOOD UREA NITROGEN 23.5 mg/dL (7-18)
[2021-03-19 07:59] LABS: CREATININE 2.7 mg/dL (0.55-1.3)
[2021-03-19 08:01] LABS: TOT PROT 5.1 g/dl (6.4-8.2)
[2021-03-19 08:50] LABS: ANISOCYTOSIS 3+; MACROCYTOSIS 0; PLATELET ESTIMATE NORMAL
[2021-03-19] MEDS: NIFEdipine E.R. 90 MG TABLET PO SCH (10:20)
[2021-03-19] MEDS: CARVEDILOL 6.25 MG TABLET (FP) PO SCH ×2 (10:20→21:46)
[2021-03-19] MEDS: HEPARIN - 25,000 UNIT in SODIUM CHLORIDE 495 ML IV SCH (17:08)
[2021-03-19] MEDS: ATORVASTATIN CA 80 MG TABLET (FP) PO SCH (21:46)
[2021-03-20 06:41] LABS: HEMATOCRIT 28.3 % (35.4-49); HEMOGLOBIN 9.3 GM/dL (11.7-16.9); MCH 24.3 pg (25.7-33.7); MCHC 32.9 g/dl (32.0-35.9); MEAN CELL VOLUME 73.7 fl (80-96); MEAN PLT VOLUME 8.2 fl (7.5-11.1); PLATELET COUNT 320 10^3/uL (134-434); RBC 3.84 M/mm3 (4.00-5.60); RDW 24.2 % (11.9-15.9); WHITE BLOOD COUNT 7.3 K/mm3 (4.0-10.0)
[2021-03-20] MEDS: INSULIN SLIDING SCALE (NOVOLOG) 1 VIAL SQ SCH ×2 (07:20→10:49)
[2021-03-20 08:11] VITALS: BP 148/69; PULSE 79; TEMP 98.2
[2021-03-20] MEDS: NIFEdipine E.R. 90 MG TABLET PO SCH (09:16)
[2021-03-20] MEDS: CARVEDILOL 6.25 MG TABLET (FP) PO SCH (09:17)
[2021-03-20 10:48] LABS: CALCIUM 8.2 mg/dL (8.5-10.1)
[2021-03-20 10:49] LABS: BLOOD UREA NITROGEN 24.4 mg/dL (7-18); MAGNESIUM 2.1 mg/dL (1.8-2.4)
[2021-03-20 10:52] LABS: CREATININE 2.9 mg/dL (0.55-1.3)
[2021-03-20] MEDS ORDERED: APIXABAN 5 MG TABLET PO SCH (22:00)
== END 2021-03-20 12:52 | disposition home or self-care (01) | DRG 378 ==
LOC: JER 22:32 → JERBED 03-12 01:49 → JICU 03-12 14:50
PROVIDERS: ADMIT Internal Medicine; ATTEND Internal Medicine
PROC: 30233N1 Transfusion of Nonautologous Red Blood Cells into Peripheral Vein, Percutaneous Approach (ICD-10-PCS; 2021-03-12)
PROC: 0DB68ZX Excision of Stomach, Via Natural or Artificial Opening Endoscopic, Diagnostic (ICD-10-PCS; 2021-03-16)
PROC: 0DJD8ZZ Inspection of Lower Intestinal Tract, Via Natural or Artificial Opening Endoscopic (ICD-10-PCS; principal; 2021-03-16 13:15)
PROC: 0DBF8ZX Excision of Right Large Intestine, Via Natural or Artificial Opening Endoscopic, Diagnostic (ICD-10-PCS; 2021-03-17)
PROC: 0DBP8ZX Excision of Rectum, Via Natural or Artificial Opening Endoscopic, Diagnostic (ICD-10-PCS; 2021-03-17)
DX: K92.2 Gastrointestinal hemorrhage, unspecified (principal); K62.6 Ulcer of anus and rectum; N17.9 Acute kidney failure, unspecified; I13.0 Hypertensive heart and chronic kidney disease with heart failure and stage 1 through stage 4 chronic kidney disease, or unspecified chronic kidney disease; I50.22 Chronic systolic (congestive) heart failure; I48.11 Longstanding persistent atrial fibrillation; I69.351 Hemiplegia and hemiparesis following cerebral infarction affecting right dominant side; R64 Cachexia; K92.0 Hematemesis; I25.10 Atherosclerotic heart disease of native coronary artery without angina pectoris; E78.5 Hyperlipidemia, unspecified; G47.30 Sleep apnea, unspecified; K31.9 Disease of stomach and duodenum, unspecified; K59.09 Other constipation; D64.9 Anemia, unspecified; I25.2 Old myocardial infarction; E13.22 Other specified diabetes mellitus with diabetic chronic kidney disease; N18.30 Chronic kidney disease, stage 3 unspecified; Z68.21 Body mass index [BMI] 21.0-21.9, adult; K64.8 Other hemorrhoids; K57.30 Diverticulosis of large intestine without perforation or abscess without bleeding; Z95.5 Presence of coronary angioplasty implant and graft
CPT/HCPCS: 36415; 36430; 71045-TC-FY; 80048; 80053; 82272; 82550; 82962; 83036; 83735; 83880; 84100; 84436; 84443; 84484; 85025; 85027; 85610; 85730; 86850; 86900; 86901; 86922; 88305-TC; 93005; 93010; 97116-GP; 97162-GP; 99285-25; C9803; J1644; P9058; U0003; U0005

== ENCOUNTER 2021-03-26 22:13 | Inpatient (IN) | payer OTHER ==
[2021-03-27 00:54] LABS: BASO % 1.2 % (0-2.0); EOS % 0.3 % (0-4.5); HEMATOCRIT 16.5 % (35.4-49); LYMPH % 12.2 % (8-40); MCHC 31.8 g/dl (32.0-35.9); MEAN CELL VOLUME 72.3 fl (80-96); MEAN PLT VOLUME 7.6 fl (7.5-11.1); MONO % 7.6 % (3.8-10.2); NEUT % 78.7 % (42.8-82.8); PLATELET COUNT 339 10^3/uL (134-434); RBC 2.28 M/mm3 (4.00-5.60); RDW 23.8 % (11.9-15.9); WHITE BLOOD COUNT 7.3 K/mm3 (4.0-10.0)
[2021-03-27 00:55] LABS: HEMOGLOBIN 5.2 GM/dL (11.7-16.9)
[2021-03-27 01:13] LABS: CALCIUM 8.5 mg/dL (8.5-10.1)
[2021-03-27 01:17] LABS: CREATININE 3.5 mg/dL (0.55-1.3)
[2021-03-27 01:18] LABS: BILIRUBIN,TOTAL 0.7 mg/dL (0.2-1); TOT PROT 6.1 g/dl (6.4-8.2)
[2021-03-27 01:31] LABS: ALBUMIN 2.6 g/dl (3.4-5.0); BLOOD UREA NITROGEN 69.6 mg/dL (7-18)
[2021-03-27 01:32] LABS: PH,URINE 6.5 (5.0-8.0); URINE APPEARANCE CLEAR; URINE BILIRUBIN NEGATIVE (NEGATIVE); URINE COLOR YELLOW; URINE GLUCOSE (UA) NEGATIVE (NEGATIVE); URINE KETONE NEGATIVE (NEGATIVE); URINE LEUK ESTERASE NEGATIVE (NEGATIVE); URINE NITRITE NEGATIVE (NEGATIVE); URINE PROTEIN TRACE (NEGATIVE); URINE UROBILINOGEN 0.2 mg/dL (0.2-1.0)
[2021-03-27] MEDS ORDERED: PANTOPRAZOLE SODIUM 40 MG VIAL IVPUSH ONE (03:49)
[2021-03-27] MEDS ORDERED: FUROSEMIDE 40 MG/4 ML INJECTABLE VIAL IVPUSH ONE (03:52)
[2021-03-27] MEDS ORDERED: DEXTROSE 5%-NORMAL SALINE 1,000 ML IV SCH (04:30)
[2021-03-27 05:38] LABS: ANISOCYTOSIS 2+; MACROCYTOSIS 1+; PLATELET ESTIMATE NORMAL; TARGET CELLS 1+
[2021-03-27] MEDS: INSULIN SLIDING SCALE (NOVOLOG) 1 VIAL SQ SCH ×3 (07:18→18:03)
[2021-03-27] MEDS ORDERED: FUROSEMIDE 40 MG/4 ML INJECTABLE VIAL ONE (08:16)
[2021-03-27] MEDS ORDERED: PANTOPRAZOLE SODIUM 40 MG VIAL ONE (08:16)
[2021-03-27] MEDS: PANTOPRAZOLE SODIUM 40 MG VIAL IVPUSH SCH (10:30)
[2021-03-27] MEDS: NIFEdipine E.R. 90 MG TABLET PO SCH (10:30)
[2021-03-27] MEDS: CARVEDILOL 6.25 MG TABLET (FP) PO SCH ×2 (10:30→22:57)
[2021-03-27] MEDS: SEVELAMER CARBONATE 800 MG TAB (FP) PO SCH ×2 (13:44→18:03)
[2021-03-27 20:41] VITALS: BMI 22.4
[2021-03-28] MEDS: INSULIN SLIDING SCALE (NOVOLOG) 1 VIAL SQ SCH ×5 (00:38→23:43)
[2021-03-28 01:20] LABS: EOS % 1.4 % (0-4.5); HEMATOCRIT 23.5 % (35.4-49); LYMPH % 14.5 % (8-40); MCH 25.9 pg (25.7-33.7); MCHC 34.1 g/dl (32.0-35.9); MEAN CELL VOLUME 76.1 fl (80-96); MEAN PLT VOLUME 7.3 fl (7.5-11.1); NEUT % 70.1 % (42.8-82.8); PLATELET COUNT 303 10^3/uL (134-434); RBC 3.09 M/mm3 (4.00-5.60); WHITE BLOOD COUNT 6.3 K/mm3 (4.0-10.0)
[2021-03-28 01:45] LABS: ALBUMIN 2.4 g/dl (3.4-5.0); CALCIUM 8.1 mg/dL (8.5-10.1)
[2021-03-28 01:49] LABS: CREATININE 3.2 mg/dL (0.55-1.3)
[2021-03-28 01:50] LABS: BILIRUBIN,TOTAL 1.9 mg/dL (0.2-1); TOT PROT 5.6 g/dl (6.4-8.2)
[2021-03-28 05:42] LABS: MAGNESIUM 2.2 mg/dL (1.8-2.4)
[2021-03-28] MEDS: SEVELAMER CARBONATE 800 MG TAB (FP) PO SCH ×3 (08:46→18:07)
[2021-03-28] MEDS: CARVEDILOL 6.25 MG TABLET (FP) PO SCH ×2 (09:39→21:45)
[2021-03-28] MEDS: NIFEdipine E.R. 90 MG TABLET PO SCH (09:39)
[2021-03-28] MEDS: PANTOPRAZOLE SODIUM 40 MG VIAL IVPUSH SCH (09:39)
[2021-03-28 10:21] LABS: BASO % 0.7 % (0-2.0); EOS % 2.5 % (0-4.5); HEMATOCRIT 24.2 % (35.4-49); HEMOGLOBIN 8.2 GM/dL (11.7-16.9); LYMPH % 13.9 % (8-40); MCHC 33.7 g/dl (32.0-35.9); MEAN CELL VOLUME 77.2 fl (80-96); MEAN PLT VOLUME 7.8 fl (7.5-11.1); MONO % 11.9 % (3.8-10.2); PLATELET COUNT 326 10^3/uL (134-434); RBC 3.13 M/mm3 (4.00-5.60); RDW 22.2 % (11.9-15.9); WHITE BLOOD COUNT 6.8 K/mm3 (4.0-10.0)
[2021-03-28 11:02] LABS: CALCIUM 8.5 mg/dL (8.5-10.1)
[2021-03-28 11:03] LABS: BLOOD UREA NITROGEN 59.7 mg/dL (7-18)
[2021-03-28 11:06] LABS: ALBUMIN 2.4 g/dl (3.4-5.0)
[2021-03-28 11:07] LABS: BILIRUBIN,TOTAL 1.5 mg/dL (0.2-1)
[2021-03-28 11:08] LABS: TOT PROT 5.6 g/dl (6.4-8.2)
[2021-03-28] MEDS ORDERED: ACETAMINOPHEN 325 MG TABLET (FP) PO PRN (14:38)
[2021-03-28] MEDS: DICLOFENAC SODIUM 1% TP SCH (21:46)
[2021-03-29] MEDS: INSULIN SLIDING SCALE (NOVOLOG) 1 VIAL SQ SCH ×4 (05:34→18:11)
[2021-03-29 09:20] LABS: BASO % 0.9 % (0-2.0); EOS % 2.7 % (0-4.5); HEMATOCRIT 24.8 % (35.4-49); HEMOGLOBIN 8.4 GM/dL (11.7-16.9); LYMPH % 15.1 % (8-40); MCH 26.3 pg (25.7-33.7); MCHC 33.9 g/dl (32.0-35.9); MEAN CELL VOLUME 77.8 fl (80-96); MEAN PLT VOLUME 7.9 fl (7.5-11.1); MONO % 9.5 % (3.8-10.2); NEUT % 71.8 % (42.8-82.8); PLATELET COUNT 364 10^3/uL (134-434); RBC 3.19 M/mm3 (4.00-5.60); RDW 22.4 % (11.9-15.9); WHITE BLOOD COUNT 6.7 K/mm3 (4.0-10.0)
[2021-03-29] MEDS: SEVELAMER CARBONATE 800 MG TAB (FP) PO SCH ×3 (09:58→18:10)
[2021-03-29] MEDS: NIFEdipine E.R. 90 MG TABLET PO SCH (11:54)
[2021-03-29] MEDS: CARVEDILOL 6.25 MG TABLET (FP) PO SCH ×2 (11:54→23:00)
[2021-03-29] MEDS: DICLOFENAC SODIUM 1% TP SCH ×2 (11:55→23:00)
[2021-03-29] MEDS: PANTOPRAZOLE SODIUM 40 MG VIAL IVPUSH SCH (11:56)
[2021-03-29] MEDS ORDERED: POLYETHYLENE GLYCOL (HEALTHYLAX) 3350 17 GM PACKET PO PRN (19:24)
[2021-03-30] MEDS: INSULIN SLIDING SCALE (NOVOLOG) 1 VIAL SQ SCH ×5 (00:36→23:22)
[2021-03-30] MEDS: MELATONIN 5 MG TABLETS PO PRN (00:44)
[2021-03-30 09:12] LABS: BASO % 0.7 % (0-2.0); EOS % 3.2 % (0-4.5); HEMATOCRIT 23.6 % (35.4-49); HEMOGLOBIN 7.9 GM/dL (11.7-16.9); LYMPH % 15.1 % (8-40); MCH 26.1 pg (25.7-33.7); MCHC 33.4 g/dl (32.0-35.9); MEAN CELL VOLUME 78.1 fl (80-96); MEAN PLT VOLUME 7.8 fl (7.5-11.1); MONO % 11.1 % (3.8-10.2); NEUT % 69.9 % (42.8-82.8); PLATELET COUNT 348 10^3/uL (134-434); RBC 3.03 M/mm3 (4.00-5.60); RDW 22.1 % (11.9-15.9); WHITE BLOOD COUNT 5.5 K/mm3 (4.0-10.0)
[2021-03-30] MEDS ORDERED: PT OWN MED DRAWER 7, Y5N ONE (09:14)
[2021-03-30] MEDS: PANTOPRAZOLE SODIUM 40 MG VIAL IVPUSH SCH (09:25)
[2021-03-30] MEDS: NIFEdipine E.R. 90 MG TABLET PO SCH (09:26)
[2021-03-30] MEDS: CARVEDILOL 6.25 MG TABLET (FP) PO SCH (09:26)
[2021-03-30] MEDS: POLYETHYLENE GLYCOL (HEALTHYLAX) 3350 17 GM PACKET PO SCH (09:26)
[2021-03-30] MEDS: SEVELAMER CARBONATE 800 MG TAB (FP) PO SCH ×3 (09:26→17:07)
[2021-03-30] MEDS: DICLOFENAC SODIUM 1% TP SCH ×2 (09:26→23:22)
[2021-03-30 09:50] LABS: ANISOCYTOSIS 2+; MACROCYTOSIS 0; PLATELET ESTIMATE NORMAL; TARGET CELLS 1+
[2021-03-30] MEDS ORDERED: INSULIN (NOVOLOG) ASPART 100 UNITS/ML 10ML VIAL ONE (21:24)
[2021-03-31] MEDS: MELATONIN 5 MG TABLETS PO PRN ×2 (00:08→23:20)
[2021-03-31] MEDS: CARVEDILOL 6.25 MG TABLET (FP) PO SCH ×3 (00:10→21:57)
[2021-03-31] MEDS: INSULIN SLIDING SCALE (NOVOLOG) 1 VIAL SQ SCH ×4 (06:34→23:13)
[2021-03-31 08:42] LABS: BASO % 0.4 % (0-2.0); EOS % 3.9 % (0-4.5); HEMATOCRIT 22.5 % (35.4-49); HEMOGLOBIN 7.5 GM/dL (11.7-16.9); LYMPH % 16.8 % (8-40); MCH 25.7 pg (25.7-33.7); MCHC 33.2 g/dl (32.0-35.9); MEAN CELL VOLUME 77.4 fl (80-96); MEAN PLT VOLUME 7.7 fl (7.5-11.1); MONO % 11.3 % (3.8-10.2); NEUT % 67.6 % (42.8-82.8); PLATELET COUNT 353 10^3/uL (134-434); RBC 2.91 M/mm3 (4.00-5.60); RDW 22.8 % (11.9-15.9); WHITE BLOOD COUNT 5.8 K/mm3 (4.0-10.0)
[2021-03-31 08:46] LABS: INR 1.2 (0.83-1.09); PROTHROMBIN TIME (PATIENT) 14.4 SEC (9.7-13.0)
[2021-03-31] MEDS: NIFEdipine E.R. 90 MG TABLET PO SCH (08:59)
[2021-03-31] MEDS: POLYETHYLENE GLYCOL (HEALTHYLAX) 3350 17 GM PACKET PO SCH (09:01)
[2021-03-31] MEDS: DICLOFENAC SODIUM 1% TP SCH ×2 (09:01→22:00)
[2021-03-31] MEDS: PANTOPRAZOLE SODIUM 40 MG VIAL IVPUSH SCH (09:01)
[2021-03-31] MEDS: SEVELAMER CARBONATE 800 MG TAB (FP) PO SCH ×3 (09:01→17:29)
[2021-03-31 09:04] LABS: BLOOD UREA NITROGEN 35.6 mg/dL (7-18); CALCIUM 8.7 mg/dL (8.5-10.1)
[2021-04-01] MEDS: INSULIN SLIDING SCALE (NOVOLOG) 1 VIAL SQ SCH ×3 (05:56→17:47)
[2021-04-01 08:29] LABS: BLOOD UREA NITROGEN 29.5 mg/dL (7-18)
[2021-04-01 08:30] LABS: CALCIUM 8.7 mg/dL (8.5-10.1)
[2021-04-01 08:32] LABS: CREATININE 2.7 mg/dL (0.55-1.3)
[2021-04-01] MEDS ORDERED: PT OWN MED DRAWER 7, Y5N ONE (10:02)
[2021-04-01] MEDS: POLYETHYLENE GLYCOL (HEALTHYLAX) 3350 17 GM PACKET PO SCH (10:10)
[2021-04-01] MEDS: SEVELAMER CARBONATE 800 MG TAB (FP) PO SCH ×2 (10:10→13:49)
[2021-04-01] MEDS: NIFEdipine E.R. 90 MG TABLET PO SCH (10:10)
[2021-04-01] MEDS: CARVEDILOL 6.25 MG TABLET (FP) PO SCH ×2 (10:10→22:16)
[2021-04-01] MEDS: DICLOFENAC SODIUM 1% TP SCH ×2 (10:11→22:17)
[2021-04-01 10:28] LABS: EOS % 3.1 % (0-4.5); HEMATOCRIT 24.8 % (35.4-49); HEMOGLOBIN 8.2 GM/dL (11.7-16.9); LYMPH % 13.4 % (8-40); MCH 25.5 pg (25.7-33.7); MCHC 32.9 g/dl (32.0-35.9); MEAN CELL VOLUME 77.5 fl (80-96); MEAN PLT VOLUME 7.9 fl (7.5-11.1); MONO % 10.6 % (3.8-10.2); NEUT % 71.9 % (42.8-82.8); PLATELET COUNT 370 10^3/uL (134-434); RDW 22.1 % (11.9-15.9); WHITE BLOOD COUNT 5.8 K/mm3 (4.0-10.0)
[2021-04-01] MEDS ORDERED: INSULIN (NOVOLOG) ASPART 100 UNITS/ML 10ML VIAL ONE ×2 (13:16→18:47)
[2021-04-01] MEDS: SEVELAMER CARBONATE 0.8 GM POWDER PACKET PO SCH ×2 (13:19→17:47)
[2021-04-01] MEDS: TAMSULOSIN HCL 0.4 MG CAP PO SCH (14:12)
[2021-04-02] MEDS: INSULIN SLIDING SCALE (NOVOLOG) 1 VIAL SQ SCH ×5 (00:50→23:00)
[2021-04-02 08:32] LABS: BASO % 0.8 % (0-2.0); HEMATOCRIT 22.1 % (35.4-49); HEMOGLOBIN 7.4 GM/dL (11.7-16.9); MCHC 33.5 g/dl (32.0-35.9); MEAN CELL VOLUME 74.5 fl (80-96); MEAN PLT VOLUME 7.4 fl (7.5-11.1); MONO % 11.8 % (3.8-10.2); NEUT % 68.4 % (42.8-82.8); PLATELET COUNT 357 10^3/uL (134-434); RBC 2.97 M/mm3 (4.00-5.60); RDW 22.7 % (11.9-15.9); WHITE BLOOD COUNT 4.8 K/mm3 (4.0-10.0)
[2021-04-02] MEDS ORDERED: PT OWN MED DRAWER 7, Y5N ONE (08:35)
[2021-04-02] MEDS: SEVELAMER CARBONATE 0.8 GM POWDER PACKET PO SCH ×3 (08:47→17:05)
[2021-04-02] MEDS: CARVEDILOL 6.25 MG TABLET (FP) PO SCH ×2 (09:19→22:31)
[2021-04-02] MEDS: POLYETHYLENE GLYCOL (HEALTHYLAX) 3350 17 GM PACKET PO SCH (09:20)
[2021-04-02] MEDS: DICLOFENAC SODIUM 1% TP SCH ×2 (09:20→22:19)
[2021-04-02] MEDS: NIFEdipine E.R. 90 MG TABLET PO SCH (09:20)
[2021-04-02] MEDS: TAMSULOSIN HCL 0.4 MG CAP PO SCH (09:20)
[2021-04-02] MEDS ORDERED: BISACODYL 10 MG SUPP.RECT PR PRN (14:01)
[2021-04-02] MEDS ORDERED: INSULIN (NOVOLOG) ASPART 100 UNITS/ML 10ML VIAL ONE (21:01)
[2021-04-02 22:31] VITALS: BP 95/46; PULSE 58; TEMP 98.2
== END 2021-04-02 23:50 | disposition short-term general hospital (02) | DRG 378 ==
LOC: JER 22:13 → JERBED 03-27 02:36 → J5S 03-27 09:27 → J7W 03-29 21:03
PROVIDERS: ADMIT Internal Medicine; ATTEND Internal Medicine
PROC: 30233N1 Transfusion of Nonautologous Red Blood Cells into Peripheral Vein, Percutaneous Approach (ICD-10-PCS; 2021-03-27)
PROC: 0DB68ZX Excision of Stomach, Via Natural or Artificial Opening Endoscopic, Diagnostic (ICD-10-PCS; principal; 2021-03-31 10:45)
DX: K25.2 Acute gastric ulcer with both hemorrhage and perforation (principal); I50.22 Chronic systolic (congestive) heart failure; I13.0 Hypertensive heart and chronic kidney disease with heart failure and stage 1 through stage 4 chronic kidney disease, or unspecified chronic kidney disease; I69.351 Hemiplegia and hemiparesis following cerebral infarction affecting right dominant side; N17.9 Acute kidney failure, unspecified; K25.4 Chronic or unspecified gastric ulcer with hemorrhage; D50.0 Iron deficiency anemia secondary to blood loss (chronic); N18.30 Chronic kidney disease, stage 3 unspecified; E11.9 Type 2 diabetes mellitus without complications; I25.10 Atherosclerotic heart disease of native coronary artery without angina pectoris; Z98.61 Coronary angioplasty status
CPT/HCPCS: 36415; 36430; 70450-TC; 71045-TC-FY; 80048; 80053; 81003; 82272; 82550; 82962; 83735; 84100; 84484; 85025; 85610; 86850; 86900; 86901; 86922; 87086; 93005; 93010; 93306-TC; 97116-GP; 97161-GP; 99285-25; C9803; P9058; U0003; U0005

== ENCOUNTER 2021-04-19 07:35 | Emergency (ER) | payer OTHER ==
[2021-04-19] MEDS ORDERED: OCTREOTIDE ACETATE 50 MCG/1 ML - 1 ML VIAL IVPUSH ONE (08:10)
[2021-04-19] MEDS ORDERED: PANTOPRAZOLE SODIUM 40 MG in SODIUM CHLORIDE 100 ML IVPB ONE (08:10)
[2021-04-19 09:06] LABS: BASO % 1.2 % (0-2.0); EOS % 0.6 % (0-4.5); HEMATOCRIT 19.5 % (35.4-49); MCH 23.8 pg (25.7-33.7); MCHC 32.2 g/dl (32.0-35.9); MEAN PLT VOLUME 8.2 fl (7.5-11.1); MONO % 6.8 % (3.8-10.2); NEUT % 78.4 % (42.8-82.8); PLATELET COUNT 218 10^3/uL (134-434); RBC 2.63 M/mm3 (4.00-5.60); RDW 22.2 % (11.9-15.9); RETICULOCYTES 1.48 % (0.5-1.5); WHITE BLOOD COUNT 6.1 K/mm3 (4.0-10.0)
[2021-04-19 09:13] LABS: HEMOGLOBIN 6.3 GM/dL (11.7-16.9)
[2021-04-19 09:15] LABS: INR 2.66 (0.83-1.09); PROTHROMBIN TIME (PATIENT) 31.8 SEC (9.7-13.0)
[2021-04-19 09:18] LABS: ACTIVATED PTT 37.4 SECONDS (25.2-36.5)
[2021-04-19 09:30] LABS: CALCIUM 9.1 mg/dL (8.5-10.1)
[2021-04-19 09:32] LABS: ALBUMIN 2.8 g/dl (3.4-5.0); BLOOD UREA NITROGEN 84.4 mg/dL (7-18)
[2021-04-19 09:36] LABS: BILIRUBIN,TOTAL 0.7 mg/dL (0.2-1); TOT PROT 6.3 g/dl (6.4-8.2)
[2021-04-19] MEDS ORDERED: PHYTONADIONE 10 MG/1 ML AMP IVPB ONE (10:53)
[2021-04-19 15:17] LABS: ANISOCYTOSIS 3+; MACROCYTOSIS 2+; OVALOCYTE 2+
[2021-04-19 16:46] LABS: HEMATOCRIT 24.4 % (35.4-49); MCH 25.9 pg (25.7-33.7); MCHC 32.8 g/dl (32.0-35.9); MEAN CELL VOLUME 78.9 fl (80-96); MEAN PLT VOLUME 8.9 fl (7.5-11.1); PLATELET COUNT 204 10^3/uL (134-434); RBC 3.09 M/mm3 (4.00-5.60); RDW 21.8 % (11.9-15.9); WHITE BLOOD COUNT 7.3 K/mm3 (4.0-10.0)
[2021-04-19 18:55] VITALS: PULSE 94; TEMP 98.3
[2021-04-19 19:04] VITALS: BP 139/68
== END 2021-04-19 18:00 ==
LOC: JER 07:35
PROC: 3E033GC Introduction of Other Therapeutic Substance into Peripheral Vein, Percutaneous Approach (ICD-10-PCS; principal; 2021-04-19)
PROC: 3E033GC Introduction of Other Therapeutic Substance into Peripheral Vein, Percutaneous Approach (ICD-10-PCS; 2021-04-19)
PROC: 3E033GC Introduction of Other Therapeutic Substance into Peripheral Vein, Percutaneous Approach (ICD-10-PCS; 2021-04-19)
DX: K92.2 Gastrointestinal hemorrhage, unspecified (principal); K92.0 Hematemesis; D64.9 Anemia, unspecified
CPT/HCPCS: 36415; 36430; 36511; 71045-TC-FY; 80053; 82550; 84484; 85025; 85027; 85045; 85610; 85730; 86850; 86900; 86901; 86922; 93005; 93010; 99285-25; C9803; P9017; P9038; P9058; U0003; U0005

== ENCOUNTER 2023-01-19 05:01 | Day surgery (SDC) | payer OTHER ==
[2023-01-17 13:07] VITALS: BMI 20.5
[2023-01-19 07:02] VITALS: RESP 18
[2023-01-19] MEDS ORDERED: LIDOCAINE HCL 1%, 10 MG/ML (10ML VIAL) MDV ONE (07:17)
[2023-01-19] MEDS ORDERED: HEPARIN NA (PORCINE) 5,000 UNITS/ML 1ML VIAL ONE (07:17)
[2023-01-19 07:46] VITALS: BP 208/128; PULSE 90; TEMP 97.2
== END 2023-01-19 07:55 | disposition home or self-care (01) ==
LOC: JASU-SURG 05:01
PROVIDERS: ATTEND Surgery Vascular Surgery
DX: Z53.8 Procedure and treatment not carried out for other reasons (principal)
CPT/HCPCS: J1644